=== PATIENT | male | born 1970 | race African-American/Black ===

== ENCOUNTER → 2018-02-26 01:01 | Outpatient (CLI) | payer MEDICAID, SELFPAY ==
[2018-02-26] MEDS: Gadoterate meglumine 20 ML VIAL IVP (10:02)
--- NOTE | 2018-02-26 10:10 | DI.REPORT_ITS ---
SYMPTOM/DIAGNOSIS: LEFT INSULA LESION ON CT HEAD, ABNL CT SCAN OF HEAD R93.0 BRAIN MRI: The study was accomplished according to the usual protocol. Sagittal T2, axial T2 diffusion weighted axial T2 hemo, axial T1, and T2 axial flare blade and post gadolinium enhanced coronal and axial T1 pulsed sequences were performed. There is no evidence of a hemorrhage or mass, and nothing to suggest an insular abnormality. The findings are consistent with small vessel disease. The ventricles are normal. There is nothing to suggest an infarct and no regions of contrast enhancement are apparent. Note is incidentally made of bilateral maxillary retention cysts. The paranasal sinuses are otherwise unremarkable. There is no evidence of a mastoid effusion. SUMMARY: No hemorrhage, mass or infarct is identified. There are symmetrical regions of increased signal in the posterior parietal white matter presumed to represent small vessel disease. Note is incidentally made of bilateral maxillary retention cysts.
== END ==
PROVIDERS: PCP Internal Medicine; Visit Provider Psychiatry & Neurology Neurology
DX: R93.0 Abnormal findings on diagnostic imaging of skull and head, not elsewhere classified (principal); I67.9 Cerebrovascular disease, unspecified; J34.1 Cyst and mucocele of nose and nasal sinus
CPT/HCPCS: 70553

== ENCOUNTER 2020-09-13 02:34 | Outpatient (CLI) | payer OTHER, SELFPAY | END 2020-09-13 02:35 | disposition home or self-care (01) | LOC: LBO 02:34 | PROVIDERS: PCP Internal Medicine; Visit Provider Otolaryngology Otolaryngology/Facial Plastic Surgery | DX: R68.89 Other general symptoms and signs (principal); J31.0 Chronic rhinitis | CPT/HCPCS: 36415; 86003 ==

== ENCOUNTER 2020-10-21 11:22 | Emergency (ER) | payer OTHER, SELFPAY ==
--- OUTSIDE RECORDS SUMMARY | 2020-10-21 11:29 | XMS_ITS ---
:1970 Author Care Team Providers Name Role Phone DR. CECY BENAVIDES Primary Care Provider [phone] DR. CECY BENAVIDES Referring Provider [phone] SADIA ANSLEY DO Urban Renewal Manager [phone] [facility] Adjunct Instructor In Economics [phone] CECY BENAVIDES (DIRECT) Primary Care Provider [phone] Allergies Code Code System Name Reaction Severity Status Onset [id number] Myalgias Moderate Active Reductase (Muscle Pain) 3 Inhibitors [id number] RxNorm Apple Anaphylaxis ? Active ? Nut - Anaphylaxis ? Active ? Unspecified [place] ? ? Active ? NKDA ? Medications Name Status Start Date Stop Date ? ? amlodipine 2.5 mg tablet Completed ? 021 Take 1 tablet every day by oral route for 30 days. amlodipine 5 mg tablet Active ? Not avail able Take 1 tablet every day by oral route for 30 days. amoxicillin 500 mg capsule Completed ? 05/09 Take one tablet BID for 10 days- ER 04/04/2017 armodafinil 150 mg tablet Completed ? 2018 take 1 tablet by mouth every morning Asmanex HFA 200 mcg/actuation aerosol inhaler Completed ? 09/11/2019 Inhale 2 puffs twice a day by inhalation route for 30 days. aspirin 81 mg tablet,delayed release Completed ? 02/16/2018 Take 1 tablet every day by oral route. azithromycin 250 mg tablet Completed ? 09/19 TAKE 2 TABLETS (500 MG) BY ORAL ROUTE O NCE DAILY FOR 1 DAY THEN 1 TABLET (250 MG) BY ORAL ROUTE ONCE DAILY FOR 4 DAYS celecoxib 200 mg capsule Completed ? 021 Take 1 capsule every day by oral route for 90 days. ciprofloxacin 500 mg tablet Active ? Not available Take 1 tablet every 12 hours by oral route for 14 days. Citrucel Sugar Free oral powder Active ? Not available 1 capful in a glass of water once daily Colace 100 mg capsule Active ? Not availa ble Take 1 capsule every day by oral route for 30 days. colchicine 0.6 mg tablet Completed 12/01/2018 020 Take 1 tablet every day by oral route. Compazine 5 mg tablet Completed ? 07/02/2017 Take 1 tablet every 8 hours by oral route as needed. Cosopt (PF) 2 %-0.5 % eye drops in a dropperette Completed 10/22/2017 07/03/2018 INSTILL 1 DROP INTO AFFECTED EYE(S) BY OPHTHALMIC ROUTE 2 TIMES PER DAY cyclobenzaprine 5 mg tablet Completed ? 06/20 Take 1 tablet as needed by oral route at bedtime. diclofenac potassium 50 mg tablet Completed ? 07/02/2017 take 1 tablet by mouth once daily if needed with food dicyclomine 10 mg capsule Completed ? 2016 Take 1 capsule 4 times a day by oral route. duloxetine 20 mg capsule,delayed release Completed ? 03/11/2019 take 1 capsule by mouth twice a day duloxetine 30 mg capsule,delayed release Active ? Not available take 1 capsule by mouth twice a day Durezol 0.05 % eye drops Completed 09/10/2017 018 INSTILL 1 DROP INTO AFFECTED EYE(S) BY OPHTHALMIC ROUTE 5 TIMES PER DAY ;START 24HRS POST OP X 2 WKS; THEN 2 TIMES/DAY X 7 DAYS; THEN TAPER Elocon 0.1 % topical cream Completed ? 05/31 APPLY A THIN LAYER TO THE AFFECTED AREA(S) BY TOPICAL ROUTE ONC E DAILY epinephrine 0.3 mg/0.3 mL injection, auto-injector Active ? Not available INJECT INTRAMUSCULARLY IF NEEDED FOR ANAPHLAXIS esomeprazole magnesium 40 mg capsule,delayed release Active ? Not available Take 1 capsule twice a day by oral route for 90 days. ezetimibe 10 mg tablet Active ? Not avail able take 1 tablet by mouth once daily Flovent Diskus 250 mcg/actuation powder for inhalation Completed ? 02/16/2018 Inhale 1 puff twice a day by inhalation route. gargle after each time fluticasone propionate 50 mcg/actuation nasal spray,suspension A ctive ? Not available [place] 2 sprays twice a day by intranasal route. folic acid 1 mg tablet Active 10/21/2018 Not avail able Take 1 tablet every day by oral route. gabapentin 600 mg tablet Completed ? 017 TAKE 1 TABLET (600 MG) BY ORAL ROUTE in the am and at noon and 2 at bedtime guaifenesin ER 600 mg tablet, extended release 12 hr Completed ? 09/19/2017 Take 1 tablet every 12 hours by oral route for 10 days. Inderal XL 80 mg capsule,extended release Completed ? 05/19/2017 take 1 capsule by mouth once daily irbesartan 150 mg tablet Completed ? 020 take 1.5 tablet by mouth once daily irbesartan 300 mg-hydrochlorothiazide 12.5 mg tablet Active ? Not available take 1 tablet by mouth every morning Kenalog 40 mg/mL suspension for injection Completed ? 12/10/2019 Take 1 mL by injection route. lancets Active ? Not available Patient needs a new glucose meter - One Touch Ultra and the lancets to go with the machine. Please issue one meter. Dx E11.9- This is medically necessary. 09/03/19-Called into [place] at [facility] with 3 refills Linzess 145 mcg capsule Completed ? 07/08/20 20 Take 1 capsule every day by oral route for 90 days. Linzess 290 mcg capsule Active ? Not avai lable Take 1 capsule every day by oral route for 30 days. loratadine 10 mg tablet Active ? Not avai lable Take 1 tablet every day by oral route. losartan 25 mg tablet Completed ? 12/16/2017 take 1 tablet by mouth once daily losartan 50 mg tablet Completed ? 10/07/2018 take 1 tablet by mouth once daily Lyrica 75 mg capsule Completed 06/05/2020 07/05/2020 Take 1 capsule every day by oral route. Maalox Advanced 200 mg-200 mg-20 mg/5 mL oral suspension Active ? Not available Take 10 mL 4 times a day by oral route as needed. magnesium oxide 400 mg (241.3 mg magnesium) tablet Completed ? 02/16/2018 Take 1 tablet every day by oral route. meclizine 25 mg tablet Completed ? 8 take 1 tablet by mouth three times a day if needed methotrexate 2.5 mg tablet Active 10/24/2018 Not a vailable Take 6 tablets every week by oral route. metoprolol succinate ER 25 mg tablet,extended release 24 hr Acti ve ? Not available Take 1.5 tablets every day by oral route for 30 days. Miralax 17 gram/dose oral powder Active ? Not available TAKE 17 GRAM MIXED WITH 8 OZ. WATER, JU ICE, SODA, COFFEE OR TEA BY ORAL ROUTE ONCE DAILY as needed modafinil 100 mg tablet Completed 01/13/2017 06/17/20 17 TAKE 1- 2 TABLETS (200 MG) BY ORAL ROUTE TWICE DAILY NEEDED modafinil 200 mg tablet Unknown 12/25/2016 Not avai lable Take 1 tablet every day by oral route. pilocarpine 5 mg tablet Completed 10/14/2019 07/25/19 21 Take 1 tablet 3 times a day by oral route as needed. prednisone 20 mg tablet Completed ? 11/15/19 20 3 tab po daily for 2 days then 2 tab da merced for 2 days then 1 tab daily for 2 days - take with food pregabalin 25 mg capsule Active ? Not thuy ilable take 1 capsule by mouth at bedtime propranolol ER 60 mg capsule,24 hr,extended release Completed ? 06/06/2017 1 cap every other day for 10 day then stop propranolol ER 80 mg capsule,24 hr,extended release Unknown ? Not available Take 1 capsule(s) every day by oral route. Pulmicort Flexhaler 180 mcg/actuation breath activated Completed ? 09/27/2020 Inhale 2 puffs twice a day by inhalation route for 30 days. gargle after Remicade Active 10/22/2018 Not available per rheum , for behcet 5mg/kg q 6 wk riboflavin (vitamin B2) Completed ? 10/16/19 18 200 mg daily rizatriptan 5 mg tablet Completed 12/25/2017 07/03/20 18 TAKE 1 TABLET (5 MG) BY ORAL ROUTE ONCE , MAY REPEAT AT 2 HOUR INTERVALS; DO NOT EXCEED 20 MG IN 24 HOURS Singulair Active ? Not available 10 mg qd for allergies Sonata 10 mg capsule Completed 08/05/2016 07/02/2017 Take 1 capsule every day by oral route at bedtime. tamsulosin 0.4 mg capsule Active ? Not av ailable Take 1 capsule every day by oral route after meals for 30 days. Tessalon Perles 100 mg capsule Completed 02/12/2018 1 09/03/2017 Take 1 capsule 3 times a day by oral route as needed for 30 day s. tizanidine 4 mg tablet Completed ? 1 Take 1 tablet as needed by oral route at bedtime for 30 days. 1/2 - 1 tablet at bedtime as needed for muscle spasm/pain Topamax 25 mg tablet Completed ? 07/02/2017 Take 1.5 tablets twice a day by oral route for 30 days. start at 1/d in evening and then after 1 wk increase to twice d aily Topamax 50 mg tablet Completed ? 09/19/2017 Take 1 tablet twice a day by oral route for 30 days. topiramate 100 mg tablet Completed 08/10/2017 018 Take 1 tablet every day by oral route in the evening. topiramate 200 mg tablet Completed ? 019 Take 1 tablet every day by oral route at bedtime. triamcinolone acetonide 0.1 % topical ointment Active 1 09/08/2018 Not available APPLY A THIN LAYER TO THE AFFECTED AREA(S) BY TOPICAL ROUTE 2 T IMES PER DAY Trulicity 0.75 mg/0.5 mL subcutaneous pen injector Completed ? 09/09/2019 Inject 0.5 mL every week by subcutaneous route for 90 days. Trulicity 1.5 mg/0.5 mL subcutaneous pen injector Active ? Not available INJECT 0.5ML (1.5MG) SUBCUTANEOUSLY EVERY WEEK Tylenol Arthritis Pain 650 mg tablet,extended release Active ? Not available Take 2 tablets twice a day by oral route for 30 days. Ventolin HFA 90 mcg/actuation aerosol inhaler Active ? Not available Inhale 2 puffs every 4 hours by inhalation route as needed. use as needed if short of breath, wheez ing or cough , or before walking up the hill Victoza 3-Pranav 0.6 mg/0.1 mL (18 mg/3 mL) subcutaneous pen inject or Completed ? 05/07/2019 Inject 1.2 mg every day by subcutaneous route for 30 days. Vitamin D2 1,250 mcg (50,000 unit) capsule Active ? Not available take 1 capsule by mouth every week Vitamin D3 50 mcg (2,000 unit) capsule Completed ? 12/01/2018 Take 1 capsule every day by oral route with meals. Zantac 150 mg tablet Completed ? 07/08/2019 Take 1 tablet twice a day by oral route. Zofran Completed ? 05/06/2019 prescribed by ER. Notes: autoPAP titration started 02/03 optimal pressure was found to be 8- 18 cwp- Problems Name Status Onset Date Source ? Fibromyalgia Active 01/26/2013 ? Headache Active 01/26/2013 ? Abdominal Pain Active 01/26/2013 ? Arthritis Active 04/12/2013 ? Ulcerative Rhinitis Unknown 08/21/2013 ? Polyp of Colon Active 03/21/2014 ? Insomnia Active 09/30/2014 ? Hypertensive Disorder Active 09/30/2014 ? Neck Pain Active 09/30/2014 ? Shoulder Joint Pain Active 09/28/2015 ? Cervical Disc Disorder with Radiculopathy Active 2015 ? Low Back Pain Active 12/11/2015 ? Small Bowel Bacterial Overgrowth Syndrome Unknown 2015 ? Knee Pain Active 03/13/2016 ? Snoring Symptoms Unknown 08/24/2016 ? Steatosis of Liver Active 09/05/2016 ? Obstructive Sleep Apnea Syndrome Active 10/29/2016 ? Dyspnea on Exertion Unknown 03/18/2017 ? 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 Obesity Active 05/11/2017 ? Migraine Active 05/20/2017 ? Gallstone Active 05/20/2017 ? Near Syncope Active 05/20/2017 ? Anxiety Disorder Active 05/24/2017 ? Carpal Tunnel Syndrome Active 06/08/2017 ? Vertigo Active 06/08/2017 ? Vitamin D Deficiency Active 06/10/2017 ? Numbness and Tingling Sensation of Skin Active 06/10/20 17 ? Protein Electrophoresis Abnormal Unknown 06/10/2017 ? Type 2 Diabetes Mellitus Active 06/17/2017 ? Uveitis Active 09/11/2017 ? Syncope Active 10/19/2017 ? 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 Chronic Post-traumatic Stress Disorder Active 9 ? Constipation Active 12/10/2019 ? Spinal Stenosis of Lumbar Region Active 12/20/2019 ? Intertrigo Active 02/02/2020 ? Acetabular Labrum Tear Active 04/14/2020 ? Bacterial Overgrowth Syndrome Active ? ? Hyperlipidemia Active ? ? Sickle Cell Trait Active ? ? Depressive Disorder Active ? ? Allergic Rhinitis Active ? ? Gastroesophageal Reflux Disease Active ? ? Irritable Bowel Syndrome Active ? ? Adult Health Examination Active ? ? Tear of Right Rotator Cuff Active ? ? Notes: Elevated CPK: Chronic stanton vated CPK, AND h/o diffuse pain seem to have worsennped after statins in 2012 , pain is better but still hi CPK mildly -no treatment for now. Procedures Date Name Performed by ? 08/23/2020 Prosthetic Arthroplasty of the Hip Infor mation not available Notes: left SABRINA 01/29/2016 Lissette Arthrs Srg Capsulorraphy Information not available Notes: 01/29/16 Right arth roscopic shoulder surgery and acromial decompression 07/21/2004 Appendectomy Information not avai lable 09/02/2016 US, Liver DO Not Use [facility] [address] [place] [address] (Work [address]) 03/17/2017 XR, Chest, 2 View DO Not Use [facility] ospital Radiology [address] [place] [address] (Work Place) 04/01/2017 Electrocardiogram DO Not Use [facility] [address] [place] [address] (Work Place) 05/09/2017 CT, Chest, W/ Contrast DO Not Use [facility] [address], [place] [id number] (Work Place) 05/09/2017 US, Echocardiogram DO Not Use [facility] [address] [place], [place] [id number] (Work Place) 05/15/2017 CT, Chest, W/o Contrast DO Not Use [facility] [address] [place] [address] (Work Place) 06/06/2017 Holter Monitor DO Not Use [facility] [address], [place] [id number] (Work Place) 09/13/2017 XR, Chest, 2 View DO Not Use [facility] Radiology [address] [place] [address] [id number] (Work Place) 01/28/2019 XR, Abdomen, 1 View [facility] - R adiology [address], [place] [id number] (Work Place) 11/15/2019 CT, Angiogram, Chest, W/ Contrast [facility] - Radiology [address] [place] [address] (Work Place) 11/15/2019 XR, Hip, Unilateral, [address] [facility] [address] [place] [address] (Work Place) 11/15/2019 XR, Chest, 2 View [facility] adiology [address] [place] [address] (Work Place) 12/20/2019 MRI, Lumbar Spine, W/o Contrast [address] [id number] (Work Place) 06/22/2020 Electrocardiogram [facility] - Internal Medic ine [address] [place] [phone] ([address]) 06/24/2020 US, Carotid Artery [facility] adiology [address] [place] [address] (Work Place) 07/12/2020 MRI, Brain, W/o Contrast [facility] l - Radiology [address] [place] [address] (Work Place) 07/25/2020 Electrocardiogram [facility] - Internal Medic ine [address] [place] [address] [phone] ([address] [place] [address]) Results Lab Results Date Name Specimen Result Interpretation Description Value Range Status Address ? 09/27/2020 CBC W/ WB Normal Wbc 7.8 4.8-10.8 Final [facility] Manual 10^3/mm^3 10^3/mm^3 Hosp ital Diff (Lab): [address] [place] [address] ? ? WB Normal Rbc 5.71 4.20-5.90 Final [facility] 10^6/mm^3 10^6/mm^3 Hosp ital (Lab): [address] [place] [address] ? ? WB Normal Hgb 14.0 g/dL 13.5-17.5 Final [facility] g/dL Hospital (Lab): [address] [place] [address] ? ? WB Normal Hct 42 % 40-50 % Final [facility] Hospital (Lab): [address] [facility] ? ? WB Low Mcv 73.9 fL 80.0-97.0 Final [facility] Hospital (Lab): 90 [facility] ? ? WB Low Mch 24.5 pg 27.5-32.1 Final [facility] Hospital (Lab): 90 [facility] ? ? WB Normal Mchc 33 g/dL 33-36 g/dL Final [facility] (Lab): 90 [facility] ? ? WB High Rdw 14.9 % 11.6-14.8 % Final [facility] (Lab): 90 [facility] ? ? WB High Plate 434 150-400 Final [facility] 10^3/mm^3 10^3/mm^3 Hosp ital (Lab): 90 [facility] ? ? WB Normal %Neut 59 % 40-75 % Final [facility] Hospital (Lab): 90 [facility] ? ? WB Normal %Band 1 % 0-5 % Final [facility] Hospital (Lab): [facility] ? ? WB Normal %Lymp 24 % 20-45 % Final [facility] Hospital (Lab): [facility] ? ? WB Normal %Bates 9 % 2-10 % Final [facility] Hospital (Lab): [facility] ? ? WB Normal %Eosi 3 % 1-6 % Final [facility] (Lab): [facility] ? ? WB ? %Atyp 2 % ? Final [facility] 90 [facility] ? ? WB ? %Atlantic 1 % ? Final [facility] myeloc Hospital yte (Lab): 90 [facility] ? ? WB ? %Myel 1 % ? Final [facility] ([facility] 90 [facility] ? ? WB Normal Plate adequate adequate Final [facility] Hospital Estima (Lab): 90 te [facility] 09/27/2020 Hepatic P Normal Alt 61 U/L 16-63 U/L Final [facility] ttage Function Hospital Panel, (Lab): 90 Serum [facility] ? ? P Normal Ast 19 U/L 15-37 U/L Final [facility] Hospital (Lab): 90 [facility] ? ? P Normal Alkp 83 U/L 41-108 U/L Final [facility] (Lab): 90 [facility] ? ? P Normal Tbil 0.4 mg/dL <=1.2 mg/dL Final [facility] Hospital (Lab): 90 [facility] ? ? P Normal Dbil 0.10 mg/dL 0.00-0.20 Final [facility] mg/dL Hospital (Lab): [address] [place] [address] ? ? P Normal Tp 8.2 g/dL 6.4-8.2 Final [facility] g/dL Hospital (Lab): [address] [place] [address] ? ? P Normal Alb 4.2 g/dL 3.4-5.0 Final [facility] g/dL Hospital (Lab): [address] [place] [address] ? ? P ? Glob 3.99 mg/dL ? Final [facility] (Lab): [address] [place] [address] 09/27/2020 TSH + Free P Normal Tsh 0.946 mIU/mL 0.340-3.74 0 Final [facility] T4, Serum mIU/mL Hospita l (Lab): 90 [facility] 09/27/2020 C Reactive P Normal Crp 0.80 mg/dL <0.90 mg/dL Final [facility] Protein, [facility] QN, Serum (Lab): 90 or Plasma [facility] 09/27/2020 CK P Normal Ck 159 U/L 39-308 U/L Final [facility] (Creatine Hospita l Kinase), (Lab): 9 0 Total, [facility] 09/27/2020 BMP, Serum P Normal Glu 94 mg/dL 70-100 Final [facility] or Plasma mg/dL Hospita l (Lab): 90 [facility] ? ? P Normal Bun 17 mg/dL 7-18 mg/dL Final [facility] (Lab): [address] [place] [address] ? ? P High Creat 1.35 mg/dL 0.70-1.30 Final [facility] mg/dL Hospital (Lab): [address] [place] [address] ? ? P Normal Na 142 mEq/L 136-145 Final [facility] e mEq/L Hospital (Lab): [address] [place] [address] ? ? P Normal K 4.1 mEq/L 3.5-5.1 Final [facility] e mEq/L Hospital (Lab): [address] [place] [address] ? ? P Normal Cl 102 mEq/L 98-107 Final [facility] mEq/L Hospital (Lab): [address] [place] [address] ? ? P Normal Co2 25 mEq/L 21-31 mEq/L Final [facility] (Lab): [address] [place] [address] ? ? P Normal Ca 9.2 mg/dL 8.5-10.1 Final [facility] ge mg/dL Hospital (Lab): [address] [place] [address] ? ? P ? Agap 18.8 ? Final [facility] calculation Hospi lilia (Lab): [address] [place] [address] ? ? P ? Bn/cr 12.4 ratio ? Final [facility] e Hospital (Lab): [address] [place] [address] ? ? P ? Egfra 67.26 ? Final [facility] a Hospital (Lab): [address] [place] [address] ? ? P ? Egfrn 55.50 ? Final [facility] aa Hospital (Lab): [address] [place] [address] 09/27/2020 Magnesium, P Normal mg 2.2 mg/dL 1.8-2.4 Final [facility] Serum or mg/dL Hospital Plasma (Lab): [address] [place] [address] 09/27/2020 Erythrocyt WB High Esr 32.00 mm/HR 0.00-15.00 Final [facility] e mm/HR Hospital Sedimentat (Lab): 90 [facility] ille Method 09/27/2020 PSA, Serum S High PSA-D 5.55 NG/mL <4.00 NG/mL Final [facility] or Plasma Hospita l (Lab): [address] [place] [address] 09/27/2020 Culture, U ? Usour random ? Final [facility] U[facility] Hospital (Lab): 90 [facility] ? ? U ? Culre no growth at ? Final Sukhdev age sult 48HR Hospital (Lab): 90 [facility] 09/27/2020 Culture, WB ? Bdcul no growth ? Final C ottage Blood t after 5 days Hosp ital (Lab): 90 [facility] 09/27/2020 Urinalysis ? Appea Slightly ? ? Rhc - , Dipstick sunshine Cloudy Protective Signal Installer al Medicine: 103 [facility] ? ? ? Gluco Negative ? ? Rhc - se Internal Medicine: 103 [facility] ? ? ? Bilir Negative ? ? Rhc - ubin Internal Medicine: 103 [facility] ? ? ? Keton Negative ? ? Rhc - es Internal Medicine: 103 [facility] ? ? ? Speci 1.03 ? ? Rhc - fic Internal Gravit Medicine: y [address] [facility] ? ? ? Blood Trace ? ? Rhc - Internal Medicine: [address] [place] [address] ? ? ? Ph 5.0 ? ? Rhc - Internal Medicine: 103 [facility] ? ? ? Prote Trace ? ? Rhc - in Internal Medicine: [address] [place] [address] ? ? ? Urobi Normal ? ? Rhc - lirubi Internal n Medicine: [address] [place] [address] ? ? ? Nitra positive ? ? Rhc - kathe Internal Medicine: [address] [place] [address] ? ? ? Leuko Negative ? ? Rhc - cytes Internal Medicine: 103 [facility] 09/27/2020 Urinalysis Urine ? Appea Slightly ? ? Rhc - , Dipstick sunshine Cloudy Protective Signal Installer al Medicine: 103 [facility] ? ? Urine ? Gluco Negative ? ? Rhc - se Internal Medicine: 103 [facility] ? ? Urine ? Bilir Negative ? ? Rhc - ubin Internal Medicine: 103 [facility] ? ? Urine ? Keton Negative ? ? Rhc - es Internal Medicine: 103 [facility] ? ? Urine ? Speci 1.03 ? ? Rhc - fic Internal Gravit Medicine: y 103 [facility] ? ? Urine ? Blood Negative ? ? Rhc - Internal Medicine: 103 [facility] ? ? Urine ? Ph 5.0 ? ? Rhc - Internal Medicine: 103 [facility] ? ? Urine ? Prote Negative ? ? Rhc - in Internal Medicine: 103 [facility] ? ? Urine ? Urobi Normal ? ? Rhc - lirubi Internal n Medicine: 103 [facility] ? ? Urine ? Nitra negative ? ? Rhc - kathe Internal Medicine: 103 [facility] ? ? Urine ? Leuko Negative ? ? Rhc - cytes Internal Medicine: 103 [facility] 07/25/2020 Electrocar ? Rate 89/800 ? ? Rh c - diogram & Internal Rhythm Medicine: 103 [facility] ? ? ? Qrs -9 ? ? Rhc - Internal Medicine: 103 [facility] ? ? ? PA 175 ? ? Rhc - Interv Internal al Medicine: 103 [facility] ? ? ? QRS 87 ? ? Rhc - Durati Internal on Medicine: 103 [facility] ? ? ? QT 413 ? ? Rhc - Interv Internal al Medicine: 103 [facility] 06/26/2020 Electrocar ? Rate 91 & 800 ? ? Rhc - diogram & Internal Rhythm Medicine: 103 [facility] ? ? ? Qrs 12 ? ? Rhc - Internal Medicine: 103 [facility] ? ? ? PA 171 ? ? Rhc - Interv Internal al Medicine: 103 [facility] ? ? ? QRS 83 ? ? Rhc - Durati Internal on Medicine: 103 [facility] ? ? ? QT 408 ? ? Rhc - Interv Internal al Medicine: 103 [facility] 06/24/2020 Urinalysis U ? Urine random ? Final [facility] Dipstick, tion (Lab): 90 Reflex Method [facility] ? ? U Normal Color light yellow yellow Final [facility] (Lab): 90 [facility] ? ? U Normal Raji clear clear Final [facility] Hospital (Lab): 90 [facility] ? ? U Normal Spgr 1.020 1.015-1.025 Final [facility] (Lab): 90 [facility] ? ? U ? Ph 5.0 ? Final [facility] Hospital (Lab): 90 [facility] ? ? U Normal Gluc negative negative Final [facility] (Lab): 90 [facility] ? ? U Normal Bilb negative negative Final [facility] (Lab): 90 [facility] ? ? U Normal Ket negative negative Final [facility] (Lab): 90 [facility] ? ? U Normal Bld negative negative Final [facility] (Lab): 90 [facility] ? ? U Normal Prot negative negative Final [facility] (Lab): 90 [facility] ? ? U Normal Uro 0.2 E.U./dL 0.2 E.U./dL Final [facility] (Lab): 90 [facility] ? ? U Normal Nit negative negative Final [facility] (Lab): 90 [facility] ? ? U Normal Leuko negative negative Final [facility] (Lab): 90 [facility] 06/24/2020 Microalbum U High Malb 23.3 mg/L 0.0-20.0 Faustina l [facility] in/creatin mg/L Hospit al ine, Ratio (Lab): 90 Panel, [facility] ? ? U ? Ucrea 193.23 mg/dL ? Final [facility] (Lab): 90 [facility] ? ? U Normal Alb/c 12.1 calc <30.0 calc Final [facility] (Lab): 90 [facility] 06/24/2020 HbA1C WB High A1C 6.0 % <5.7 % Final [facility] (Hemoglobi Hospit al n a1C), (Lab): 90 Blood [facility] ? ? WB Normal Estav 126 calc <140 calc Final [facility] Hospital (Lab): 90 [facility] 06/24/2020 CBC W/ WB Normal Wbc 9.9 4.8-10.8 Final [facility] age Manual 10^3/mm^3 10^3/mm^3 Hosp ital Diff (Lab): [facility] ? ? WB Normal Rbc 5.74 4.20-5.90 Final [facility] 10^6/mm^3 10^6/mm^3 Hosp ital (Lab): [facility] ? ? WB Normal Hgb 14.2 g/dL 13.5-17.5 Final [facility] age g/dL Hospital (Lab): [facility] ? ? WB Normal Hct 42 % 40-50 % Final [facility] (Lab): [facility] ? ? WB Low Mcv 73.7 fL 80.0-97.0 Final [facility] Hospital (Lab): [facility] ? ? WB Low Mch 24.7 pg 27.5-32.1 Final [facility] Hospital (Lab): [facility] ? ? WB Normal Mchc 34 g/dL 33-36 g/dL Final [facility] (Lab): [facility] ? ? WB Normal Rdw 14.4 % 11.6-14.8 % Final [facility] (Lab): [facility] ? ? WB Normal Plate 305 150-400 Final [facility] lets 10^3/mm^3 10^3/mm^3 Hosp ital (Lab): [facility] ? ? WB Normal %Neut 51 % 40-75 % Final [facility] Hospital (Lab): [facility] ? ? WB Normal %Lymp 22 % 20-45 % Final [facility] hocyte Hospital (Lab): [facility] ? ? WB Normal %Bates 8 % 2-10 % Final [facility] cyte Hospital (Lab): [facility] ? ? WB ? %Atyp 19 % ? Final [facility] ([facility] ? ? WB Normal Plate adequate adequate Final [facility] Hospital Estima (Lab): 90 te [facility] ? ? WB ? Hypoc 1+ ? Final [facility] hromas Hospital ia (Lab): [facility] ? ? WB ? Micro 2+ ? Final [facility] cytosi Hospital s (Lab): 90 [facility] 06/24/2020 Erythrocyt WB Normal Esr 10.00 mm/HR 0.00-15.00 Final [facility] e mm/HR Hospital Sedimentat (Lab): 90 [facility] ille Method 06/24/2020 CMP, Serum P Normal Na 144 mEq/L 136-145 Final [facility] or Plasma mEq/L Hospita l (Lab): [facility] ? ? P Normal K 4.2 mEq/L 3.5-5.1 Final [facility] mEq/L Hospital (Lab): [address] [place] [address] ? ? P Normal Cl 107 mEq/L 98-107 Final [facility] mEq/L Hospital (Lab): [address] [place] [address] ? ? P Normal Co2 29 mEq/L 21-31 mEq/L Final [facility] Hospital (Lab): [address] [place] [address] ? ? P ? Agap 13.1 ? Final [facility] calculation Hospi lilia (Lab): [facility] ? ? P Normal Glu 99 mg/dL 70-100 Final [facility] mg/dL Hospital (Lab): [address] [place] [address] ? ? P High Bun 19 mg/dL 7-18 mg/dL Final [facility] (Lab): [address] [place] [address] ? ? P Normal Creat 1.18 mg/dL 0.70-1.30 Final [facility] mg/dL Hospital (Lab): [address] [place] [address] ? ? P ? Bn/cr 16.1 ratio ? Final [facility] (Lab): [address] [place] [address] ? ? P Normal Ca 9.2 mg/dL 8.5-10.1 Final [facility] mg/dL Hospital (Lab): [address] [place] [address] ? ? P Normal Alkp 79 U/L 41-108 U/L Final [facility] (Lab): [address] [place] [address] ? ? P High Alt 74 U/L 16-63 U/L Final [facility] (Lab): 90 [facility] ? ? P Normal Ast 22 U/L 15-37 U/L Final [facility] (Lab): 90 [facility] ? ? P Normal Tbil 0.5 mg/dL <=1.2 mg/dL Final [facility] (Lab): 90 [facility] ? ? P Normal Tp 7.1 g/dL 6.4-8.2 Final [facility] g/dL Hospital (Lab): 90 [facility] ? ? P Normal Alb 3.8 g/dL 3.4-5.0 Final [facility] g/dL Hospital (Lab): 90 [facility] ? ? P ? Glob 3.25 mg/dL ? Final [facility] (Lab): [address] [place] [address] ? ? P ? A/g 1.2 calc ? Final [facility] (Lab): [address] [place] [address] ? ? P ? Egfra 78.57 ? Final [facility] Hospital (Lab): [address] [place] [address] ? ? P ? Egfrn 64.82 ? Final [facility] Hospital (Lab): 90 [facility] 06/24/2020 CK P Normal Ck 301 U/L 39-308 U/L Final [facility] (Creatine Hospita l Kinase), (Lab): 9 0 Total, [facility] 06/24/2020 Magnesium, P Normal mg 2.1 mg/dL 1.8-2.4 Final [facility] Serum or mg/dL Hospital Plasma (Lab): 90 [facility] 06/24/2020 Lipid P High Chol 214 mg/dL <200 mg/dL Final [facility] Serum (Lab): 90 [facility] ? ? P Normal Hdl 40 mg/dL 40-60 mg/dL Final [facility] Hospital (Lab): 90 [facility] ? ? P Normal Trig 107 mg/dL 30-150 Final [facility] mg/dL Hospital (Lab): 90 [facility] ? ? P High LDL(C 153 calc <100 calc Final [facility] Hospital (Lab): 90 [facility] ? ? P ? Risk 5.3 calc ? Final [facility] (Lab): [address] [place] [address] 06/24/2020 TSH + Free P Normal Tsh 0.789 mIU/mL 0.340-3.74 0 Final [facility] T4, Serum mIU/mL Hospita l (Lab): [address] [place] [address] 06/24/2020 C Reactive P Normal Crp 0.20 mg/dL <0.90 mg/dL Final [facility] Protein, [facility] QN, Serum (Lab): 90 or Plasma [facility] 01/26/2020 HbA1C WB High A1C 6.0 % <5.7 % Final [facility] (Hemoglobi Hospit al n a1C), (Lab): 90 Blood [facility] ? ? WB Normal Estav 126 calc <140 calc Final [facility] Hospital (Lab): [address] [place] [address] 01/26/2020 CBC W/ WB Normal Wbc 10.0 4.8-10.8 Final [facility] Auto Diff 10^3/mm^3 10^3/mm^3 H ospital (Lab): [address] [place] [address] ? ? WB Normal Rbc 5.89 4.20-5.90 Final [facility] 10^6/mm^3 10^6/mm^3 Hosp ital (Lab): [address] [place] [address] ? ? WB Normal Hgb 14.7 g/dL 13.5-17.5 Final [facility] age g/dL Hospital (Lab): [address] [place] [address] ? ? WB Normal Hct 44 % 40-50 % Final [facility] Hospital (Lab): [address] [place] [address] ? ? WB Low Mcv 74.5 fL 80.0-97.0 Final [facility] fL Hospital (Lab): [address] [place] [address] ? ? WB Low Mch 25.0 pg 27.5-32.1 Final [facility] pg Hospital (Lab): [address] [place] [address] ? ? WB Normal Mchc 34 g/dL 33-36 g/dL Final [facility] (Lab): 90 [facility] ? ? WB Normal Rdw 14.3 % 11.6-14.8 % Final [facility] (Lab): 90 [facility] ? ? WB Normal Plate 304 150-400 Final [facility] 10^3/mm^3 10^3/mm^3 Hosp ital (Lab): 90 [facility] 01/26/2020 CBC, WB Normal %Neut 67 % 40-75 % Final [facility] ge Reflex [facility] Manual (Lab): 90 Diff [facility] ? ? WB Normal %Band 0 % 0-5 % Final [facility] Hospital (Lab): 90 [facility] ? ? WB Normal %Lymp 23 % 20-45 % Final [facility] ([facility] 90 [facility] ? ? WB Normal %Bates 2 % 2-10 % Final [facility] Hospital (Lab): [facility] ? ? WB Normal %Eosi 2 % 1-6 % Final [facility] Hospital (Lab): 90 [facility] ? ? WB Normal %Baso 0 % 0-1 % Final [facility] Hospital (Lab): 90 [facility] ? ? WB ? %Atyp 5 % ? Final [facility] Lymph (Lab): 90 [facility] ? ? WB ? %Atlantic 1 % ? Final [facility] myeloc [facility] yte (Lab): 90 [facility] ? ? WB ? %Myel 0 % ? Final [facility] ocyte Hospital (Lab): 90 [facility] ? ? WB ? %Prom 0 % ? Final [facility] te (Lab[facility] 90 [facility] ? ? WB ? %Sadiq 0 % ? Final [facility] t Hospital (Lab): 90 [facility] ? ? WB ? Nrbc 0 /100 WBC ? Final [facility] e Hospital (Lab): 90 [facility] ? ? WB Normal Plate adequate adequate Final [facility] let Hospital Estima (Lab): 90 te [facility] 01/26/2020 CK P Normal Ck 200 U/L 39-308 U/L Final [facility] (Creatine Hospita l Kinase), (Lab): 9 0 Total, [place] Serum [facility] 01/26/2020 Magnesium, P Normal mg 2.1 mg/dL 1.8-2.4 Final [facility] Serum or mg/dL Hospital Plasma (Lab): [address] [place] [address] 01/26/2020 BMP, Serum P High Glu 104 mg/dL 70-100 Final [facility] or Plasma mg/dL Hospita l (Lab): [address] [place] [address] ? ? P High Bun 20 mg/dL 7-18 mg/dL Final [facility] (Lab): [address] [place] [address] ? ? P Normal Creat 1.30 mg/dL 0.70-1.30 Final [facility] mg/dL Hospital (Lab): [address] [place] [address] ? ? P Normal Na 145 mEq/L 136-145 Final [facility] mEq/L Hospital (Lab): [address] [place] [address] ? ? P Normal K 3.9 mEq/L 3.5-5.1 Final [facility] mEq/L Hospital (Lab): [address] [place] [address] ? ? P Normal Cl 107 mEq/L 98-107 Final [facility] mEq/L Hospital (Lab): [address] [place] [address] ? ? P Normal Co2 27 mEq/L 21-31 mEq/L Final [facility] Hospital (Lab): [address] [place] [address] ? ? P Normal Ca 8.7 mg/dL 8.5-10.1 Final [facility] ge mg/dL Hospital (Lab): [address] [place] [address] ? ? P ? Agap 14.5 ? Final [facility] calculation Hospi lilia (Lab): [address] [place] [address] ? ? P ? Bn/cr 15.0 ratio ? Final [facility] e Hospital (Lab): [address] [place] [address] ? ? P ? Egfra 70.54 ? Final [facility] a Hospital (Lab): [address] [place] [address] ? ? P ? Egfrn 58.20 ? Final [facility] aa Hospital (Lab): [address] [place] [address] 01/26/2020 Erythrocyt WB Normal Esr 7.00 mm/HR 0.00-15.00 [place] e mm/HR Hospital Sedimentat (Lab): 90 [address], [place] ille Method 01/26/2020 Urinalysis ? Appea Clear ? ? Rh c - , Dipstick sunshine [employer] al Medicine: 103 [facility] ? ? ? Gluco Negative ? ? Rhc - se Internal Medicine: 103 [facility] ? ? ? Bilir Negative ? ? Rhc - ubin Internal Medicine: 103 [facility] ? ? ? Keton Negative ? ? Rhc - es Internal Medicine: 103 [facility] ? ? ? Speci 1.03 ? ? Rhc - fic Internal Gravit Medicine: y 103 [facility] ? ? ? Blood Negative ? ? Rhc - Internal Medicine: 103 [facility] ? ? ? Ph 5.0 ? ? Rhc - Internal Medicine: 103 [facility] ? ? ? Prote Negative ? ? Rhc - in Internal Medicine: 103 [facility] ? ? ? Urobi Normal ? ? Rhc - lirubi Internal n Medicine: 103 [facility] ? ? ? Nitra negative ? ? Rhc - kathe Internal Medicine: 103 [facility] ? ? ? Leuko Negative ? ? Rhc - cytes Internal Medicine: 103 [facility] 01/26/2020 Glucose, ? Blood 88 ? ? Rhc - Fingerstic Glucos [employer] al k, Blood e: Medicine : mg/dl 103 [facility] 11/15/2019 BMP, Serum P Normal Glu 87.0 mg/dL 70.0-100.0 F [facility] or Plasma mg/dL Hospita l (Lab): 90 [facility] ? ? P Normal Bun 12 mg/dL 7-18 mg/dL Final [facility] (Lab): 90 [facility] ? ? P Normal Creat 1.17 mg/dL 0.70-1.30 Final [facility] mg/dL Hospital (Lab): 90 [facility] ? ? P Normal Na 140 mEq/L 136-145 Final [facility] e mEq/L Hospital (Lab): [address] [place] [address] ? ? P Normal K 4.2 mEq/L 3.5-5.1 Final [facility] e mEq/L Hospital (Lab): [address] [place] [address] ? ? P Normal Cl 103 mEq/L 98-107 Final [facility] mEq/L Hospital (Lab): [address] [place] [address] ? ? P Normal Co2 26 mEq/L 21-32 mEq/L Final [facility] (Lab): [address] [place] [address] ? ? P Normal Ca 9.0 mg/dL 8.5-10.1 Final [facility] ge mg/dL Hospital (Lab): [address] [place] [address] ? ? P ? Agap 16.1 ? Final [facility] calculation Hospi lilia (Lab): [address] [place] [address] ? ? P ? Bn/cr 10.2 ratio ? Final [facility] e Hospital (Lab): [address] [place] [address] ? ? P ? Egfra 79.66 ? Final [facility] a Hospital (Lab): [address] [place] [address] ? ? P ? Egfrn 65.72 ? Final [facility] aa Hospital (Lab): [address] [place] [address] 11/15/2019 D-dimer WB Normal Ddime 166.0 NG/mL 0.0-400.0 Faustina lara [facility] FEU, QN, r NG/mL Hospital IA, Blood (Lab): [address] [place] [address] 11/15/2019 CBC W/ WB Normal Wbc 6.8 4.8-10.8 Final [facility] age Manual 10^3/mm^3 10^3/mm^3 Hosp ital Diff (Lab): [address] [place] [address] ? ? WB High Rbc 6.05 4.20-5.90 Final [facility] 10^6/mm^3 10^6/mm^3 Hosp ital (Lab): [address] [place] [address] ? ? WB Normal Hgb 15.1 g/dL 13.5-17.5 Final [facility] age g/dL Hospital (Lab): [address] [place] [address] ? ? WB Normal Hct 45 % 40-50 % Final [facility] Hospital (Lab): 90 [facility] ? ? WB Low Mcv 74.9 fL 80.0-97.0 Final [facility] fL Hospital (Lab): 90 [facility] ? ? WB Low Mch 25.0 pg 33.0-36.0 Final [facility] pg Hospital (Lab): 90 [facility] ? ? WB Normal Mchc 33 g/dL 33-36 g/dL Final [facility] (Lab): 90 [facility] ? ? WB High Rdw 15.1 % 11.6-14.8 % Final [facility] (Lab): 90 [facility] ? ? WB Normal Plate 259 150-400 Final [facility] 10^3/mm^3 10^3/mm^3 Hosp ital (Lab): 90 [facility] ? ? WB Normal %Neut 63 % 40-75 % Final [facility] Hospital (Lab): 90 [facility] ? ? WB Normal %Lymp 30 % 20-45 % Final [facility] hocyte Hospital (Lab): 90 [facility] ? ? WB Normal %Bates 6 % 2-10 % Final [facility] cyte Hospital (Lab): 90 [facility] ? ? WB Normal %Eosi 1 % 1-6 % Final [facility] Hospital (Lab): 90 [facility] ? ? WB Normal Plate adequate adequate Final [facility] Hospital Estima (Lab): 90 te [facility] ? ? WB ? Aniso 1+ ? Final [facility] Hospital s (Lab): 90 [facility] ? ? WB ? Micro 1+ ? Final [facility] Hospital s (Lab): 90 [facility] 11/02/2019 Novel Normal Sars- not detected not Final [facility] Coronaviru cov-2, detected Hosp ital s 2019, BANDAR (Lab): 90 PCR, [place] 09/09/2019 Glucose, ? Blood 104 ? ? Rhc - Fingerstic Glucos [employer] al k, Blood e: Medicine : mg/dl 103 [facility] 09/06/2019 HbA1C WB High A1C 6.4 % 4.5-6.2 % Final [facility] (Hemoglobi Hospit al n a1C), (Lab): 90 Blood [facility] ? ? WB ? Eag 137 calc ? Final [facility] Hospital (Lab): 90 [facility] 09/06/2019 Microalbum U Normal Malb 12.2 mg/L 0.0-20.0 Faustina l [facility] in/creatin mg/L Hospit al ine, Ratio (Lab): 90 Panel, [place] Urine [facility] ? ? U ? Ucrea 191 mg/dL ? Final [facility] Hospital (Lab): 90 [facility] ? ? U ? Alb/c 6.4 calc ? Final [facility] re Hospital (Lab): 90 [facility] 07/08/2019 Glucose, ? Blood 95 ? ? Rhc - Fingerstic Glucos [employer]er al k, Blood e: Medicine : mg/dl 103 [facility] 03/07/2019 CK P Normal Ck 242 U/L 39-308 U/L Final [facility] (Creatine Hospita l Kinase), (Lab): 9 0 Total, [place] Serum [facility] 03/07/2019 CMP, Serum P Normal Na 141 mEq/L 136-145 Final [facility] or Plasma mEq/L Hospita l (Lab): 90 [facility] ? ? P Normal K 4.3 mEq/L 3.5-5.1 Final [facility] e mEq/L Hospital (Lab): 90 [facility] ? ? P Normal Cl 104 mEq/L 98-107 Final [facility] mEq/L Hospital (Lab): 90 [facility] ? ? P Normal Co2 28 mEq/L 21-32 mEq/L Final [facility] Hospital (Lab): 90 [facility] ? ? P ? Agap 13.9 ? Final [facility] calculation Hospi lilia (Lab): 90 [facility] ? ? P Normal Glu 96.0 mg/dL 70.0-100.0 Final [facility] mg/dL Hospital (Lab): 90 [facility] ? ? P Normal Bun 14 mg/dL 7-18 mg/dL Final [facility] (Lab): 90 [facility] ? ? P Normal Creat 1.17 mg/dL 0.70-1.30 Final [facility] mg/dL Hospital (Lab): [address] [place] [address] ? ? P ? Bn/cr 12.1 ratio ? Final [facility] (Lab): [address] [place] [address] ? ? P Normal Ca 8.8 mg/dL 8.5-10.1 Final [facility] ge mg/dL Hospital (Lab): [address] [place] [address] ? ? P Normal Alkp 75 U/L 39-100 U/L Final [facility] (Lab): [address] [place] [address] ? ? P Normal Alt 35 U/L 16-63 U/L Final [facility] (Lab): [address] [place] [address] ? ? P Normal Ast 17 U/L 15-37 U/L Final [facility] (Lab): [address] [place] [address] ? ? P Normal Tbil 0.8 mg/dL <=1.2 mg/dL Final [facility] (Lab[facility] [address] [place] [address] ? ? P Normal Tp 7.3 g/dL 6.4-8.2 Final [facility] g/dL Hospital (Lab): [address] [place] [address] ? ? P Normal Alb 3.9 g/dL 3.4-5.0 Final [facility] g/dL Hospital (Lab): [address] [place] [address] ? ? P ? Glob 3.37 mg/dL ? Final [facility] Hospital (Lab): [address] [place] [address] ? ? P ? A/g 1.2 calc ? Final [facility] (Lab): [address] [place] [address] ? ? P ? Egfra 79.98 ? Final [facility] a Hospital (Lab): [address] [place] [address] ? ? P ? Egfrn 65.99 ? Final [facility] aa Hospital (Lab): [address] [place] [address] 03/07/2019 Vitamin P Normal Vitd 35.20 NG/mL >30.00 Final [facility] D2, NG/mL Hospital 25-Hydroxy (Lab): 90 , Serum [facility] 03/07/2019 Lipid P High Chol 201 mg/dL <200 mg/dL Final [facility] Panel W/ Hospital Direct (Lab): 90 LDL, Serum [facility] ? ? P Low Hdl 38 mg/dL 40-60 mg/dL Final [facility] Hospital (Lab): 90 [facility] ? ? P Normal Trig 104 mg/dL 30-150 Final [facility] mg/dL Hospital (Lab): 90 [facility] ? ? P High LDL(C 142 calc <100 calc Final [facility] Hospital (Lab): 90 [facility] ? ? P ? Risk 5.3 calc ? Final [facility] (Lab): 90 [facility] 03/07/2019 HbA1C WB Normal A1C 6.1 % 4.5-6.2 % Final [facility] (Hemoglobi Hospit al n a1C), (Lab): 90 Blood [facility] ? ? WB ? Eag 128 calc ? Final [facility] Hospital (Lab): 90 [facility] 01/30/2019 H Pylori Normal H. negative negative Final [facility] Ag, [facility] Immunoassa Stool (Lab): 90 y, Stool Ag, [facility] 01/28/2019 Urinalysis U Normal Color yellow yellow Final [facility] Dipstick, (Lab): 90 Reflex [facility] ? ? U Normal Raji clear clear Final [facility] (Lab): 90 [facility] ? ? U Normal Spgr 1.025 1.015-1.025 Final [facility] (Lab): 90 [facility] ? ? U ? Ph 6.0 ? Final [facility] (Lab): 90 [facility] ? ? U Normal Gluc negative negative Final [facility] (Lab): 90 [facility] ? ? U Normal Bilb negative negative Final [facility] (Lab): 90 [facility] ? ? U Normal Ket negative negative Final [facility] (Lab): 90 [facility] ? ? U Normal Bld negative negative Final [facility] (Lab): [address] [place] [address] ? ? U Normal Prot negative negative Final [facility] (Lab): [address] [place] [address] ? ? U ABNORMAL Uro 1.0 E.U./dL 0.2 E.U./dL Final [facility] (Lab): [address] [place] [address] ? ? U Normal Nit negative negative Final [facility] (Lab): [address] [place] [address] ? ? U Normal Leuko negative negative Final [facility] (Lab): [address] [place] [address] 01/28/2019 CMP, Serum P Normal Na 142 mEq/L 136-145 Final [facility] or Plasma mEq/L Hospita l (Lab): [address] [place] [address] ? ? P Normal K 4.0 mEq/L 3.5-5.1 Final [facility] mEq/L Hospital (Lab): [address] [place] [address] ? ? P Normal Cl 105 mEq/L 98-107 Final [facility] mEq/L Hospital (Lab): [address] [place] [address] ? ? P Normal Co2 24 mEq/L 21-32 mEq/L Final [facility] Hospital (Lab): [address] [place] [address] ? ? P ? Agap 17.1 ? Correcte [facility] calculation d Hospi lilia (Lab): [address] [place] [address] ? ? P High Glu 116.0 mg/dL 70.0-100.0 Final [facility] mg/dL Hospital (Lab): [address] [place] [address] ? ? P Normal Bun 16 mg/dL 7-18 mg/dL Final [facility] (Lab): [address] [place] [address] ? ? P Normal Creat 1.15 mg/dL 0.70-1.30 Final [facility] mg/dL Hospital (Lab): [address] [place] [address] ? ? P ? Bn/cr 13.5 ratio ? Final [facility] (Lab): [address] [place] [address] ? ? P Normal Ca 8.9 mg/dL 8.5-10.1 Final [facility] ge mg/dL Hospital (Lab): [address] [place] [address] ? ? P Normal Alkp 89 U/L 39-100 U/L Final [facility] (Lab): [address] [place] [address] ? ? P Normal Alt 32 U/L 16-63 U/L Final [facility] (Lab): [address] [place] [address] ? ? P Normal Ast 25 U/L 15-37 U/L Final [facility] (Lab): [address] [place] [address] ? ? P Normal Tbil 0.5 mg/dL <=1.2 mg/dL Final [facility] (Lab): [address] [place] [address] ? ? P Normal Tp 7.2 g/dL 6.4-8.2 Final [facility] g/dL Hospital (Lab): [address] [place] [address] ? ? P Normal Alb 3.8 g/dL 3.4-5.0 Final [facility] g/dL Hospital (Lab): [address] [place] [address] ? ? P ? Glob 3.45 mg/dL ? Final [facility] (Lab): [address] [place] [address] ? ? P ? A/g 1.1 calc ? Final [facility] (Lab): [address] [place] [address] ? ? P ? Egfra 81.58 ? Final [facility] Hospital (Lab): [address] [place] [address] ? ? P ? Egfrn 67.31 ? Final [facility] (Lab): [address] [place] [address] 01/28/2019 CBC W/ WB Normal Wbc 9.2 4.8-10.8 Final [facility] Auto Diff 10^3/mm^3 10^3/mm^3 H ospital (Lab): [address] [place] [address] ? ? WB High Rbc 5.98 4.20-5.90 Final [facility] 10^6/mm^3 10^6/mm^3 Hosp ital (Lab): [address] [place] [address] ? ? WB Normal Hgb 15.0 g/dL 13.5-17.5 Final [facility] g/dL Hospital (Lab): [address] [place] [address] ? ? WB Normal Hct 45 % 40-50 % Final [facility] (Lab): [address] [place] [address] ? ? WB Low Mcv 74.4 fL 80.0-97.0 Final [facility] (Lab): [facility] ? ? WB Low Mch 25.1 pg 33.0-36.0 Final [facility] Hospital (Lab): [facility] ? ? WB Normal Mchc 34 g/dL 33-36 g/dL Final [facility] (Lab): [facility] ? ? WB Normal Rdw 14.3 % 11.6-14.8 % Final [facility] (Lab): [facility] ? ? WB Normal Plate 283 150-400 Final [facility] lets 10^3/mm^3 10^3/mm^3 Hosp ital (Lab): [facility] ? ? WB Normal Ne# 4.79 1.20-6.70 Final [facility] 10^3/mm^3 10^3/mm^3 Hosp ital (Lab): [facility] ? ? WB Normal Ly# 3.39 1.20-3.40 Final [facility] 10^3/mm^3 10^3/mm^3 Hosp ital (Lab): [facility] ? ? WB High Mo# 0.80 0.11-0.70 Final [facility] 10^3/mm^3 10^3/mm^3 Hosp ital (Lab): [facility] ? ? WB Normal Eo# 0.16 0.00-0.70 Final [facility] 10^3/mm^3 10^3/mm^3 Hosp ital (Lab): [facility] ? ? WB Normal Ba# 0.03 0.00-0.20 Final [facility] 10^3/mm^3 10^3/mm^3 Hosp ital (Lab): [facility] ? ? WB Normal Neut% 52 % per 100 40-74 % per Final [facility] WBC 100 WBC Hospital (Lab): [facility] ? ? WB Normal Ly% 37 % per 100 19-48 % per Final [facility] WBC 100 WBC Hospital (Lab): [facility] ? ? WB Normal Mo% 8.7 % per 3.0-10.0 % Final [facility] 100 WBC per 100 WBC Hosp ital (Lab): [address] [place] [address] ? ? WB Normal Eo% 1.7 % per 1.0-7.0 % Final [facility] age 100 WBC per 100 WBC Hosp ital (Lab): [facility] ? ? WB Normal Ba% 0.3 % per 0.0-2.0 % Final [facility] age 100 WBC per 100 WBC Hosp ital (Lab): [address] [place] [address] ? ? WB ? Morph yes ? Final [facility] Hospital (Lab): [address] [place] [address] 01/28/2019 RBC WB ? Micro 2+ ? Final [facility] Morphology cytosi Hospit al , Blood s (Lab): [address] [place] [address] 11/22/2018 CBC W/ WB Normal Wbc 7.6 4.8-10.8 Final [facility] Auto Diff 10^3/mm^3 10^3/mm^3 H ospital (Lab): [address] [place] [address] ? ? WB High Rbc 6.22 4.20-5.90 Final [facility] 10^6/mm^3 10^6/mm^3 Hosp ital (Lab): [address] [place] [address] ? ? WB Normal Hgb 15.2 g/dL 13.5-17.5 Final [facility] age g/dL Hospital (Lab): [address] [place] [address] ? ? WB Normal Hct 47 % 40-50 % Final [facility] (Lab): [address] [place] [address] ? ? WB Low Mcv 74.8 fL 80.0-97.0 Final [facility] (Lab): [address] [place] [address] ? ? WB Low Mch 24.4 pg 33.0-36.0 Final [facility] Hospital (Lab): [address] [place] [address] ? ? WB Normal Mchc 33 g/dL 33-36 g/dL Final [facility] (Lab): [address] [place] [address] ? ? WB High Rdw 16.2 % 11.6-14.8 % Final [facility] (Lab): [address] [place] [address] ? ? WB Normal Plt 287 150-400 Final [facility] 10^3/mm^3 10^3/mm^3 Hosp ital (Lab): 90 [facility] ? ? WB Normal Ne# 3.98 1.20-6.70 Final [facility] 10^3/mm^3 10^3/mm^3 Hosp ital (Lab): 90 [facility] ? ? WB Normal Ly# 2.84 1.20-3.40 Final [facility] 10^3/mm^3 10^3/mm^3 Hosp ital (Lab): [facility] ? ? WB Normal Mo# 0.54 0.11-0.70 Final [facility] 10^3/mm^3 10^3/mm^3 Hosp ital (Lab): [facility] ? ? WB Normal Eo# 0.21 0.00-0.70 Final [facility] 10^3/mm^3 10^3/mm^3 Hosp ital (Lab): [facility] ? ? WB Normal Ba# 0.02 0.00-0.20 Final [facility] 10^3/mm^3 10^3/mm^3 Hosp ital (Lab): [facility] ? ? WB Normal Ne% 52 % per 100 40-74 % per Final [facility] WBC 100 WBC Hospital (Lab): [address] [place] [address] ? ? WB Normal Ly% 37 % per 100 19-48 % per Final [facility] WBC 100 WBC Hospital (Lab): [facility] ? ? WB Normal Mo% 7.1 % per 3.0-10.0 % Final [facility] 100 WBC per 100 WBC Hosp ital (Lab): [facility] ? ? WB Normal Eo% 2.8 % per 1.0-7.0 % Final [facility] 100 WBC per 100 WBC Hosp ital (Lab): [address] [place] [address] ? ? WB Normal Ba% 0.3 % per 0.0-2.0 % Final [facility] 100 WBC per 100 WBC Hosp ital (Lab): [facility] ? ? WB ? Tst58 no ? Final [facility] Hospital (Lab): [address] [place] [address] 11/22/2018 TSH + Free P Normal Tsh 1.709 mIU/mL 0.340-3.74 0 Final [facility] T4, Serum mIU/mL Hospita l (Lab): 90 [facility] 11/22/2018 Lipid P High Chol 237 mg/dL <200 mg/dL Final [facility] Panel W/ Hospital Direct (Lab): 90 LDL, Serum [facility] ? ? P Normal Hdl 50 mg/dL 40-60 mg/dL Final [facility] Hospital (Lab): 90 [facility] ? ? P Normal Trig 85 mg/dL 30-150 Final [facility] mg/dL Hospital (Lab): 90 [facility] ? ? P High LDL(C 170 calc <100 calc Final [facility] Hospital (Lab): [address] [place] [address] ? ? P ? Risk 4.7 calc ? Final [facility] (Lab): [address] [place] [address] 11/22/2018 CMP, Serum P Normal Na 144 mEq/L 136-145 Final [facility] or Plasma mEq/L Hospita l (Lab): 90 [facility] ? ? P Normal K 4.6 mEq/L 3.5-5.1 Final [facility] mEq/L Hospital (Lab): [address] [place] [address] ? ? P Normal Cl 105 mEq/L 98-107 Final [facility] mEq/L Hospital (Lab): [address] [place] [address] ? ? P Normal Co2 29 mEq/L 21-32 mEq/L Final [facility] Hospital (Lab): [address] [place] [address] ? ? P ? Agap 24.8 ratio ? Final [facility] (Lab): 90 [facility] ? ? P High Glu 112.0 mg/dL 70.0-100.0 Final [facility] mg/dL Hospital (Lab): [address] [place] [address] ? ? P High Bun 20 mg/dL 7-18 mg/dL Final [facility] (Lab): [address] [place] [address] ? ? P Normal Creat 1.28 mg/dL 0.70-1.30 Final [facility] mg/dL Hospital (Lab): [address] [place] [address] ? ? P ? Bn/cr 15.8 calc ? Final [facility] (Lab): 90 [facility] ? ? P Normal Ca 9.4 mg/dL 8.5-10.1 Final [facility] ge mg/dL Hospital (Lab): 90 [facility] ? ? P Normal Alkp 96 U/L 39-100 U/L Final [facility] (Lab): 90 [facility] ? ? P Normal Alt 39 U/L 16-63 U/L Final [facility] (Lab): 90 [facility] ? ? P Normal Ast 15 U/L 15-37 U/L Final [facility] (Lab): [address] [place] [address] ? ? P Normal Tbil 0.4 mg/dL <=1.2 mg/dL Final [facility] Hospital (Lab): 90 [facility] ? ? P Normal Tp 7.2 g/dL 6.4-8.2 Final [facility] g/dL Hospital (Lab): [address] [place] [address] ? ? P Normal Alb 3.9 g/dL 3.4-5.0 Final [facility] g/dL Hospital (Lab): [address] [place] [address] ? ? P ? Glob 3.28 mg/dL ? Final [facility] (Lab): [address] [place] [address] ? ? P ? A/g 1.2 calc ? Final [facility] (Lab): [address] [place] [address] ? ? P ? Egfra 72.10 ? Final [facility] a Hospital (Lab): [address] [place] [address] ? ? P ? Egfrn 59.49 ? [facility] Hospital (Lab): 90 [facility] 11/22/2018 Vitamin P Low Vitd 18.00 NG/mL >30.00 Final [facility] D2, NG/mL Hospital 25-Hydroxy (Lab): 90 , Serum [facility] r [facility] 11/22/2018 Erythrocyt WB Normal Esr 2.00 mm/HR 0.00-15.00 F inal [facility] e mm/HR Hospital Sedimentat (Lab): 90 [facility] N[facility] ille Method 11/22/2018 HbA1C WB High A1C 6.4 % 4.5-6.2 % Final [facility] (Hemoglobi Hospit al n a1C), (Lab): 90 Blood [facility] ? ? WB ? Eag 137 calc ? Final [facility] (Lab): 90 [facility] 07/24/2018 Urinalysis ? Appea Clear ? ? Rh c - , Dipstick sunshine [employer] al Medicine: 103 [facility] ? ? ? Gluco negative ? ? Rhc - se Internal Medicine: 103 [facility] ? ? ? Bilir negative ? ? Rhc - ubin Internal Medicine: 103 [facility] ? ? ? Keton negative ? ? Rhc - es Internal Medicine: 103 [facility] ? ? ? Speci 1.015 ? ? Rhc - fic Internal Gravit Medicine: y 103 [facility] ? ? ? Blood negative ? ? Rhc - Internal Medicine: [address] [place] [address] ? ? ? Ph 5.0 ? ? Rhc - Internal Medicine: 103 [facility] ? ? ? Prote negative ? ? Rhc - in Internal Medicine: 103 [facility] ? ? ? Urobi normal ? ? Rhc - lirubi Internal n Medicine: 103 [facility] ? ? ? Nitra negative ? ? Rhc - kathe Internal Medicine: 103 [facility] ? ? ? Leuko negative ? ? Rhc - cytes Internal Medicine: [address] [place] [address] 02/27/2018 Glucose ? Hemog 15.1 g/dL 13.0-17.7 Final [facility] 6-Phosphat lobin g/dL Hospit al e (Lab): 90 Dehydrogen [facility] [place] [facility], ([id number]), [facility] e Quantitati ve, RBC ? ? ? g-6-P 9.6 U/g Hb 4.6-13.5 Final [facility] d, U/g Hb Hospital Quant (Lab): [address] [place] [address] 02/27/2018 CMP, Serum ? Sodiu 141 mEq/L 136-145 Final [facility] or Plasma m mEq/L Hospita l (Lab): 90 [facility] ? ? ? Potas 4.3 mEq/L 3.5-5.1 Final [facility] sium mEq/L Hospital (Lab): [facility] ? ? ? Chlor 103 mEq/L 98-107 Final [facility] ahmet mEq/L Hospital (Lab): [facility] ? ? ? Carbo 27 mEq/L 21-32 mEq/L Final [facility] Hospital Dioxid (Lab): 90 e [facility] ? ? ? Anion 15 ratio ? Final [facility] (Lab): [facility] ? ? ? Calci 9.5 mg/dL 8.5-10.1 Final [facility] um mg/dL Hospital (Lab): [facility] ? ? ? Gluco 103 mg/dL 74-106 Final [facility] se mg/dL Hospital (Lab): [facility] ? ? High Bun 19 mg/dL 7-18 mg/dL Final [facility] (Lab): [facility] ? ? ? Creat 1.18 mg/dL 0.70-1.30 Final [facility] inine mg/dL Hospital (Lab): [facility] ? ? ? BUN/c 16.1 calc 12.0-20.0 Final [facility] reat calc Hospital Ratio (Lab): [facility] ? ? ? GFR >60 >=60 Final [facility] Caucas mL/min/1.73 mL/min/1.73 Hospital barrie m2 m2 (Lab): [facility] ? ? ? GFR >60 >=60 Final [facility] Lara mL/min/1.73 mL/min/1.73 Hospital n m2 m2 (Lab): [address] [facility] ? ? ? Total 7.5 g/dL 6.4-8.2 Final [facility] Protei g/dL Hospital n (Lab): [facility] ? ? ? Album 4.0 g/dL 3.4-5.0 Final [facility] in g/dL Hospital (Lab): [facility] ? ? ? Globu 3.5 g/dL ? Final [facility] ai Hospital (Lab): [address] [place] [address] ? ? ? A/g 1.1 calc 1.1-1.8 Final [facility] Ratio calc Hospital (Lab): [address] [place] [address] ? ? ? ALT(S 45 U/L 16-63 U/L Final [facility] GPT) Hospital (Lab): [address] [place] [address] ? ? ? Ast 21 U/L 15-37 U/L Final [facility] ([facility]) Hospital (Lab): [address] [place] [address] ? ? ? Alk. 110 U/L 45-115 U/L Final [facility] Hospital atase (Lab): [address] [place] [address] ? ? ? Total 0.4 mg/dL 0.1-1.2 Final [facility] e Biliru mg/dL Hospital bin (Lab): [address] [place] [address] 02/27/2018 CBC W/ ? Wbc 5.0 x10^3/uL 4.8-10.8 Final [facility] Auto Diff x10^3/uL Hospi lilia (Lab): [address] [place] [address] ? ? High Rbc 6.15 4.20-5.90 Final [facility] x10^6/uL x10^6/uL Hospit al (Lab): [address] [place] [address] ? ? ? Hgb 15.3 g/dL 13.5-17.5 Final [facility] age g/dL Hospital (Lab): [address] [place] [address] ? ? ? Hct 44.8 % 40.0-50.0 % Final [facility] (Lab): [address] [place] [address] ? ? Low Mcv 72.8 fL 80.0-97.0 Final [facility] fL [facility] (Lab): [address] [place] [address] ? ? Low Mch 24.9 pg 33.0-36.0 Final [facility] e pg Hospital (Lab): [address] [place] [address] ? ? ? Mchc 34.2 g/dL 33.0-36.0 Final [facility] age g/dL Hospital (Lab): [address] [place] [address] ? ? High RDW-C 15.1 % 11.6-14.8 % Final [facility] (Lab[facility] 90 [facility] ? ? ? Plt 252 x10^3/uL 150-400 Final [facility] x10^3/uL Hospital (Lab): 90 [facility] ? ? ? Neut 52.9 % 40.0-74.0 % Final [facility] Hospital (Lab): [facility] ? ? ? Lymph 34.5 % 19.0-48.0 % Final [facility] Hospital (Lab): 90 [facility] ? ? ? Bates% 7 % 3-10 % Final [facility] (Lab): [address] [place] [address] ? ? ? Eos% 5 % 1-7 % Final [facility] (Lab): [address] [place] [address] ? ? ? Baso% 0 % 0-2 % Final [facility] Hospital (Lab): [facility] ? ? ? Neut 2.63 1.00-7.00 Final [facility] # x10^3/uL x10^3/uL Hospit al (Lab): [facility] ? ? ? Lymph 1.72 1.20-3.40 Final [facility] # x10^3/uL x10^3/uL Hospit al (Lab): 90 [facility] ? ? ? Bates# 0.35 0.10-0.70 Final [facility] x10^3/uL x10^3/uL Hospit al (Lab): [facility] ? ? ? Eos # 0.26 0.00-0.70 Final [facility] x10^3/uL x10^3/uL Hospit al (Lab): 90 [facility] ? ? ? Baso 0.0 x10^3/uL 0.0-0.2 Final [facility] # x10^3/uL Hospital (Lab): 90 [facility] 12/27/2017 HBsAg ? Hepat negative ? Final [facility] (Hepatitis itis B Hospit al B Surface Surfac (Lab): 90 Ag), EIA, e [facility] Serum Antige [facility] 12/27/2017 Erythrocyt ? Sed 2 mm/HR 0-15 mm/HR [facility] Rate Hospital Sedimentat (Lab): 90 [facility], [place] Method 12/27/2017 Urinalysis Urine ? Color yellow ? Final [facility] Dipstick, (Lab): 90 Reflex [facility] ? ? Urine ? Appea clear clear Final [facility] Hospital (Lab): 90 [facility] ? ? Urine ? Speci 1.025 ? Final [facility] Gravit (Lab): 90 y [facility] ? ? Urine ? Ph 5.0 ? Final [facility] Hospital (Lab): [address] [place] [address] ? ? Urine ? Gluco negative negative Final [facility] e se Hospital (Lab): [address] [place] [address] ? ? Urine ? Bilir negative negative Final [facility] e ubin Hospital (Lab): [address] [place] [address] ? ? Urine ? Keton negative negative Final [facility] e e Hospital (Lab): 90 [facility] ? ? Urine ? Blood negative negative Final [facility] e Hospital (Lab): [address] [place] [address] ? ? Urine ? Prote negative negative Final [facility] e in Hospital (Lab): [address] [place] [address] ? ? Urine ? Urobi 0.2 E.U./dL ? Final [facility] n (Lab): 90 [facility] ? ? Urine ? Nitri negative negative Final [facility] (Lab[facility] 90 [facility] ? ? Urine ? Leuko negative negative Final [facility] e cyte Hospital Estera (Lab): 90 se [facility] 12/27/2017 TSH, Serum ? Tsh 1.92 mIU/mL 0.36-3.74 F inal [facility] or Plasma mIU/mL Hospita l (Lab): [address] [place] [address] 12/27/2017 C Reactive Low C-vijaya <0.2 mg/dL 0.0-0.9 Fa[facility]ina l [facility] Protein, ctive mg/dL Hospital QN, Serum Protei (Lab): 90 or Plasma n [facility] 12/16/2017 Urinalysis Urine ? Appea Clear ? ? Rh c - , Dipstick sunshine [employer] al Medicine: 103 [facility] ? ? Urine ? Gluco negative ? ? Rhc - se Internal Medicine: 103 [facility] ? ? Urine ? Bilir negative ? ? Rhc - ubin Internal Medicine: 103 [facility] ? ? Urine ? Keton negative ? ? Rhc - es Internal Medicine: 103 [facility] ? ? Urine ? Speci 1.015 ? ? Rhc - fic Internal Gravit Medicine: y 103 [facility] ? ? Urine ? Blood negative ? ? c - Internal Medicine: [address] [place] [address] ? ? Urine ? Ph 6.0 ? ? Rhc - Internal Medicine: 103 [facility] ? ? Urine ? Prote negative ? ? Rhc - in Internal Medicine: [address] [place] [address] ? ? Urine ? Urobi normal ? ? Rh - lirubi Internal n Medicine: [address] [place] [address] ? ? Urine ? Nitra negative ? ? Rh - kathe Internal Medicine: [address] [place] [address] ? ? Urine ? Leuko negative ? ? [facility] - cytes Internal Medicine: [address] [place] [address] 09/30/2017 ABIOLA ? Antin negative negat Final *DO Not (Antinucle uclear Use* C h ar Antibo Lab: 90 Antibodies dy, [place] ) Screen, [address], [place], Serum [facility] ille 09/21/2017 Urinalysis ? Color yellow ? Final *D O Not , Use* Dipstick, Lab: 90 Reflex [facility] ? ? ? Lizzette clear ? Final *DO Not ty Use* Lab: 90 [facility] ? ? ? Sp 1.015 1.015-1.025 Final *DO N ot Grav Use* Lab: 90 [facility] ? ? ? Ph 7.0 4.6-8.0 Final *DO Not Use* Lab: 90 [facility] ? ? ? Prote negative negative Final *DO No t in Use* Lab: 90 [facility] ? ? ? Gluco negative negative Final *DO No t se Use* Ch Lab: 90 [facility] ? ? ? Keton negative negative Final *DO No t es Use* Ch Lab: 90 [facility] ? ? ? Bile negative negative Final *DO No t Use* Ch Lab: 90 [facility] ? ? ? Blood negative negative Final *DO No t Use* Ch Lab: 90 [facility] ? ? ? Nitri negative negative Final *DO No t te Use* Ch Lab: 90 [facility] ? ? ? Urobi 0.2 mg/dL 0-1.0 mg/dL Final *D O Not ai Use* Ch Lab: 90 [facility] ? ? ? Leuk negative ? Final *DO Not Est negative Use* Lab: 90 [facility] 09/21/2017 Hemoglobin ? Hemog 6.1 % 4.5-6.2 % Final *DO Not a1C, QN, lobin Use* Blood a1C Lab: 90 [facility] ? ? High Meang 128 mg/dL 54-115 Final *DO Not jessica mg/dL Use* Lab: 90 [facility] 09/21/2017 Cbc ? White 7.5 10 4.8-10.8 10 Final * DO Not Blood Use* Count Lab: 90 [facility] ? ? ? Rbc 5.66 10 4.20-5.90 Final *DO No t 10 Use* Ch Lab: [address] [place] [address] ? ? ? Hgb 14.0 g/dL 13.5-17.5 Final *DO Not g/dL Use* Ch Lab: 90 [facility] ? ? ? Hct 41.6 % 40-50 % Final *DO Not Use* Ch Lab: 90 [facility] ? ? Low Mcv 73.5 fL 80-97 fL Final *DO Not Use* Ch Lab: 90 [facility] ? ? Low Mch 24.7 pg 27-32 pg Final *DO Not Use* Ch Lab: 90 [facility] ? ? ? Mchc 33.7 g/dL 33-36 g/dL Final *DO Not Use* Ch Lab: 90 [facility] ? ? ? Rdw 14.7 % 11.6-14.8 % Final *DO N ot Use* Ch Lab: 90 [facility] ? ? ? Plt 280 10 150-400 10 Final *DO No t Use* Ch Lab: 90 [facility] ? ? ? Neut 60.8 % 40-74 % Final *DO Not % Use* Ch Lab: 90 [facility] ? ? ? Lymph 27.5 % 19-48 % Final *DO Not % Use* Ch Lab: 90 [facility] ? ? ? Bates 6.0 % 3.0-10.0 % Final *DO No t % Use* Ch Lab: 90 [facility] ? ? ? Eosin 5.4 % 1.0-7.0 % Final *DO Not % Use* Ch Lab: Sunni [facility] ? ? ? Baso 0.3 % 0-2.0 % Final *DO Not % Use* Ch Lab: 90 [facility] ? ? ? Neut 4.5 1.2-6.7 Final *DO Not Abs Use* Ch Lab: 90 [facility] ? ? ? Lymph 2.05 1.2-3.4 Final *DO Not Ab Use* Ch Lab: 90 [facility] ? ? ? Bates 0.45 0.11-0.7 Final *DO Not Abs Use* Ch Lab: 90 [facility] ? ? ? Eos 0.40 0-0.7 Final *DO Not Abs Use* Ch Lab: 90 [facility] ? ? ? Baso 0.02 0-0.2 Final *DO Not Abs Use* Ch Lab: 90 [facility] ? ? ? Plt adequate adequate Final *DO No t Est Use* Ch Lab: 90 [facility] ? ? ? Rbcmo abnormal ? Final *DO Not rph Use* Ch Lab: 90 [facility] ? ? ? Aniso slight ? Final *DO Not Use* Ch Lab: 90 [facility] ? ? ABNORMAL Micro moderate ? Final *DO No t Use* Lab: 90 [facility] 09/21/2017 ESR ? Sedim 7 mm/HR 0-15 mm/HR Final * DO Not (Erythrocy entati Use* C h te on Lab: 90 Sediment[address] Rate [place] Rate), Rd, Blood [place] 09/21/2017 Unlisted Low Iron 54 ug/dL 65-175 Final *D O Not Lab ug/dL Use* Lab: 90 [facility] ? ? ? Tibc 350 ug/dL 250-400 Final *DO No t ug/dL Use* Lab: 90 [facility] ? ? Low % Sat 15.4 % 20-50 % Final *DO Not Use* Lab: 90 [facility] 09/21/2017 CMP, Serum High Gluco 163 mg/dL 74-106 Final *DO Not or Plasma se mg/dL Use* Lab: [facility] ? ? ? Urea 16 mg/dL 7-18 mg/dL Final *DO Not Nitrog Use* en Lab: 90 [facility] ? ? ? Creat 1.2 mg/dL 0.70-1.3 Final *DO N ot inine mg/dL Use* Lab: [facility] ? ? ? Sodiu 139.3 mmol/L 136-145 Final *DO Not m mmol/L Use* Lab: [facility] ? ? ? Potas 4.2 mmol/L 3.5-5.1 Final *DO N ot sium mmol/L Use* Lab: 90 [facility] ? ? ? Chlor 103 mmol/l 98-107 Final *DO No t ahmet mmol/l Use* Ch Lab: [facility] ? ? ? Carbo 25 mmol/l 21-32 Final *DO Not n mmol/l Use* Dioxid Lab: 90 e [facility] ? ? ? Calci 9.1 mg/dL 8.5-10.1 Final *DO N ot um mg/dL Use* Lab: 90 [facility] ? ? ? Anion 15 ? Final *DO Not Gap Use* Ch Lab: 90 [facility] ? ? ? BUN/c 12.9 12-20 Final *DO Not vijaya Use* Ch Lab: 90 [facility] ? ? ? Glome >60 ? Final *DO Not rular mL/min/1.73M Use* Ch Filtra 2 Lab: 90 tion [facility] ? ? ? SGOT/ 26 U/L 15-37 U/L Final *DO Not AST Use* Ch Lab: 90 [facility] ? ? ? SGPT/ 49 U/L 16-63 U/L Final *DO Not ALT Use* Ch Lab: 90 [facility] ? ? ? Alkal 101 U/L 46-116 U/L Final *DO N ot ine Use* Ch Phosph Lab: 90 atase [facility] ? ? ? T. 0.4 mg/dL 0.2-1.0 Final *DO No t Bili mg/dL Use* Ch Lab: 90 [facility] ? ? ? Alb 4.00 g/dL 3.4-5.0 Final *DO No t g/dL Use* Ch Lab: 90 [facility] ? ? ? Total 7.2 g/dL 6.4-8.2 Final *DO Not Protei g/dL Use* Ch n Lab: 90 [facility] ? ? ? A/g 1.3 1.1-1.8 Final *DO Not Rat Use* Ch Lab: 90 [facility] 09/21/2017 Lipid High Sol 210 mg/dL -200 mg/dL Final *DO Not Panel, sterol Use* Ch Serum Lab: 90 [facility] ? ? ? HDL 45 mg/dL 40-60 mg/dL Final *DO Not Chol Use* Ch Lab: 90 [facility] ? ? ? Trigl 140 mg/dL 30-150 Final *DO Not ycerid mg/dL Use* Ch es Lab: 90 [facility] ? ? High LDL 137 mg/dL -130 mg/dL Final *DO Not Calcul Use* Ch ated Lab: 90 [facility] ? ? ? Risk 5 ? Final *DO Not Use* Ch Lab: 90 [facility] 09/21/2017 TSH, Serum ? TSH 1.52 mciu/mL 0.36-3.74 Final *DO Not or Plasma W/refl mciu/mL Use* C h ex Lab: [address] [place] [address] 09/21/2017 C Reactive ? C-vijaya <0.2 mg/dL <0.2-0.9 Fin al *DO Not Protein, ctive mg/dL Use* Ch QN, Serum Protie Lab: 90 or Plasma n [facility] (CRP) [facility] 09/21/2017 Ferritin, ? Jona [phone] Final *DO Not Serum or tin Use* Plasma Lab: [address] [place] [address] 09/21/2017 Folate, ? Folat 17.8 NG/mL 8.6-58.9 Final *DO Not Serum e NG/mL Use* Lab: [address] [place] [address] 09/21/2017 Lead, ? Lead <2 ug/dL 0-4 ug/dL Final * DO Not Blood Use* Ch Lab: [address] [place] [address] 09/21/2017 Lyme ? Lyme negative ? Final *DO Not Disease Antibo Use* Igg+igm dy Lab: 90 Ab, Serum [facility] 09/21/2017 Rf ? Rheum <20 IU/mL -<20 IU/mL Final *DO Not (Rheumatoi atoid Use* C h d Factor), Factor Lab: 9 0 Serum [facility] 09/21/2017 [id number] ? Inter see comments ? Final *DO Not Genotype, pretat Use* Blood ion Lab: [address] [place] [address] ? ? ? [id number] negative not Final *DO Not 27 applicable Use* C h Result Lab: [address] [place] [address] 06/18/2017 HbA1C ? Hemog 6.0 % 4.5-6.2 % Final *DO Not (Hemoglobi lobin Use* C h n a1C), a1C Lab: 90 Blood [facility] ? ? High Meang 126 mg/dL 54-115 Final *DO Not jessica mg/dL Use* Ch Lab: 90 [facility] 06/18/2017 BMP, Serum ? Gluco 101 mg/dL 74-106 Final *DO Not or Plasma se mg/dL Use* Lab: 90 [facility] ? ? High Urea 21 mg/dL 7-18 mg/dL Final *DO Not Nitrog Use* en Lab: [facility] ? ? ? Creat 1.2 mg/dL 0.70-1.3 Final *DO N ot inine mg/dL Use* Lab: 90 [facility] ? ? ? Sodiu 143.4 mmol/L 136-145 Final *DO Not m mmol/L Use* Lab: [address] [place] [address] ? ? ? Potas 4.5 mmol/L 3.5-5.1 Final *DO N ot sium mmol/L Use* Lab: [address] [place] [address] ? ? ? Chlor 107 mmol/l 98-107 Final *DO No t ahmet mmol/l Use* Lab: 90 [facility] ? ? ? Carbo 28 mmol/l 21-32 Final *DO Not n mmol/l Use* Dioxid Lab: 90 e [facility] ? ? ? Calci 9.5 mg/dL 8.5-10.1 Final *DO N ot um mg/dL Use* Lab: [address] [place] [address] ? ? ? Anion 13 ? Final *DO Not Gap Use* Lab: [address] [place] [address] ? ? ? BUN/c 17.5 12-20 Final *DO Not vijaya Use* Lab: 90 [facility] ? ? ? Glome >60 ? Final *DO Not rular mL/min/1.73M Use* Filtra 2 Lab: 90 tion [facility] 06/18/2017 Glucose ? Gluco 101 mg/dL 74-106 Correcte *DO Not Tolerance se mg/dL d Use* Test, Lab: 90 2-Hour [facility] ? ? ? 2HR 103 <140 mg/dL Final *DO No t Gluc Use* Lab: 90 [facility] 06/18/2017 Fructosami ? Fruct 260 mcmol/L 200-285 Fin al *DO Not ne, Serum osamin mcmol/L Use* C h e, Lab: 90 Serume Carl [id number] , [place] 05/28/2017 TSH, Serum ? TSH 1.02 mciu/mL 0.36-3.74 Final *DO Not or Plasma W/refl mciu/mL Use* C h ex Lab: 90 [facility] 05/28/2017 Lyme ? Lyme negative ? Final *DO Not Disease Antibo Use* Ch Igg+igm dy Lab: 90 Ab, [facility] 05/10/2017 ESR ? Sedim 7 mm/HR 0-15 mm/HR Final * DO Not (Erythrocy entati Use* C h te on Lab: 90 [address] [place] Rate), Rd, Blood [place] 05/10/2017 CBC W/ ? White 7.9 10 4.8-10.8 10 Final * DO Not Manual Blood Use* Ch Diff Count Lab: 90 [facility] ? ? ? Rbc 5.82 10 4.20-5.90 Final *DO No t 10 Use* Ch Lab: 90 [facility] ? ? ? Hgb 14.5 g/dL 13.5-17.5 Final *DO Not g/dL Use* Ch Lab: 90 [facility] ? ? ? Hct 41.9 % 40-50 % Final *DO Not Use* Ch Lab: 90 [facility] ? ? Low Mcv 72.0 fL 80-97 fL Final *DO Not Use* Ch Lab: 90 [facility] ? ? Low Mch 24.9 pg 27-32 pg Final *DO Not Use* Ch Lab: 90 [facility] ? ? ? Mchc 34.6 g/dL 33-36 g/dL Final *DO Not Use* Ch Lab: 90 [facility] ? ? High Rdw 15.4 % 11.6-14.8 % Final *DO N ot Use* Ch Lab: 90 [facility] ? ? ? Plt 257 10 150-400 10 Final *DO No t Use* Ch Lab: 90 [facility] ? ? ? Neut 63 % 40-75 % Final *DO Not % Use* Ch Lab: [facility] ? ? ? Lymph 25 % 20-45 % Final *DO Not % Use* Ch Lab: [facility] ? ? ? Bates 5 % 2-10 % Final *DO Not % Use* Ch Lab: [facility] ? ? ? Eosin 4 % 1-6 % Final *DO Not % Use* Ch Lab: [facility] ? ? ? Plt adequate adequate Final *DO No t Est Use* Ch Lab: [facility] ? ? ? Rbcmo abnormal ? Final *DO Not rph Use* Ch Lab: [facility] ? ? ? Aniso few ? Final *DO Not Use* Ch Lab: [facility] ? ? ABNORMAL Micro moderate ? Final *DO No t Use* Ch Lab: [address] [place] [address] 05/10/2017 C Reactive ? C-vijaya 0.7 mg/dL <0.2-0.9 Faustina l *DO Not Protein, ctive mg/dL Use* QN, Serum Protie Lab: 90 or Plasma n [facility] (CRP) [facility] 05/10/2017 BMP, Serum High Gluco 110 mg/dL 74-106 Final *DO Not or Plasma se mg/dL Use* Ch Lab: [facility] ? ? High Urea 23 mg/dL 7-18 mg/dL Final *DO Not Nitrog Use* en Lab: [facility] ? ? ? Creat 1.3 mg/dL 0.70-1.3 Final *DO N ot inine mg/dL Use* Ch Lab: [facility] ? ? ? Sodiu 141.5 mmol/L 136-145 Final *DO Not m mmol/L Use* Ch Lab: [facility] ? ? ? Potas 3.9 mmol/L 3.5-5.1 Final *DO N ot sium mmol/L Use* Ch Lab: [facility] ? ? ? Chlor 103 mmol/l 98-107 Final *DO No t ahmet mmol/l Use* Ch Lab: 90 [facility] ? ? ? Carbo 26 mmol/l 21-32 Final *DO Not n mmol/l Use* Dioxid Lab: 90 e [facility] ? ? ? Calci 8.9 mg/dL 8.5-10.1 Final *DO N ot um mg/dL Use* Ch Lab: 90 [facility] ? ? ? Anion 17 ? Final *DO Not Gap Use* Ch Lab: 90 [facility] ? ? ? BUN/c 17.9 12-20 Final *DO Not vijaya Use* Ch Lab: 90 [facility] ? ? ? Glome >60 ? Final *DO Not rular mL/min/1.73M Use* Filtra 2 Lab: 90 tion [facility] 05/10/2017 D-dimer, ? D-dim 191 NG/mL 0-400 NG/mL Fin al *DO Not Quant, er Use* Plasma Lab: 90 [facility] 04/01/2017 Culture, UCC ? No ? ? ? *DO Not Urine observ Use* ation Lab: 90 [place] [facility] [place] + NG ? Speci urine ? Final *DO N ot DNA, PCR, men Use* Urine Descri Lab: 90 ption [facility] ? ? ? Ch-re negative ? Final *DO Not sult Use* Ch Lab: 90 [facility] ? ? ? GC-re negative ? Final *DO Not sult Use* Lab: 90 [facility] 04/01/2017 Culture, ? No ? ? ? *DO Not Urine + observ Use* Sensitivit ation Lab: 9 0 y record [facility] [place] 03[place]13/2017 Hepatic ? SGOT/ 23 U/L 15-37 U/L Final *D O Not Function AST Use* Panel, Lab: 90 Serum [facility] ? ? ? SGPT/ 44 U/L 16-63 U/L Final *DO Not ALT Use* Ch Lab: 90 [facility] ? ? ? Alkal 78 U/L 46-116 U/L Final *DO No t ine Use* Ch Phosph Lab: 90 atase [facility] ? ? ? T. 0.6 mg/dL 0.2-1.0 Final *DO No t Bili mg/dL Use* Ch Lab: 90 [facility] ? ? ? Direc 0.14 mg/dL 0.0-0.2 Final *DO N ot t mg/dL Use* Ch Biliru Lab: 90 bin [facility] ? ? ? Alb 3.78 g/dL 3.4-5.0 Final *DO No t g/dL Use* Ch Lab: 90 [facility] ? ? ? Total 6.8 g/dL 6.4-8.2 Final *DO Not Protei g/dL Use* Ch n Lab: 90 [facility] ? ? ? A/g 1.3 1.1-1.8 Final *DO Not Rat Use* Ch Lab: Sunni [facility] 09/05/2016 CBC W/ ? White 6.3 10 4.8-10.8 10 Final * DO Not Auto Diff Blood Use* Ch Count Lab: Sunni [facility] ? ? High Rbc 6.03 10 4.20-5.90 Final *DO No t 10 Use* Ch Lab: 90 [facility] ? ? ? Hgb 14.7 g/dL 13.5-17.5 Final *DO Not g/dL Use* Ch Lab: [address] [place] [address] ? ? ? Hct 44.1 % 40-50 % Final *DO Not Use* Ch Lab: 90 [facility] ? ? Low Mcv 73.1 fL 80-97 fL Final *DO Not Use* Ch Lab: Sunni [facility] ? ? Low Mch 24.4 pg 27-32 pg Final *DO Not Use* Ch Lab: 90 [facility] ? ? ? Mchc 33.3 g/dL 33-36 g/dL Final *DO Not Use* Ch Lab: [address] [place] [address] ? ? High Rdw 15.1 % 11.6-14.8 % Final *DO N ot Use* Ch Lab: 90 [facility] ? ? ? Plt 263 10 150-400 10 Final *DO No t Use* Ch Lab: 90 [facility] ? ? ? Neut 56.5 % 40-74 % Final *DO Not % Use* Ch Lab: 90 [facility] ? ? ? Lymph 29.6 % 19-48 % Final *DO Not % Use* Ch Lab: 90 [facility] ? ? ? Bates 9.7 % 3.0-10.0 % Final *DO No t % Use* Ch Lab: 90 [facility] ? ? ? Eosin 3.7 % 1.0-7.0 % Final *DO Not % Use* Ch Lab: 90 [facility] ? ? ? Baso 0.5 % 0-2.0 % Final *DO Not % Use* Ch Lab: 90 [facility] ? ? ? Neut 3.6 1.2-6.7 Final *DO Not Abs Use* Ch Lab: 90 [facility] ? ? ? Lymph 1.86 1.2-3.4 Final *DO Not Ab Use* Ch Lab: 90 [facility] ? ? ? Bates 0.61 0.11-0.7 Final *DO Not Abs Use* Ch Lab: 90 [facility] ? ? ? Eos 0.23 0-0.7 Final *DO Not Abs Use* Ch Lab: 90 [facility] ? ? ? Baso 0.03 0-0.2 Final *DO Not Abs Use* Ch Lab: 90 [facility] 09/05/2016 ESR ? Sedim 6 mm/HR 0-15 mm/HR Final * DO Not (Erythrocy entati Use* C h te on Lab: [facility], Blood [place] 09/05/2016 CMP, Serum ? Gluco 92 mg/dL 74-106 Final *DO Not or Plasma se mg/dL Use* Ch Lab: 90 [facility] ? ? High Urea 19 mg/dL 7-18 mg/dL Final *DO Not Nitrog Use* Ch en Lab: 90 [facility] ? ? ? Creat 1.2 mg/dL 0.70-1.3 Final *DO N ot inine mg/dL Use* Ch Lab: 90 [facility] ? ? ? Sodiu 143.5 mmol/L 136-145 Final *DO Not m mmol/L Use* Ch Lab: 90 [facility] ? ? ? Potas 4.2 mmol/L 3.5-5.1 Final *DO N ot sium mmol/L Use* Ch Lab: 90 [facility] ? ? ? Chlor 106 mmol/l 98-107 Final *DO No t ahmet mmol/l Use* Ch Lab: 90 [facility] ? ? ? Carbo 28 mmol/l 21-32 Final *DO Not n mmol/l Use* Ch Dioxid Lab: 90 e [facility] ? ? ? Calci 8.5 mg/dL 8.5-10.1 Final *DO N ot um mg/dL Use* Ch Lab: 90 [facility] ? ? ? Anion 14 ? Final *DO Not Gap Use* Ch Lab: 90 [facility] ? ? ? BUN/c 16.2 12-20 Final *DO Not vijaya Use* Ch Lab: 90 [facility] ? ? ? Glome >60 ? Final *DO Not rular mL/min/1.73M Use* Ch Filtra 2 Lab: 90 t[facility] ? ? ? SGOT/ 31 U/L 15-37 U/L Final *DO Not AST Use* Ch Lab: 90 [facility] ? ? High SGPT/ 83 U/L 16-63 U/L Final *DO Not ALT Use* Ch Lab: 90 [facility] ? ? ? Alkal 81 U/L 46-116 U/L Final *DO No t ine Use* Ch Phosph Lab: 90 atase [facility] ? ? ? T. 0.6 mg/dL 0.2-1.0 Final *DO No t Bili mg/dL Use* Ch Lab: 90 [facility] ? ? ? Alb 3.81 g/dL 3.4-5.0 Final *DO No t g/dL Use* Ch Lab: 90 [facility] ? ? ? Total 7.0 g/dL 6.4-8.2 Final *DO Not Protei g/dL Use* Ch n Lab: 90 [facility] ? ? ? A/g 1.2 1.1-1.8 Final *DO Not Rat Use* Ch Lab: 90 [facility] 09/05/2016 Lipid High Sol 209 mg/dL -200 mg/dL Final *DO Not Panel, sterol Use* Serum Lab: 90 [facility] ? ? ? HDL 46 mg/dL 40-60 mg/dL Final *DO Not Chol Use* Ch Lab: 90 [facility] ? ? ? Trigl 81 mg/dL 30-150 Final *DO Not ycerid mg/dL Use* Ch es Lab: 90 [facility] ? ? High LDL 147 mg/dL -130 mg/dL Final *DO Not Calcul Use* ated Lab: 90 [facility] ? ? ? Risk 5 ? Final *DO Not Use* Ch Lab: 90 [facility] 09/05/2016 CK High Creat 407 U/L 39-308 U/L Final * DO Not (Creatine ine Use* Kinase), Kinase Lab: 90 Total, [place] [facility] 09/05/2016 C Reactive ? C-vijaya 0.2 mg/dL <0.2-0.9 Faustina l *DO Not Protein, ctive mg/dL Use* QN, Serum Protie Lab: 90 or Plasma n [facility] ter (CRP) [facility] 09/05/2016 Bilirubin, ? Direc 0.18 mg/dL 0.0-0.2 Faustina l *DO Not Direct, t mg/dL Use* Serum or Biliru Lab: 90 Plasma bin [facility] 09/05/2016 Hepatitis ? Hepat positive ? Final * DO Not B Surface itis B Use* Ab, Surfac Lab: 90 Quantitati e Ab [place], Serum [facility] ? ? ? Hepat 189.0 mIU/mL ? Final *DO Not itis B Use* Ch Surfac Lab: 90 e [place] [address], ad[place]ano [place] 09/05/2016 Hepatitis ? Hbs negative negative Final *DO Not Panel Antige Use* Ch (A+B+C), n, S Lab: 90 Acute, [place] [facility] ? ? ? Hbc negative negative Final *DO No t IgM Use* Ch Ab, S Lab: 90 [facility] ? ? ? Hepat negative negative Final *DO No t itis a Use* Ch IgM Lab: 90 Ab, S [facility] ? ? ? HCV negative negative Final *DO No t Ab, S Use* Ch Lab: 90 [facility] 09/05/2016 Topiramate ? Topir <1.0 mcg/mL ? Faustina l *DO Not , Serum amate Use* Ch Lab: 90 [facility] 08/20/2016 CBC W/ ? White 6.0 10 4.8-10.8 10 Final * DO Not Auto Diff Blood Use* Ch Count Lab: 90 [facility] ? ? High Rbc 6.37 10 4.20-5.90 Final *DO No t 10 Use* Ch Lab: 90 [facility] ? ? ? Hgb 15.3 g/dL 13.5-17.5 Final *DO Not g/dL Use* Ch Lab: 90 [facility] ? ? ? Hct 46.8 % 40-50 % Final *DO Not Use* Ch Lab: 90 [facility] ? ? Low Mcv 73.5 fL 80-97 fL Final *DO Not Use* Ch Lab: 90 [facility] ? ? Low Mch 24.0 pg 27-32 pg Final *DO Not Use* Ch Lab: 90 [facility] ? ? Low Mchc 32.7 g/dL 33-36 g/dL Final *DO Not Use* Ch Lab: 90 [facility] ? ? High Rdw 15.1 % 11.6-14.8 % Final *DO N ot Use* Ch Lab: 90 [facility] ? ? ? Plt 272 10 150-400 10 Final *DO No t Use* Ch Lab: 90 [facility] ? ? ? Neut 53.8 % 40-74 % Final *DO Not % Use* Ch Lab: 90 [facility] ? ? ? Lymph 32.7 % 19-48 % Final *DO Not % Use* Ch Lab: 90 [facility] ? ? ? Bates 9.6 % 3.0-10.0 % Final *DO No t % Use* Ch Lab: 90 [facility] ? ? ? Eosin 3.6 % 1.0-7.0 % Final *DO Not % Use* Ch Lab: 90 [facility] ? ? ? Baso 0.3 % 0-2.0 % Final *DO Not % Use* Ch Lab: 90 [facility] ? ? ? Neut 3.2 1.2-6.7 Final *DO Not Abs Use* Ch Lab: 90 [facility] ? ? ? Lymph 1.97 1.2-3.4 Final *DO Not Ab Use* Ch Lab: 90 [facility] ? ? ? Bates 0.58 0.11-0.7 Final *DO Not Abs Use* Ch Lab: Sunni [facility] ? ? ? Eos 0.22 0-0.7 Final *DO Not Abs Use* Ch Lab: 90 [facility] ? ? ? Baso 0.02 0-0.2 Final *DO Not Abs Use* Ch Lab: 90 [facility] 08/20/2016 CK High Creat 396 U/L 39-308 U/L Final * DO Not (Creatine ine Use* Ch Kinase), Kinase Lab: 90 Total, [place] [facility] 08/20/2016 Lipid ? Sol 186 mg/dL -200 mg/dL Final *DO Not Panel, sterol Use* Ch Serum Lab: 90 [facility] ? ? ? HDL 40 mg/dL 40-60 mg/dL Final *DO Not Chol Use* Ch Lab: 90 [facility] ? ? ? Trigl 122 mg/dL 30-150 Final *DO Not ycerid mg/dL Use* Ch es Lab: 90 [facility] ? ? ? LDL 121 mg/dL -130 mg/dL Final *DO Not Calcul Use* Ch ated Lab: [facility] ? ? ? Risk 5 ? Final *DO Not Use* Ch Lab: 90 [facility] 08/20/2016 CMP, Serum ? Gluco 96 mg/dL 74-106 Final *DO Not or Plasma se mg/dL Use* Ch Lab: [facility] ? ? ? Urea 12 mg/dL 7-18 mg/dL Final *DO Not Nitrog Use* Ch en Lab: [facility] ? ? ? Creat 1.1 mg/dL 0.70-1.3 Final *DO N ot inine mg/dL Use* Ch Lab: [facility] [facility] ? ? ? Sodiu 143.1 mmol/L 136-145 Final *DO Not m mmol/L Use* Ch Lab: [facility] ? ? ? Potas 4.3 mmol/L 3.5-5.1 Final *DO N ot sium mmol/L Use* Ch Lab: [facility] ? ? ? Chlor 105 mmol/l 98-107 Final *DO No t ahmet mmol/l Use* Ch Lab: [facility] ? ? ? Carbo 27 mmol/l 21-32 Final *DO Not n mmol/l Use* Ch Dioxid Lab: 90 e [facility] ? ? ? Calci 8.8 mg/dL 8.5-10.1 Final *DO N ot um mg/dL Use* Ch Lab: [facility] ? ? ? Anion 15 ? Final *DO Not Gap Use* Ch Lab: [facility] ? ? Low BUN/c 10.9 12-20 Final *DO Not vijaya Use* Ch Lab: [facility] ? ? ? Glome >60 ? Final *DO Not rular mL/min/1.73M Use* Ch Filtra 2 Lab: 90 [facility] ? ? ? SGOT/ 25 U/L 15-37 U/L Final *DO Not AST Use* Ch Lab: 90 [facility] ? ? High SGPT/ 79 U/L 16-63 U/L Final *DO Not ALT Use* Ch Lab: 90 [facility] ? ? ? Alkal 76 U/L 46-116 U/L Final *DO No t ine Use* Ch Phosph Lab: 90 atase [facility] ? ? ? T. 0.7 mg/dL 0.2-1.0 Final *DO No t Bili mg/dL Use* Ch Lab: 90 [facility] ? ? ? Alb 3.89 g/dL 3.4-5.0 Final *DO No t g/dL Use* Ch Lab: 90 [facility] ? ? ? Total 7.0 g/dL 6.4-8.2 Final *DO Not Protei g/dL Use* Ch n Lab: 90 [facility] ? ? ? A/g 1.3 1.1-1.8 Final *DO Not Rat Use* Ch Lab: 90 [facility] 08/20/2016 Topiramate ? Topir <1.0 mcg/mL ? Faustina l *DO Not , Serum amate Use* Ch Lab: 90 [facility] ? Urinalysis ? Appea Clear ? ? Rhc - , Dipstick sunshine Protective Signal Installer al Medicine: [address] [facility] ? ? ? Gluco negative ? ? Rhc - se Internal Medicine: [address] [facility] ? ? ? Bilir negative ? ? Rhc - ubin Internal Medicine: [address] [facility] ? ? ? Keton negative ? ? Rhc - es Internal Medicine: [address] [facility] ? ? ? Speci 1.015 ? ? Rhc - fic Internal Gravit Medicine: y [address] [facility] ? ? ? Blood negative ? ? Rhc - Internal Medicine: [address] [facility] ? ? ? Ph 6.5 ? ? Rhc - Internal Medicine: [address] [facility] ? ? ? Prote negative ? ? Rhc - in Internal Medicine: [address] [facility] ? ? ? Urobi normal ? ? Rhc - lirubi Internal n Medicine: [address] [facility] ? ? ? Nitra negative ? ? Rhc - kathe Internal Medicine: [address] [facility] ? ? ? Leuko negative ? ? Rhc - cytes Internal Medicine: [address] [facility] ? Glucose, ? Blood 85 ? ? Rhc - Fingerstic Glucos Protective Signal Installer al k, Blood e: Medicine : mg/dl [address] [facility] ? Urinalysis ? Appea ? ? ? Rhc - , Dipstick sunshine Protective Signal Installer al Medicine: [address] [facility] ? ? ? Gluco negative ? ? Rhc - se Internal Medicine: [address] [facility] ? ? ? Bilir negative ? ? Rhc - ubin Internal Medicine: [address] [place] [address] ? ? ? Keton trace ? ? Rhc - es Internal Medicine: [address] [facility] ? ? ? Speci 1.015 ? ? Rhc - fic Internal Gravit Medicine: y [address] [facility] ? ? ? Blood negative ? ? Rhc - Internal Medicine: [address] [place] [address] ? ? ? Ph 5.0 ? ? Rhc - Internal Medicine: [address] [place] [address] ? ? ? Prote negative ? ? Rhc - in Internal Medicine: [address] [place] [address] ? ? ? Urobi normal ? ? Rhc - lirubi Internal n Medicine: [address] [facility] ? ? ? Nitra negative ? ? Rhc - kathe Internal Medicine: [address] [place] [address] ? ? ? Leuko negative ? ? Rhc - cytes Internal Medicine: [address] [place] [address] Past Encounters 10/04/2020 Acute Injury of Kidney; Mass of Hip Elizabeth on; Hypertensive Disorder; Fever; Acute Prostatitis Cecy Benavides MD: [address] [place] [phone], Ph. [phone] 09/27/2020 Acute Injury of Kidney; Mass of Hip Elizabeth on; Hypertensive Disorder; Dyspnea on Exertion; Fever; Acute Prostatitis Cecy Benavides MD: [address] [place] [phone], Ph. 08/09/2020 Fibromyalgia; Hypertensive Disorder; Typ e 2 Diabetes Mellitus Cecy Benavides MD: [address] [place] [phone], Ph. 07/25/2020 Pre-surgery Evaluation; Irritable Bowel Syndrome; Hypertensive Disorder; Syncope; Chronic Post-traumatic Stress Disorder; Obstructive Sleep Apnea Syndrome; Reactive Airway Disease; Spinal Stenosis of Lumbar Region; Type 2 Diabetes Mellitus; Arthritis Cecy Benavides MD: [address] [place] [phone], Ph. 07/05/2020 Administration of Influenza Vaccine; Irr itable Bowel Syndrome; Adult Health Examination; Allergic Rhinitis; Anxiety Disorder; Arthritis; Behcet's Syndrome; Chronic Post-traumatic Stress Disorder; Depres sive Disorder; Fibromyalgia; Gastroesoph ageal Reflux Disease; Hyperlipidemia; Hypertensive Disorder; Insomnia; Low Back Pain; Obstructive Sleep Apnea Syndrome; Polyp of Colon; Reactive Airway Disease; S lissette Stenosis of Lumbar Region; Steatos is of Liver; Syncope; Type 2 Diabetes Mellitus; Uveitis; Vitamin D Deficiency Cecy Benavides MD: [address] [place] [phone], Ph. [phone] 06/22/2020 Syncope; Muscle Pain; Type 2 Diabetes Me llitus; Adult Health Examination Cecy Benavides MD: [address] [place] [phone], Ph. 03/24/2020 Hypertensive Disorder; Low Back Pain; Fi bromyalgia; Irritable Bowel Syndrome; Type 2 Diabetes Mellitus Cecy Benavides MD: [address] [place] [phone], Ph. 02/22/2020 Hip Pain; Type 2 Diabetes Mellitus; Hype rtensive Disorder; Low Back Pain; Fibromyalgia; Irritable Bowel Syndrome Cecy Benavides MD: [address] [place] [phone], Ph. 01/26/2020 Intertrigo; Abnormal Urine Odor; Muscle Strain; Low Back Pain Cecy Benavides MD: [address] [place] [phone], Ph. 01/11/2020 Spinal Stenosis of Lumbar Region Kyaw Best, PA: [address] [place] [phone], Ph. 12/20/2019 Spinal Stenosis of Lumbar Region Kyaw Bset PA: [address] [place] [phone], Ph. 12/10/2019 Chest Pain; Low Back Pain; Reactive Airw ay Disease; Hip Pain; Hypertensive Disorder; Type 2 Diabetes Mellitus; Obesity; Constipation; Behcet's Syndrome Cecy Benavides MD: [address] [place] [phone], Ph. 11/15/2019 Chest Pain; Hip Pain; Anxiety Disorder; Low Back Pain; Reactive Airway Disease Cecy Benavides MD: [address] [place] [phone], Ph. 11/02/2019 Reactive Airway Disease; Strain of Inter costal Muscle; Cough Cecy Benavides MD: [address] [place] [phone], Ph. 09/09/2019 Type 2 Diabetes Mellitus; Low Back Pain; Hypertensive Disorder; Chronic Post- traumatic Stress Disorder; Constipation; Reactive Airway Disease; Obesity Cecy Benavides MD: [address] [place] [phone], Ph. 07/08/2019 Type 2 Diabetes Mellitus; Low Back Pain; Hypertensive Disorder; Chronic Post- traumatic Stress Disorder; Allergic Rhinitis Cecy Benavides MD: [address] [place] [phone], Ph. 05/06/2019 Administration of Influenza Vaccine; Chr onic Post-traumatic Stress Disorder; Anxiety Disorder; Low Back Pain; Hypertensive Disorder; Fibromyalgia; Type 2 Diabetes Mellitus Cecy Benavides MD: [address] [place] [phone], Ph. Social History Tobacco Smoking Status Never Smoker Vaccine List Vaccine Type Hep B, adult 07/21/2012 08/21/2012 01/18/2013 influenza, injectable, quadrivalent, pre servative free 05/31/2016?0.5 mL 05/09/2017 07/03/2018?0.5 mL 05/06/2019 07/05/2020 pneumococcal conjugate PCV 13 02/25/2019 pneumococcal polysaccharide PPV23 10/15/2017?0.5 mL Tdap 08/10/2012 Notes: Positive Hep B s Ab , imm une 09/05/16 Plan of Care Patient Instructions Continue the same medication(s) and call if you have any questions or concerns. Continue tamsulosin for now - continue c ipro until you complete the course and start probiotics and/or yogurt once daily at noon- Keep hydration reduce irbesartan-hct to 1/2 tab da merced Increase metoprolol to 1.5 tab daily start tamsulosin 0.4 mg [address] pill [address] dinner- Go to lab today to run blood work Monitor temperature and BS, Tylenol is o k for fever, drink a lot of water and call if any issue- continue same for now and check BP and HR twice daily and drop off log in 1 wk - we will consider possibly changing /will ng beta ranjana or different calcium channel ranjana Today we made these changes for you meds- Increase amlodipine to 5mg daily in even ing- ( may take 2 tab of 2.5 mg until out then get new script of 5mg tablets filled and take 1 / d of this one ) Retrial of Lyrica at low dose of 25 mg 1 a day at bedtime - Call if any side effects such as dizzine ss or loss of consciousness You may proceed with your LEFT HIP REPLA CEMENT surgery, we will notify your orthopedist that you are cleared. You should continue all your medications as usual until the day of surgery except Methotrexate and Remicade- These 2 medicines need to be cleared by Dr Hawk - Call his office and get instructions o n whether you should hold them and how l marguerite in advance you need to do so - Also call sr account executive and let her know you have surgery and what Dr Hawk RECOMMENDED- Follow their recommendations- On the morning of surgery, take only the se medication with a sip of water : irbesartan -HCT and nothing else- Call if you have any further concerns or questions and let us keep your next follow up as scheduled. Make sure you use cpap perioperatively start amlodipine 2.5 mg once daily take in pm- continue to hold off lyrica and getting up slowly Increase water, fruits and vegetable and limit sweets including beverage and starches breads- Preparing meals so you always have plans to have a healthy light snack and not to get to hunger stage- alway s eat slowly- take your time so you can process the food - Increase linzess to 290 mcg take once da merced ( may take 2 of 145 mcg until complete) - new script sent to pharmacy- Start colace daily 100 mg - If no BM in 2 days then take miralax to go , avoid waiting too long- Go to dentist for check up before surger y consider stopping lyrica for 3-4 da ys and see how you feel- if recurrent fainting, call 911- stay hydrated - get lab today and monito r for cardiac arrythmia Nela, it was nice talking to you by phone today. I am looking forward to hear back from t he spinal surgeon regarding the management plan for your stenosis. In the meantime I am hoping continuing the present medications and adding tizanidine at bedtime will help release some of the tension i n the back and help with the pain and spasm. Do not drive after taking this medications because it could be sedating. You may try 1/2 a tablet and if this is not effective, may increase it to 1 tablet a t bedtime as needed. Continue working on eating healthy, anabel thing and meditation, hopefully improving sleep and getting some stretching and walking through the day. Pace herself so it does not give you a setback. I have sent a refill as requested on Ai zess and Celebrex for 90 days. I will see in 3 months and repeat labs p rior. The office will schedule that for you resume linzess and celebrex 1/d eac h- continue regular daily breathing and med itation practice as well as gentle movement and stretches to help your pain and remain functional Call and schedule MRI soon - call if you need anything You are doing well and things will start moving in right direction hopefully soon go to lab today and i will call christy abbott results = Continue drinking plenty of water and ea t oranges or banana- Use Gold Vargas powder 2-3 times a day in groin area- We talked about different options. As noted in my previous note he has had some epidural injections which really did not provide him any relief. I have therefore suggested we get him an opinion christy abbott a spinal surgeon to see what their tho ughts are going forward. He is very young and is having difficulty with his ADLs. He is having difficulty playing with his kids. He is getting pretty frustrated s o I think a surgical opinion would be wa rranted. In the meantime, I am going to try an intra-articular injection in his hip and see if this provides him any relief. That may give us a better indicator h ow much pain may be coming from his hip versus how much is being generated from his back itself. He is in agreement with doing this we will get this set up for the next time in the procedure room. I am going to refer him to Dr. Francheska [place] in [place]. He is in agreement with this. We will push up the notes, the referral, as well as the MRI images themselves for his review. I will see him back in a c ouple weeks for his injection. If he has any problems in the meantime he will let me know. This note was created using [employer] voice recognition software. It was reviewed for major content. However, there may be multiple small discrepancies and errors due to the voice recognition aspects of the software. Because of the intensity of his sym ptoms we talked about treatment options. Were going to go ahead and obtain a new MRI scan of his lumbar spine to compare to the one taken several years ago. We ma y consider some different injections, ho wever, they were not particularly beneficial in the past so we will see how significant the stenosis is compared to 2016. We also did talk about the possibility o f trying an intra-articular steroid inje ction into his hip to see if this provides him some relief. Again, I think he has multiple pain generators here and I do not think 1 of these issues is going to b e curative. Just examining him and javi deshpande to him by history, I think the majority of his symptoms are coming from the back, however, I do think he has some hip issues as well. We will obtain the MRI scan. I will see him back after the scan and we will go over the results and further treatment options. In the interim he should stay on the Celebrex. This note was created using [employer] voice recognition software. It was reviewed for major content. However, there may be multiple small discrepancies and errors due to the voice recognition aspects of the software. Continue the same medication(s), ex cept change irbesartan to irbesartan- hydrochlorothiazide 300-12.5 mg 1 tab in am daily and call if you have any questions or concerns. Get ortho opinion regarding the hip. Otherwise you are doing well, your sugar s are better controlled as well as your bowel movements. Continue working on stretch, exercise, reducing portions, moderation and better healthy food choices. Remember your labs before next visit in 2-month get chest CT scan stat to rule out blood clot/PE, and get hip XRay as well- we will call you with the results and if we need to start blood thinners. get started on celecoxib 200 mg once harish ly with food- call if any side effects- continue gentle stretching and moist hea t to help the pain - continue all medicine the same and melodie nue pulmicort twice daily Start ventolin as neeeded for cough , sh ortess of breath and wheezing 2 puffs up to every 46-6 hrs - Continue practice of breathing and medit ation to help with anxiety and bodily tension. Keep on 12/06 Make sure to take Pulmicort 2 puffs twice daily and rinse after your mouth. Start prednisone as instructed taking wi th food to help with breathing and chest wall pain. Call if you are not better or any side e ffects. May continue using Ventolin as needed . Moist heat and gentle stretching recomme nded for back pain symptoms- We will notify you with results Keep hi fiber in your diet- Taking citrucel daily is a way but if yo u forget in the morning , having some other ways to rely on is helpful such as prunes at work you can munch on or supplementing in your yogurt or cereal a mix of grains and seeds (mix Ground Flax , hemp seed, raymond seed) and keep drinking a lot of water - Continue the same medication(s) except a smanex increase to 2 puffs twice daily , (gargle after) increase trulicity to 1.5 mg once weekly and increase irbesartan to 1.5 tab daily - - call if you have any questions or concerns.Call if any side effects such as dizziness, and vomiting Use a scarf to keep air you breath warme r by covering lower face /mouth and nose . Go to the lab before next appointme nt- Continue same meds and limiting portions and call if any problem Continue the same medication(s) and call if you have any questions or concerns. We will start victoza for diabetes and w eight loss- Inject 0.6 mg daily in am for 2 wks then if you tolerate it , you may increase to 1.2 mg until i see you next - Expect the medicine to make you feel ful l more early allowing you to eat smaller portions- Try to keep diet balanced , 3 small meal s , balanced , starting with your veggies, and protein (beans/ grains and seeds/fish/meat or chicken..) and finishing with a small amount of carbs ( pasta, bread) Always choose whole wheat or whole grain when eating carbs and avoid sweets in general 0 Drink a lot of water - [place] [facility] [place] t herapy too Reminders Provider Appointments None recorded. ? ? Lab None recorded. ? ? Referral None recorded. ? ? Procedures None recorded. ? ? Surgeries None recorded. ? ? Imaging None recorded. ? ? Vitals 10/04/2020 01:00PM FOLLOW UP Height Weight BMI Blood Pressure 173.99 cm 105.41 kg 34.8 kg/m2 118/88 mm[Hg] 09/27/2020 12:40PM HOSPITAL F/U - ESTABLISHED Height Weight BMI Blood Pressure 173.99 cm 102.06 kg 33.7 kg/m2 124/80 mm[Hg] 08/09/2020 09:30AM FOLLOW UP Height Weight BMI Blood Pressure 173.99 cm 136/86 mm[Hg] 07/25/2020 12:40PM FOLLOW UP Height Weight BMI Blood Pressure 173.99 cm 108.05 kg 35.7 kg/m2 150/84 mm[Hg] 07/05/2020 12:40PM ANNUAL EXAM Height Weight BMI Blood Pressure 173.99 cm 107.05 kg 35.4 kg/m2 128/100 mm[Hg] 06/22/2020 09:30AM ACUTE - ESTABLISHED Height Weight BMI Blood Pressure 177.8 cm 107.05 kg 33.9 kg/m2 (1) 136/82 mm[H g] (2) 134/88 mm[Hg ] (3) 138/90 mm[Hg ] 03/24/2020 12:40PM Virtual Check-in Phone Height Blood Pressure 177.8 cm 132/86 mm[Hg] 02/22/2020 09:30AM FOLLOW UP Height Blood Pressure 177.8 cm 143/99 mm[Hg] 01/26/2020 10:10AM ACUTE - ESTABLISHED Height Blood Pressure 177.8 cm 146/90 mm[Hg] 01/11/2020 02:10PM ORTHO 20 FOLLOW UP Height 177.8 cm 12/20/2019 04:10PM ORTHO 20 NEW PATIENT Height Weight BMI Blood Pressure 177.8 cm 99.79 kg 31.6 kg/m2 150/88 mm[Hg] 12/10/2019 09:30AM Telehealth Distant visit Height Blood Pressure 177.8 cm 152/96 mm[Hg] 11/15/2019 11:10AM ACUTE - ESTABLISHED Height Blood Pressure 177.8 cm 148/96 mm[Hg] 11/02/2019 08:30AM ACUTE - ESTABLISHED Height Blood Pressure 177.8 cm 152/100 mm[Hg] 09/09/2019 10:30AM FOLLOW UP Height Weight BMI Blood Pressure 177.8 cm 104.33 kg 33 kg/m2 138/92 mm[Hg] 07/08/2019 11:10AM FOLLOW UP Height Weight BMI Blood Pressure 177.8 cm 103.42 kg 32.7 kg/m2 120/82 mm[Hg] 05/06/2019 10:10AM FOLLOW UP Height Weight BMI Blood Pressure 177.8 cm 104.33 kg 33 kg/m2 138/94 mm[Hg] 03/11/2019 09:50AM FOLLOW UP Height Weight BMI Blood Pressure 177.8 cm 104.33 kg 33 kg/m2 134/92 mm[Hg] 01/28/2019 03:30PM ACUTE - ESTABLISHED Height Weight BMI Blood Pressure 177.8 cm 105.23 kg 33.3 kg/m2 124/88 mm[Hg] 12/29/2018 10:30AM FOLLOW UP Height Weight BMI Blood Pressure 177.8 cm 104.6 kg 33.1 kg/m2 124/88 mm[Hg] 12/01/2018 11:30AM ANNUAL EXAM Height Weight BMI Blood Pressure 177.8 cm 106.14 kg 33.6 kg/m2 128/86 mm[Hg] 07/24/2018 10:10AM ACUTE - ESTABLISHED Height Weight BMI Blood Pressure 177.8 cm 101.6 kg 32.1 kg/m2 122/86 mm[Hg] 07/03/2018 08:50AM FOLLOW UP Height Weight BMI Blood Pressure 177.8 cm 101.6 kg 32.1 kg/m2 134/90 mm[Hg] 02/16/2018 11:20AM FOLLOW UP Height Weight BMI Blood Pressure 177.8 cm 98.66 kg 31.2 kg/m2 110/78 mm[Hg] 02/02/2018 10:40AM F/U - ESTABLISHED Height Weight BMI Blood Pressure 177.8 cm 97.07 kg 30.7 kg/m2 128/84 mm[Hg] 12/16/2017 09:50AM FOLLOW UP Height Weight BMI Blood Pressure 177.8 cm 98.88 kg 31.3 kg/m2 130/92 mm[Hg] 10/15/2017 11:00AM ANNUAL EXAM Height Weight BMI Blood Pressure 177.8 cm 99.34 kg 31.4 kg/m2 128/90 mm[Hg] 09/19/2017 10:50AM ACUTE - ESTABLISHED Height Weight BMI Blood Pressure 177.8 cm 96.73 kg 30.6 kg/m2 128/78 mm[Hg] 08/19/2017 10:10AM ACUTE - ESTABLISHED Height Weight BMI Blood Pressure 177.8 cm 96.73 kg 30.6 kg/m2 125/84 mm[Hg] 07/02/2017 10:40AM FOLLOW UP Height Weight BMI Blood Pressure 177.8 cm 98.43 kg 31.1 kg/m2 122/82 mm[Hg] 06/17/2017 09:30AM FOLLOW UP Height Weight BMI Blood Pressure 177.8 cm 96.16 kg 30.4 kg/m2 120/78 mm[Hg] 06/06/2017 11:50AM FOLLOW UP Height Weight BMI Blood Pressure 177.8 cm 97.75 kg 30.9 kg/m2 132/98 mm[Hg] 2017 10:10AM FOLLOW UP Height Weight BMI Blood Pressure 177.8 cm 98.43 kg 31.1 kg/m2 132/86 mm[Hg] 05/19/2017 12:40PM HOSPITAL F/U - ESTABLISHED Height Weight BMI Blood Pressure 177.8 cm 98.88 kg 31.3 kg/m2 122/76 mm[Hg] 05/09/2017 09:30AM FOLLOW UP Height Weight BMI Blood Pressure 177.8 cm 98.43 kg 31.1 kg/m2 122/82 mm[Hg] 04/07/2017 12:40PM ACUTE - ESTABLISHED Height Weight BMI Blood Pressure 177.8 cm 97.98 kg 31 kg/m2 116/72 mm[Hg] 04/01/2017 06:00PM ACUTE - ESTABLISHED Height Weight BMI Blood Pressure 177.8 cm 97.98 kg 31 kg/m2 118/81 mm[Hg] 03/17/2017 02:00PM FOLLOW UP Height Weight BMI Blood Pressure 177.8 cm 97.07 kg 30.7 kg/m2 114/78 mm[Hg] 09/02/2016 01:20PM ANNUAL EXAM Height Weight BMI Blood Pressure 177.8 cm 100.24 kg 31.7 kg/m2 114/76 mm[Hg] 05/31/2016 10:30AM FOLLOW UP Weight Blood Pressure 98.88 kg 124/88 mm[Hg]
--- OUTSIDE RECORDS SUMMARY | 2020-10-21 11:29 | XMS_ITS ---
:1970 Author Care Team Providers Name Role Phone MARBIN BENAVIDES (DIRECT) Primary Care Provider [phone] [facility] MEDICAL RECORDS Primary Care Provider [phone] [facility] OTHER [phone] Allergies Code Code System Name Reaction Severity Status Onset 171243 RxNorm Peanut ? ? Active ? Notes: apple fiber, nuts Medications Name Status Start Date Stop Date ? ? Ambien 10 mg tablet Completed 08/22/2016 08/24/2016 1 (one) Tablet: qhs - at bedtime amoxicillin 500 mg capsule Completed ? 01/09 amoxicillin 500 mg-potassium Completed ? clavulanate 125 mg tablet aspirin 81 mg tablet,delayed Completed ? release azithromycin 250 mg tablet Completed ? 01/09 benzonatate 100 mg capsule Completed ? 01/09 celecoxib 200 mg capsule Active ? Not thuy ilable Take 1 capsule every day by oral route. ciprofloxacin 500 mg tablet Completed ? 12/20 Claritin Active ? Not available 10mg daily colchicine 0.6 mg capsule Active ? Not av ailable Compazine Active ? Not available 10mg Q8hr PRN Durezol 0.05 % eye drops Completed ? 018 epinephrine Active ? Not available PRN epinephrine 0.3 mg/0.3 mL Completed ? 2017 injection, auto-injector esomeprazole magnesium Active ? Not avail able 1cap daily Excedrin Active ? Not available PRN Flovent Diskus 250 Completed ? 01/09/2018 mcg/actuation powder for inhalation fluticasone propionate Active ? Not avail able 1 spray nasal PRN fluticasone propionate 50 Completed ? 2017 mcg/actuation nasal spray,suspension IBU 600 mg tablet Completed ? 01/09/2018 loratadine 10 mg tablet Completed ? 01/10/20 18 losartan 25 mg tablet Completed ? 01/09/2018 losartan 50 mg tablet Active ? Not availa ble magnesium oxide 400 mg (241.3 Completed ? mg magnesium) tablet meclizine 25 mg tablet Completed ? 8 modafinil Completed ? 01/15/2018 100mg BID montelukast 10 mg tablet Completed ? 018 Mucinex 600 mg tablet, Completed ? 8 extended release Nexium 40 mg capsule,delayed Active ? Not available release Nuvigil 150 mg tablet Completed ? 05/20/2019 Take 1 tablet every day by oral route as needed. OneTouch Delica Lancets 33 Completed ? 01/09 gauge OneTouch Ultra Blue Test Strip Completed ? 0 01/09/2018 OneTouch UltraMini kit Completed ? 8 oseltamivir 75 mg capsule Completed ? 2017 pilocarpine 5 mg tablet Active ? Not avai lable Take 1 tablet(s) 3 times a day by oral route for 30 days. take 1 tablet by mouth three times a day prednisolone acetate 1 % eye Completed ? drops,suspension prednisone 20 mg tablet Completed ? 01/10/20 18 pregabalin 50 mg capsule Active ? Not thuy ilable Take 1 capsule 3 times a day by oral route. ProAir HFA 90 mcg/actuation Completed ? 12/20 aerosol inhaler prochlorperazine maleate 5 mg Completed ? tablet propranolol ER 60 mg Completed ? 01/09/2018 capsule,24 hr,extended release Provigil 100 mg tablet Completed ? 8 rizatriptan 5 mg tablet Active ? Not avai lable Sonata 5 mg capsule Completed 08/23/2016 06/02/2017 1-2 Capsule Capsule: qhs - at bedtime sucralfate 1 gram tablet Active ? Not thuy ilable sulfamethoxazole 800 Completed ? 01/09/2018 mg-trimethoprim 160 mg tablet sumatriptan 100 mg tablet Completed ? 2017 TobraDex 0.3 %-0.1 % eye Completed ? 018 drops,suspension Topamax Completed ? 05/20/2019 100mg daily at bedtime topiramate 100 mg tablet Completed ? 018 topiramate 200 mg tablet Completed ? 06/22/2 018 topiramate 25 mg tablet Completed ? 01/10/20 18 triamcinolone acetonide 0.1 % Completed ? topical ointment Trulicity 0.75 mg/0.5 mL subcutaneous pen injector Active ? Not available Inject 0.5 mL every week by subcutaneous route. Tylenol Active ? Not available PRN Xifaxan 550 mg tablet Completed ? 01/09/2018 Problems Name Status Onset Date Source ? Hyperlipidemia Active 01/09/2018 ? Gastroesophageal Reflux Disease Active 01/09/2018 ? Osteoarthritis Active 01/09/2018 ? Xerostomia Active 10/14/2019 ? Insomnia Active 06/13/2020 ? Hyperlipidemia Unknown ? History Obstructive Sleep Apnea Syndrome Active ? History Circadian Rhythm Sleep Disorder of Active ? History Shift Work Type Chronic Tension-type Headache Active ? Hi story Migraine with Aura Active ? History Migraine without Aura Active ? History Hypertensive Disorder Active ? History Arthropathy Unknown ? History Fibromyalgia Active ? History Finding of Esophagus Unknown ? History Procedure by Method Unknown ? History Procedures None recorded. Results Lab Results None recorded. Past Encounters 06/13/2020 Obstructive Sleep Apnea Syndrome; Insomn ia Marissa Sidhu AQUARIUM SPECIALIST: [address] [place] [phone], Ph. 10/14/2019 Obstructive Sleep Apnea Syndrome; Xerost omia; Circadian Rhythm Sleep Disorder of Shift Work Type Marissa Sidhu AQUARIUM SPECIALIST: [address] [place] [phone], Ph. 05/20/2019 Obstructive Sleep Apnea Syndrome Marissa Sidhu AQUARIUM SPECIALIST: [address] [place] [phone], Ph. Social History Tobacco Smoking Status Never Smoker Vaccine List None recorded. Plan of Care Reminders Provider Appointments None ? ? recorded. Lab None ? ? recorded. Referral None ? ? recorded. Procedures None ? ? recorded. Surgeries None ? ? recorded. Imaging None ? ? recorded. Vitals 06/13/2020 08:30AM Office 30 Height Weight BMI 180.34 cm 102.06 kg 31.4 kg/m2 10/14/2019 11:15AM Office 30 Weight 104.33 kg 05/20/2019 08:30AM Office 30 Weight Blood Pressure 104.14 kg 142/92 mm[Hg] 01/15/2018 02:30PM Office 30 Height Weight BMI Blood Pressure 177.8 cm 98.88 kg 31.3 kg/m2 130/96 mm[Hg] 06/02/2017 Height Weight Blood Pressure 177.8 cm 96.62 kg 138/88 mm[Hg] 02/13/2017 Height Weight Blood Pressure 177.8 cm 96.62 kg 122/84 mm[Hg] 12/24/2016 Height Weight Blood Pressure 177.8 cm 98.88 kg 136/86 mm[Hg] 10/18/2016 Height Weight Blood Pressure 177.8 cm 97.1 kg 140/90 mm[Hg] 08/22/2016 Height Weight Blood Pressure 177.8 cm 97.15 kg 118/64 mm[Hg]
--- OUTSIDE RECORDS SUMMARY | 2020-10-21 11:29 | XMS_ITS | Encounter Summary ---
:1970 Author Care Team Providers Name Role Phone Dr. Cecy Rasmussen Primary Care Provider [phone] Cecy Rasmussen (Direct) Primary Care Provider [phone] Dr. Cecy Rasmussen Referring Provider [phone] Ameya Kendrick Clinical Instructor [phone] [facility] Office Hard Candy Spinner [phone] Reason for Visit 1 wk f/u Assessment and Plan Assessment Note Keep appointment in October with labs prior. 20 minutes spent preparing to see the pa tient (eg, reviewing tests, obtaining and/or reviewing separately obtained history, exam and evaluation, performing a medically necessary appropriate examination and/or evaluation, counselling, ordering proper testing and collaboration with ortho. After reviewing assessment and recommendations, including risks, benefits and alternative treatment options, PtGildardo arrieta balized an understanding and he agreed w ith this plan. 1. Acute injury of kidney Patient was discharged with di agnoses of FUO and SAUD from [facility] recently. It is not very clear for me if his kidney injury happened after his CT contrast or prior as part of the fever/sepsis presentation. In an y case it seems to have improved with hydration , repeat kidney test shows creatinine 1.35 and we will repeat that again in October. I noticed his MCV is low. Hemoglobin stanton ctrophoresis and sickle cell screen is ordered and pending 2. Mass of hip region Mass measuring 4 x 3 x 7 cm an terolateral hip and thigh area was seen subcutaneously on CT. There was no gas b ubbles suggestive of abscess. This could be postop seroma. Patient does not have any significant pain in his hip and is being followed by Ortho who continues to feel that this is not infected and are monitoring him 3. Hypertensive disorder pt was here last visit and was quite tachycardic. We did make changes to his medications by increasing metoprolol and cutting down on irbesartan 300- HCTZ 12.5 mg, to 1/2 tablet With this change and with improvement in his fiber, pain and anxiety, his pulse is down to normal and his TSH and electrolytes were normal 4. Fever Patient with fever suspect due to prostatitis and resolved on Cipro. Continue same. Work-up shows elevated PS A and slightly elevated ESR 32 but negative blood cultures which is reassuring 5. Acute prostatitis Patient presented with dysuri a, fever, tender prostate, post massage UA positive for nitrite and elevated PSA an d ESR. He is being treated with Flomax due to hesitancy, irritative and obstructive sy mptoms and Cipro 14-day course. He is much improved and will continue treatment the same. Urine culture did not grow anything which was interesting. Given that I will give him Cipro for 14 days and not extended 6 weeks as an usual treatment for prosta titis- ? PSA, serum or plasma Discussion Note: None recorded.Patient educational handouts: No information available. Plan of Care Patient Instructions Continue the same medication(s) and call if you have any questions or concerns. Continue tamsulosin for now - continue c ipro until you complete the course and start probiotics and/or yogurt once daily at noon- Keep hydration Reminders Provider Appointments Follow up 11/13/2020 Sharon Rasmussen MD 11:30AM Lab PSA, Serum 10/28/2020 [facility] or Plasma (Lab) Referral None ? ? recorded. Procedures None ? ? recorded. Surgeries None ? ? recorded. Imaging None ? ? recorded. Medications Name Start Date ? ? amlodipine 5 mg tablet ? Take 1 tablet every day by oral route for 30 days. ciprofloxacin 500 mg tablet ? Take 1 tablet every 12 hours by oral route for 14 day s. Citrucel Sugar Free oral powder ? 1 capful in a glass of water once daily Colace 100 mg capsule ? Take 1 capsule every day by oral route for 30 days. duloxetine 30 mg capsule,delayed release ? take 1 capsule by mouth twice a day epinephrine 0.3 mg/0.3 mL injection, auto-injector ? INJECT INTRAMUSCULARLY IF NEEDED FOR ANAPHLAXIS esomeprazole magnesium 40 mg capsule,delayed release ? Take 1 capsule twice a day by oral route for 90 days. ezetimibe 10 mg tablet ? take 1 tablet by mouth once daily fluticasone propionate 50 mcg/actuation nasal spray,fatima spension ? [place] 2 sprays twice a day by intranasal route. folic acid 1 mg tablet 10/21/2018 Take 1 tablet every day by oral route. irbesartan 300 mg-hydrochlorothiazide 12.5 mg tablet ? take 1 tablet by mouth every morning lancets ? Patient needs a new glucose meter - One Touch Ultra and the lancets to go with the machine. Please issue one meter. Dx E11.9- This is medically necessary. 09/03/19-Called into [place] at [facility] with 3 refills Linzess 290 mcg capsule ? Take 1 capsule every day by oral route for 30 days. loratadine 10 mg tablet ? Take 1 tablet every day by oral route. Maalox Advanced 200 mg-200 mg-20 mg/5 mL oral suspensi on ? Take 10 mL 4 times a day by oral route as needed. methotrexate 2.5 mg tablet 10/24/2018 Take 6 tablets every week by oral route. metoprolol succinate ER 25 mg tablet,extended release 24 hr ? Take 1.5 tablets every day by oral route for 30 days. Miralax 17 gram/dose oral powder ? TAKE 17 GRAM MIXED WITH 8 OZ. WATER, JU ICE, SODA, COFFEE OR TEA BY ORAL ROUTE ONCE DAILY as needed pregabalin 25 mg capsule ? take 1 capsule by mouth at bedtime Remicade 10/22/2018 per rheum , for behcet 5mg/kg q 6 wk Singulair ? 10 mg qd for allergies tamsulosin 0.4 mg capsule ? Take 1 capsule every day by oral route after meals fo r 30 days. triamcinolone acetonide 0.1 % topical ointment 019 APPLY A THIN LAYER TO THE AFFECTED AREA(S) BY TOPICAL ROUTE 2 TIMES PER DAY Trulicity 1.5 mg/0.5 mL subcutaneous pen injector ? INJECT 0.5ML (1.5MG) SUBCUTANEOUSLY EVERY WEEK Tylenol Arthritis Pain 650 mg tablet,extended release ? Take 2 tablets twice a day by oral route for 30 days. Ventolin HFA 90 mcg/actuation aerosol inhaler ? Inhale 2 puffs every 4 hours by inhalation route as n eeded. use as needed if short of breath, wheez ing or cough , or before walking up the hill Vitamin D2 1,250 mcg (50,000 unit) capsule ? take 1 capsule by mouth every week Notes: autoPAP titration started 02/03 optimal pressure was found to be 8- 18 cwp- Medications Administered None recorded. Vitals Height Weight BMI Blood Pressure 5 ft 8.5 in 232.4 lbs 34.8 kg/m2 118/88 mm[Hg] Results Lab Results None recorded. Allergies Code Code System Name Reaction Severity Onset [id number] Myalgias (Muscle Moderate 10/2012 Reductase Pain) Inhibitors 8406523 RxNorm Apple Anaphylaxis ? ? Nut - Unspecified Anaphylaxis ? ? [place] ? ? ? NKDA ? ? ? Problems Name Status Onset Date Source ? Fibromyalgia Active 01/26/2013 ? Headache Active 01/26/2013 ? Abdominal Pain Active 01/26/2013 ? Arthritis Active 04/12/2013 ? Polyp of Colon Active 03/21/2014 ? Insomnia Active 09/30/2014 ? Hypertensive Disorder Active 09/30/2014 ? Neck Pain Active 09/30/2014 ? Shoulder Joint Pain Active 09/28/2015 ? Cervical Disc Disorder with Radiculopathy Active 2015 ? Low Back Pain Active 12/11/2015 ? Knee Pain Active 03/13/2016 ? Steatosis of Liver Active 09/05/2016 ? Obstructive Sleep Apnea Syndrome Active 10/29/2016 ? 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 Obesity Active 05/11/2017 ? Migraine Active 05/20/2017 ? Gallstone Active 05/20/2017 ? Near Syncope Active 05/20/2017 ? Anxiety Disorder Active 05/24/2017 ? Carpal Tunnel Syndrome Active 06/08/2017 ? Vertigo Active 06/08/2017 ? Vitamin D Deficiency Active 06/10/2017 ? Numbness and Tingling Sensation of Skin Active 06/10/20 17 ? Type 2 Diabetes Mellitus Active 06/17/2017 [...] decompression 07/21/2004 Appendectomy Information not avai lable Vaccine List Vaccine Type Hep B, adult 07/21/2012 08/21/2012 01/18/2013 influenza, injectable, quadrivalent, pre servative free 05/31/2016?0.5 mL 05/09/2017 07/03/2018?0.5 mL 05/06/2019 07/05/2020 pneumococcal conjugate PCV 13 02/25/2019 pneumococcal polysaccharide PPV23 10/15/2017?0.5 mL Tdap 08/10/2012 Notes: Positive Hep B s Ab , imm une 09/05/16 Social History Tobacco Smoking Status Never Smoker What type of diet are you REGULAR following? Are you able to care for Y yourself? Are you currently waiting on N results of a COVID-19 test? What is your code status? 0 How much tobacco do you chew? none Do you have a medical power of N workers compensation defense attorney? Are you isolating or N quarantining because you may have been exposed to a person with COVID-19 or are worried that you may be sick with COVID-19? Which illicit or recreational denies drugs have you used? Guardianship/Legal Issues No. Notes: 11/18 Have you been to an area known N to be high risk for COVID-19? Was patient offered smoking N/A cessation At what age did you start 0 smoking tobacco? Have you received the covid N vaccine this year? (If so, document vaccination in Vaccine Module in [place]) Daily caffeine consumption: mild Notes: 1 cup of coffee in the morning. Quit smoking at age? 1 Do you have a life line? N In the 14 days before symptom N onset, have you had close contact with a person who is under investigation for COVID-19 while that person was ill? Do you use sunscreen routinely? Y What was the date of your most 10/04/2020 recent tobacco screening? Do you or have you ever used Never used electronic e-cigarettes or vape? cigarettes Do you have an advanced N directive? How many years have you smoked 0 tobacco? In the 14 days before symptom N onset, have you had close contact with a laboratory-confirmed COVID-19 while that case was ill? What is your exercise level? Occasional Notes: W alking Domestic violence: N Recurrent fall? N Have you travelled outside of [facility] in the past 14 days? Have you experienced any of the N following symptoms in the past 48 hours? Fever/Chills, Cough, Shortness of breath or difficulty breathing, fatigue, muscle or body aches, headache, new loss of taste or smell, sore throat, congestion or runny nose, nausea or vomiting and/or diarrhea Have you had any vaccines in the N last month or do you have any vaccines scheduled? Do you or have you ever used Never used smokeless tobacco smokeless tobacco? Within the past 14 days, have N you been in close physical contact (6 feet or closer for a cumulative total of 15 minutes) with anyone that is known to have laboratory-confirmed COVID-19? OR Anyone who has any symptoms consistent with COVID-19? 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 Past Encounters 10/04/2020 Acute Injury of Kidney; Mass of Hip Elizabeth on; Hypertensive Disorder; Fever; Acute Prostatitis Cecy Rasmussen MD: [address] [place] [phone], Ph. 09/27/2020 Acute Injury of Kidney; Mass of Hip Elizabeth on; Hypertensive Disorder; Dyspnea on Exertion; Fever; Acute Prostatitis Cecy Rasmussen MD: [address] [place] [phone], Ph. History of Present Illness Note: Reason for Visit/Add'l information:
<div>1 wk f/u</div><div>
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 Info seems {{reliable* not reliable}}.

Were there any discrepancies? {{ No* Yes}}. If yes, then list- n/a
<br&g t;Medications completed due to end of course if any - n/a

Have you been seen by another provider, had an ER visit or hospitalization since our last visit here on 09/27 : Saw Dr. Hawk for his hip today, f/u, and XR.

And have any Medications been added, stopped or adjusted since last visit? n/a

Provider HPI </div><div>At his last visit we started cipro and tamsulosin for urinary syx of prostatitis and fever - </div><div>Also given tachy cardiac, we did reduce irbesartan-hct to 1/2 tab daily and Increased metoprolol to 1.5 tab daily-
</div><div>Since then he feels a lot better - </div><div>He states his urinary flow is better and minimal pain if any - he is on day 6 of cipro - no recurrent f/c- cipro started kicking in after 2 days- has 14 day course prescribed- breathing is better and hip ok and tachycardiac is better, BP and HR much improved-</div><div>has mild diarrhea and states he is not on probiotics - drinking water- no abd pain- </div><div>Reviewed his labs blood cultures are negative as well as urine culture despite having slightly positive UA post prostate massage and slightly elevated PSA. Magnesium was normal as well as electrolytes, creatinine 1.35 improved, normal CPK and CRP as well as TSH and CBC, ESR at 32. Normal liver test.
</div>Review of Systems: ROS as noted in the HPI Review of Systems None recorded. Physical Exam ? [facility] General Adult Exam Reported By: Patient Constitutional: General Appearance: well-dev eloped, obese. Level of Distress: NAD. Ambulation: ambulation with cane Psychiatric: Mental Status: active and al ert, normal mood. Orientation: to time, to place, to person Head: Head: normocephalic, atrauma tic Eyes: Lids and Conjunctivae: non-i njected, no pallor. Sclerae: non-icteric ENMT: Lips, Teeth, and Gums: no mo uth or lip ulcers. Oropharynx: moist mucous membranes, tonsils no t enlarged Lungs: Respiratory effort: no dyspn ea. Auscultation: breath sounds normal, good air movement, no wheezi ng, no rales/crackles, no rhonchi Cardiovascular: Apical Impulse: not displace d. Heart Auscultation: RRR, normal S1, normal S2, no murmurs Abdomen: Bowel Sounds: normal. Inspec tion and Palpation: soft, non-distended, no tenderness, no guarding, no masses, no CVA tenderness Skin: Inspection and palpation: ; left hip wound closed , clean and healed
--- OUTSIDE RECORDS SUMMARY | 2020-10-21 11:29 | XMS_ITS | Encounter Summary ---
:1970 Author Care Team Providers Name Role Phone Dr. Cecy Rasmussen Primary Care Provider [phone] Cecy Rasmussen (Direct) Primary Care Provider [phone] Dr. Cecy Rasmussen Referring Provider [phone] Ameya Kendrick Synthetic Staple Extruder [phone] [facility] Office Salesperson Burial Needs [phone] Reason for Visit OFFICE: [facility] for fever SAUD , (Kidney). Assessment and Plan Assessment Note RTC 1 wk to f/u on SAUD, hip mass , ? prostatitis , htn/tachy- 60 minutes spent preparing to see the pa [...] di agnoses of FUO and SAUD from [facility] recently. It is not very clear for me if his kidney injury happened after his CT contrast or prior as part of the fever/sepsis presentation. In an y case it seems to have improved with hydration and will repeat kidney test to monitor. Today urinalysis was negative and no evidence of casts. 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 hemoglobin S (hbs), presen ce, blood ? hemoglobin (Hb) electropho resis, blood 2. Mass of hip region Mass measuring 4 x 3 x 7 cm an terolateral hip and thigh area was seen subcutaneously on CT. There was no gas b ubbles suggestive of abscess. This could be postop seroma. I could not feel any mass on exam today but this could be deep and not palpable. May benefit from repeat imagin g but will leave that to Ortho, he will see them soon. They did not feel this was in fectious and they are monitoring and not planning to aspirate as patient has no s ignificant hip pain other than what is expected postop and seems to be doing we ll with that 3. Hypertensive disorder pt is on irbesartan 300-HCTZ 1 2.5 mg, 1 tablet which he resumed post discharge from this recent stay. This was put on hold while hypotensive/septic in the hospital shortly. He is also on amlod ipine and metoprolol. He has noticed bucky t his blood pressure is currently adequate but heart rate persistently elevated which is the case per our readings as well. I will therefore increase metoprolol t o 1.5 tablet daily and cut down irbesart an HCTZ to half a tablet daily- The tachycardia could be related to curr ent illness but also patient has had tachycardia in the past requiring addition of metoprolol few month ago And prior work-up showed normal thyroid tests and elec trolytes therefore no clear cause to bucky t other than possibly related to anxiety/PTSD but also cannot rule out that it is related to some kind of febrile illness. We will however recheck TSH as we adjust currently the dose ? TSH + free T4, serum ? metoprolol succinate ER 25 mg tablet,extended release 24 hr ? irbesartan 300 mg-hydrochl orothiazide 12.5 mg tablet 4. Dyspnea on exertion RAD , cough variant asthma-he seems overall better and has reduced use of steroid inhaler and currently only uses Ventolin as needed which he needs refills on ? Ventolin HFA 90 mcg/actuat ion aerosol inhaler 5. Fever Patient with fever of unclear etiology-hi risk due to being post op with prosthetic hip but blood culture neg- e mass in hip area is likely seroma but one cannot r/o abcess /infection- on other h and he has urinary syx but UA x 3 in hosp neg- Initial urine today was negative bu t after prostate examination, his urine shows 1+ nitrate. His prostate exam was quite tender and slightly enlarged. Most of his symptoms are urinary with decreased flow , having to strain, some burning and pain and cloudy urine. I think he does have acute prostatitis. I will repeat kidney test, CBC the, CPK, ESR and CRP and get a magnesiu m as well. Ortho want to hold off aspiration as they dont believe seroma or prosthesi s is infected ? urinalysis, dipstick ? BMP, serum or plasma ? CBC w/ manual diff ? hepatic function panel, se rum ? PSA, serum or plasma - DUP LICATE ORDER ? CK (creatine kinase), tota l, serum ? magnesium, serum or plasma ? erythrocyte sedimentation rate by westergren method ? C reactive protein, QN, se rum or plasma ? urinalysis, dipstick ? culture, blood ? culture, urine 6. Acute prostatitis Patient tells me that he has tender prostate at baseline on prior digital rectal exam but he feels this was more painful than usual and triggered the same urge to urinate as he has been getti ng. his post massage UA positive for nit rite - I will add low-dose Flomax as well to improve urinary flow addendum : PSA 5.55 elevated with positi ve syx and post massage urine with nitrate all suggest prostatitis- culture pending - we will start atb for GNR , cipro 500 mg bid , duration for 2 wks although w ill extend for 6 wks at follow up - cult ure pending, also started flomax - f/u in 1 w ? tamsulosin 0.4 mg capsule ? ciprofloxacin 500 mg table t Discussion Note: None recorded.Patient educational handouts: No information available. Plan of Care Patient Instructions reduce irbesartan-hct to 1/2 tab da merced Increase metoprolol to 1.5 tab daily start tamsulosin 0.4 mg [address] dinner- Go to lab today to run blood work Monitor temperature and BS, Tylenol is o k for fever, drink a lot of water and call if any issue- Reminders Provider Appointments Follow up Sharon Rasmussen, 11/13/2020 11:30AM Lab Urinalysis, [facility] - Internal Dipstick 09/27/2020 Medicine ? BMP, Serum or [facility] Plasma 09/27/2020 (Lab) ? CBC W/ Manual [facility] Diff 09/27/2020 (Lab) ? Hepatic Function [facility] Panel, Serum 09/27/2020 (Lab) ? PSA, Serum or [facility] Plasma 09/27/2020 (Lab) ? CK (Creatine [facility] Kinase), Total, Serum 09/27/2020 (Lab) ? Magnesium, Serum [facility] or Plasma 09/27/2020 (Lab) ? TSH + Free T4, [facility] Serum 09/27/2020 (Lab) ? Erythrocyte [facility] Sedimentation Rate by 09/27/2020 (Lab) Westergren Method ? C Reactive [facility] Protein, QN, Serum or 09/27/2020 (Lab) Plasma ? Urinalysis, [facility] - Internal Dipstick 09/27/2020 Medicine ? Culture, Blood [facility] 09/27/2020 (Lab) ? Culture, Urine [facility] 09/27/2020 (Lab) ? Hemoglobin S [facility] (Hbs), Presence, Blood 09/27/2020 (Lab) ? Hemoglobin (Hb) [facility] Electrophoresis, Blood 09/27/2020 (Lab) Referral None recorded. ? ? Procedures None recorded. ? ? Surgeries None recorded. ? ? Imaging None recorded. ? ? Medications Name Start Date ? ? amlodipine [...] propionate 50 mcg/actuation nasal spray,fatima spension ? [place] 2 sprays twice a day by intranasal [...] is medically necessary. 09/03/19-Called into [place] at [facility] with 3 refills Linzess 290 [...] BMI Blood Pressure 5 ft 8.5 in 225 lbs 33.7 kg/m2 124/80 mm[Hg] Results Lab Results Date Name Specimen Result Interpretation Description Value Range Status Address ? 09/27/2020 CBC W/ WB Normal Wbc 7.8 4.8-10.8 Final [facility] age Manual Diff 10^3/mm^3 10^3/mm^3 Hospital (Lab): [facility] ? ? WB Normal Rbc 5.71 4.20-5.90 Final [facility] 10^6/mm^3 10^6/mm^3 Hosp ital (Lab): [address] [facility] ? ? WB Normal Hgb 14.0 g/dL 13.5-17.5 Final [facility] age g/dL Hospital (Lab): [facility] ? ? WB Normal Hct 42 % 40-50 % Final [facility] Hospital (Lab): [address] [place] [address] ? ? WB Low Mcv 73.9 fL 80.0-97.[address] [facility] Hospital (Lab): [facility] ? ? WB Low Mch 24.5 pg 27.5-32.[address] [facility] pg Hospital (Lab): [address] [place] [address] ? ? WB Normal Mchc 33 g/dL 33-36 g/dL Final [facility] Hospital (Lab): [facility] ? ? WB High Rdw 14.9 % 11.6-14.8 [facility] ? ? WB High Platelet 434 150-400 Final [facility] e s 10^3/mm^3 10^3/mm^3 Hosp ital (Lab): [facility] ? ? WB Normal %Neutrop 59 % 40-75 % Final [facility] Hospital (Lab): [facility] ? ? WB Normal %Band 1 % 0-5 % Final [facility] Hospital (Lab): [address] [place] [address] ? ? WB Normal %Lymphoc 24 % 20-45 % [facility] (Lab[facility] [address] [place] [address] ? ? WB Normal %Monocyt 9 % 2-10 % Final [facility] (Lab): [address] [place] [address] ? ? WB Normal %Eosinop 3 % 1-6 % Final [facility] Hospital (Lab): [address] [place] [address] ? ? WB ? %Atypica 2 % ? Final [facility] l Lymph Hospital (Lab): [address] [place] [address] ? ? WB ? %Metamye 1 % ? Final [facility] locyte Hospital (Lab): [address] [facility] ? ? WB ? %Myelocy 1 % ? Final [facility] te Hospital (Lab): [address] [place] [address] ? ? WB Normal Platelet adequate adequate Final [facility] (Lab): [address] [place] [address] 09/27/2020 Hepatic P Normal Alt 61 U/L 16-63 U/L Final [facility] Panel, Serum (Lab ): [address] [place] [address] ? ? P Normal Ast 19 U/L 15-37 U/L Final [facility] Hospital (Lab): [address] [place] [address] ? ? P Normal Alkp 83 U/L 41-108 U/L Final [facility] (Lab): [address] [place] [address] ? ? P Normal Tbil 0.4 mg/dL <=1.2 Final [facility] mg/dL Hospital (Lab): [address] [place] [address] ? ? P Normal Dbil 0.10 mg/dL 0.00-0.20 Final [facility] mg/dL Hospital (Lab): [address] [place] [address] ? ? P Normal Tp 8.2 g/dL 6.4-8.2 Final [facility] g/dL Hospital (Lab): [address] [place] [address] ? ? P Normal Alb 4.2 g/dL 3.4-5.0 Final [facility] g/dL Hospital (Lab): [address] [place] [address] ? ? P ? Glob 3.99 mg/dL ? Final [facility] (Lab): [address] [place] [address] 09/27/2020 TSH + Free P Normal Tsh 0.946 mIU/mL 0.340-3.74 Final [facility] T4, Serum 0 mIU/mL Hospi lilia (Lab): [address] [place] [address] 09/27/2020 C Reactive P Normal Crp 0.80 mg/dL <0.90 Final [facility] Protein, QN, mg/dL Hosp ital Serum or (Lab): 9 0 Plasma [facility] 09/27/2020 CK (Creatine P Normal Ck 159 U/L 39-308 U/L Fi nal [facility] Kinase), Hospital Total, Serum (Lab ): [address] [place] [address] 09/27/2020 BMP, Serum P Normal Glu 94 mg/dL 70-100 Final [facility] or Plasma mg/dL Hospita l (Lab): [address] [place] [address] ? ? P Normal Bun 17 mg/dL 7-18 mg/dL Final [facility] (Lab): [address] [place] [address] ? ? P High Creat 1.35 mg/dL 0.70-1.30 Final [facility] mg/dL Hospital (Lab): [address] [place] [address] ? ? P Normal Na 142 mEq/L 136-[address] [facility] mEq/L Hospital (Lab): [address] [place] [address] ? ? P Normal K 4.1 mEq/L 3.5-5.[address] [facility] mEq/L Hospital (Lab): [address] [place] [address] ? ? P Normal Cl 102 mEq/L 98-107 Final [facility] mEq/L Hospital (Lab): [address] [place] [address] ? ? P Normal Co2 25 mEq/L 21-31 Final [facility] mEq/L Hospital (Lab): [address] [place] [address] ? ? P Normal Ca 9.2 mg/dL 8.5-10.1 Final [facility] ge mg/dL Hospital (Lab): [address] [place] [address] ? ? P ? Agap 18.8 ? Final [facility] calculation Hospi lilia (Lab): [address] [place] [address] ? ? P ? Bn/cr 12.4 ratio ? Final [facility] Hospital (Lab): [address] [place] [address] ? ? P ? Egfraa 67.26 ? Final [facility] Hospital (Lab): [address] [place] [address] ? ? P ? Egfrnaa 55.50 ? Final [facility] Hospital (Lab): [address] [place] [address] 09/27/2020 Magnesium, P Normal mg 2.2 mg/dL 1.8-2.4 Final [facility] Serum or mg/dL Hospital Plasma (Lab): [address] [facility] 09/27/2020 Erythrocyte WB High Esr 32.00 mm/HR 0.00-15.00 Final [facility] mm/HR Hosp ital n Rate by (Lab): [address] [facility] 09/27/2020 PSA, Serum S High PSA-D 5.55 NG/mL <4.00 Final [facility] or Plasma NG/mL Hospita l (Lab): [address] [place] [address] 09/27/2020 Culture, U ? Usour random ? Final [facility] Urine Hospital (Lab): [address] [place] [address] ? ? U ? Culresul no growth at ? Final [facility] t 48HR Hospital (Lab): [address] [place] [address] 09/27/2020 Culture, WB ? Bdcult no growth ? Final [facility] Blood after 5 days Hosp ital (Lab): [address] [place] [address] 09/27/2020 Urinalysis, ? Appearan Slightly ? ? [facility] - Dipstick ce [facility] Internal Medicine: [address] [place] [address] ? ? ? Glucose Negative ? ? [facility] - Internal Medicine: [address] [place] [address] ? ? ? Bilirubi Negative ? ? [facility] - n Internal Medicine: [address] [place] [address] ? ? ? Ketones Negative ? ? [facility] - Internal Medicine: [address] [place] [address] ? ? ? Specific 1.03 ? ? [facility] - [place] [facility]: [address] [place] [address] ? ? ? Blood Trace ? ? [facility] - Internal Medicine: [address] [place] [address] ? ? ? Ph 5.0 ? ? [facility] - Internal Medicine: [address] [place] [address] ? ? ? Protein Trace ? ? [facility] - Internal Medicine: [address] [place] [address] ? ? ? Urobilir Normal ? ? [facility] - ubin Internal Medicine: [address] [place] [address] ? ? ? Nitrates positive ? ? [facility] - Internal Medicine: [address] [place] [address] ? ? ? Leukocyt Negative ? ? [facility] - es Internal Medicine: [address] [place] [address] 09/27/2020 Urinalysis, Urine ? Appearan Slightly ? ? Rh - Dipstick ce [facility] Internal Medicine: [address] [facility] ? ? Urine ? Glucose Negative ? ? [facility] - Internal Medicine: [address] [facility] ? ? Urine ? Bilirubi Negative ? ? [facility] - n Internal Medicine: [address] [facility] ? ? Urine ? Ketones Negative ? ? [facility] - Internal Medicine: [address] [facility] ? ? Urine ? Specific 1.03 ? ? [facility] - [place] [facility]: [address] [facility] ? ? Urine ? Blood Negative ? ? [facility] - Internal Medicine: [address] [facility] ? ? Urine ? Ph 5.0 ? ? [facility] - Internal Medicine: [address] [facility] ? ? Urine ? Protein Negative ? ? Rh - Internal Medicine: [address] [facility] ? ? Urine ? Urobilir Normal ? ? [facility] - ubin Internal Medicine: [address] [facility] ? ? Urine ? Nitrates negative ? ? [facility] - Internal Medicine: [address] [facility] ? ? Urine ? Leukocyt Negative ? ? [facility] - es Internal Medicine: [address] [facility] Allergies Code Code System Name Reaction Severity Onset Ujeptyr-fsf-vih Myalgias (Muscle Moderate 10/2012 Reductase Pain) Inhibitors 3712716 RxNorm Apple Anaphylaxis ? ? Nut - Unspecified Anaphylaxis ? ? Shirley ? ? ? NKDA ? ? ? [...] you have a medical power of N family law attorney? Are you isolating or N quarantining [...] so, document vaccination in Vaccine Module in [place]) Daily caffeine consumption: mild Notes: 1 cup [...] fall? N Have you travelled outside of [facility] in the past 14 days? Have you [...] alcohol consumption: none What is your occupation? 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 Past Encounters 09/27/2020 Acute Injury of Kidney; Mass of Hip Elizabeth on; Hypertensive Disorder; Dyspnea on Exertion; Fever; Acute Prostatitis Cecy Rasmussen MD: [address] [place] [id number], Ph. [phone] History of Present Illness Note: Reason for Visit/Add'l information:
<div>OFFICE: hospital f.u from [facility] for fever SAUD, (Kidney).

Medication Reconciliation source: {{Patient * caret yolette spouse }} .Conducted by TAO RITCHIE/ relying on {{recall only* pill bottles patient's med list hospital discharge list rehab facility discharge list [facility] med list others }}. Info seems {{reliable* not reliable}}.

Were there any discrepancies? {{ No* Yes}}. If yes, then list- no

Medications completed due to end of course if any - no

Have you been seen by another provider, had an ER visit or hospitalization since our last visit here on08/09/2020 : Yes, [facility] for fever.

And have any Medications been added, stopped or adjusted since last visit? no

Provider HPI </div><div>
</div><div&gt ;Patient had hip surgery 1 month ago, surgery went well. 3 days prior to presentation to ED on 09/19/20 , pt had mild dysuria and hip discomfort. Reports hip discomfort has been all month and it is continuing to improve. Also had constitutional symptoms including myalgia, weakness, and chills. Presented in ER febrile. He defervesced overnight, he did have SIRS-like reaction which responded to IV fluid. Urinalysis mildly positive, there was a 4x3 collection outside the hip seen by CT. Ortho consulted, aggressive IV therapystarted. Pt improved quickly, acute kidney injury resolved with just IV fluid. The source remains unclear, urine grew out negative. Ortho recommended no antibiotics at discharge. They did not re-start ARB/hydrochlorothiazide, pt will check BP at home and if it is greater than 140 he will restart med. DC home on 09/21/20-
</div><div>He is here with .</div><div>
</div><div>Patient reports he is doing about the same as when he arrived to the ER. Reports he is voiding in small amounts, , MILD DYSURIA , His urine is dark but reports it is improved because when in the hospital it was the color of cranberry juice. Reports he is very concerned abouthis kidneys and his urination has changed since the SAUD diagnosis. He is trying to drink fluids. Reports his fever has come back, the day after discharge, it ranges from 99-101 every day with Tylenol every 6 hours ATC. No chills. No abdominal/back pain. No hematuria that he can see. Reports his hip isdoing fine with no s/s infection. </div><div>
</div><div>Last fever was yesterday- DESCRIBES pain and burning when urinates and the sensation is all the way deep to prostate - he leaks at times, he needs to strain at times - he may have had farah shortly during sugery but it was not in for too long as he does not recall seeing upon wakening- </div><div>Also pain in jose low back also shaking chills -Highest temp 103.9 before ED visit- Highest TEMP after discharge 101 yesterday in am - today temp. is nl-</div><div>No hematuria- </div><div>Had nausea but it resolved- no vomiting- Had diarrhea but resolved-</div><div>Had wound discharge on 09/19/20 from hip but no longer since - No rash- </div><div>Noticed chest pain is short lived when bending forward - Breathing is nl and no cough- Using cane to walk-</div><div>He has resumed arb/hctz at home on his own since discharge , it was on hold at hospital due to low bp and hi HR - </div><div>Currently BP is ok systolic but DBP 80-97- HR athome >100- </div><div>Had stopped MTX for surgery but now is back on it- Remicadeinfusion is on hold still - </div><div>He has been off pulmicort as breathing is better and using ventolin qod- </div><div>BS has not been checked since recent hospital stay butwas 80-90- </div><div>Lost 13 lbs in last 2m-</div><div>
</div&gt ;<div>
</div><div>Review of CT A/P/C WITH CONTRAST : MILD bladder wall thickening non specific- min atelactasis in RML and LLL- post op left hip with subcut. Anterolateral proximal hip and thigh area hypodense 4x3x7 cm, possible seroma /liquified hematoma or or other process, but no gas bubble- lung CT nl </div><div>
</div><div>Drinking a lot of water since discharge</div>Review of Systems: ROS as noted in the [...] Inspec tion and Palpation: soft, non-distended, no tenderness , no guarding, no masses, no CVA tenderness Rectal: Anus, Perineum, Rectum: no h emorrhoids, no fissures, no masses; increased tone, tender mildl y enlarged prostate- brown stools-prostate massage was tender and post massage urine dip shows 1+ nitrate which was absent prior to massage Musculoskeletal:: Joints, Bones, and Muscles: no tenderness, limited ROM. Extremities: no edema, no va ricosities Skin: Inspection and palpation: ; left hip wound closed , clean and healed
--- OUTSIDE RECORDS SUMMARY | 2020-10-21 11:30 | XMS_ITS | Encounter Summary ---
:1970 Author Care Team Providers Name Role Phone Dr. Cecy Rasmussen Primary Care Provider [phone] Cecy Rasmussen (Direct) Primary Care Provider [phone] Dr. Cecy Rasmussen Referring Provider [phone] Ameya Kendrick Human Resources Project Manager [phone] [facility] Office Director Of Physical Therapy [phone] Reason for Visit Office 3 wk f/u IBS, HTN, syncope and pr eop for hip replacement Assessment and Plan Assessment Note Overall stable and will schedule a RTC in 2 wk f/u on HTN, FBM, to recheck BP before surgery 1. Pre-surgery evaluation Patient presents for pre-op ev aluation. History and physical exam indicates patient may proceed with KARTHIK , he had nl exam and EKG is normal - no exertional chest pain- Breathing is well contro lled- BP is slightly up despite starting amlodipine 2.5 mg 3 wks ago - we wiill increase to 5mg - recheck in 2wks- Counselled patient that he should be abl e to proceed with surgery- see below recommendations- See below re instructions ? electrocardiogram 2. Irritable bowel syndrome Diagnosed by GI to have IBS an d malabsorption syndrome -he has constipation which had improved on Linzess 290 mcg qd and citrucel daily with colace daily and miralax prn 3. Hypertensive disorder pt is on irbesartan 300-HCTZ 1 2.5 mg, 1 tablet in the morning and amlo 2.5 mg qd- bp is still elevated and in view of upcoming surgery , we will aim at tighter control and inc. amlodipine to 5 mg qd in pm , He is compliant with medi cations and cpap use -monitor in 2 wk on higher amlodipine ? amlodipine 5 mg tablet 4. Syncope Patient had a syncopal episode in 2018, occurred while laughing and coughing and extensive work-up at the time which was negative. Recurrent syncope in last month as he go t up from bed and then fell after voiding -- work up again included ziopatch , MRI and neck US and echo and all negative- - It was felt to be vasovagal or drug nasrin amelia - he was taken off lyrica 75 mg - no recurrent events since 5. Chronic post-traumatic stress disorder chronic PTSD due to many child moreno adversity ASSOCIATED with hi chronic stress and somatic diseases - We discussed previously impact of ACEs on chronic stress and chronic disease -he has been doing well with daily breathing and rela xation technique/meditation/body scan session - he feels it helps and will continue that along with duloxetine - 6. Obstructive sleep apnea syndr ome dx in Summer 2016 - Pt has bee n compliant with PAP use nightly and should continue perioperatively 7. Reactive airway disease pt with known reactive airway disease, currently doing better and on his inhalers pulmicort 2 bid and ventolin pr n 8. Spinal stenosis of lumbar reg ion hx of LBP and spinal + NF sten osis on MRI- has hx of radicular syx and syx with walk or stand but not with sitting - suggestive of pseudoclaudication- no neuro deficit-he was evaluated by orth o and spine surgeon and is not a shandra te for spine surgery but they recommend hip surgery to help with load on spine He would like to continue celebrex 200 m g daily which provided some relief and is tolerated and tizanidine at bedtime to take for muscle relaxant - He did benefit from pregabalin/lyrica 75 mg bid but this was stopped due to syncope- Pt would like to retry a low small dose of lyrica which could be better tolerated - i think this makes sense and will try pregabalin 25 mg po qhs once daily ? pregabalin 25 mg capsule 9. Type 2 diabetes mellitus Patient reports being complian t with Trulicity. This is not known to cause any hypoglycemia and he has been on it for a while. His last A1C is 6.% - Pt can be continued on that perioperatively - it is once weekly - Referral to weight and wellness center w as placed but on hold due to COVID - 10. 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 I also did recommend dental check up bef ore surgery as he does not have any dental care at all and heading for KARTHIK and is immunocompromised Discussion Note: None recorded.Patient educational handouts: No information available. Plan of Care Patient Instructions Today we made these changes for you [...] medicines need to be cleared by Dr Adkins - Call his office and get instructions o n whether you should hold them and how l marguerite in advance you need to do so - Also call marine engineering teacher and let her know you have surgery and what Dr Adkins RECOMMENDED- Follow their recommendations- On the morning of surgery, take only the se medication with a sip of water : irbesartan -HCT and nothing else- Call if you have any further concerns or questions and let us keep your next follow up as scheduled. Make sure you use cpap perioperatively Reminders Provider Appointments Follow up Sharon Rasmussen, 11/13/2020 11:30AM Lab None recorded. ? ? Referral None recorded. ? ? Procedures None recorded. ? ? Surgeries None recorded. ? ? Imaging Electrocardiogram [facility] - Internal 07/25/2020 Medicine Medications Name Start Date ? ? amlodipine [...] propionate 50 mcg/actuation nasal spray,fatima spension ? [place] 2 sprays twice a day by intranasal [...] is medically necessary. 09/03/19-Called into [place] at [facility] with 3 refills Linzess 290 [...] BMI Blood Pressure 5 ft 8.5 in 238.2 lbs 35.7 kg/m2 150/84 mm[Hg] Results Lab Results None recorded. Allergies Code Code System Name Reaction Severity Onset [id number]-mfg-[id number] Myalgias (Muscle Moderate 10/2012 Reductase Pain) Inhibitors [id number] RxNorm Apple Anaphylaxis ? ? Nut - Unspecified Anaphylaxis ? ? [place] ? ? ? NKDA ? ? ? 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 Are you isolating or N quarantining because [...] so, document vaccination in Vaccine Module in Winter) Daily caffeine consumption: mild Notes: 1 cup of coffee in the morning. Quit smoking at age? 1 Do you have a life line? N In the 14 days before symptom N onset, have you had close contact with a person who is under investigation for COVID-19 while that person was ill? What was the date of your most 10/04/2020 recent tobacco screening? Do you use sunscreen routinely? Y Do you have an advanced N directive? Do you or have you ever used Never used electronic e-cigarettes or vape? cigarettes What is your exercise level? Occasional Notes: W alking In the 14 days before symptom N onset, have you had close contact with a laboratory-confirmed COVID-19 while that case was ill? How many years have you smoked 0 tobacco? Recurrent fall? N Domestic violence: N Have you travelled outside of [facility] in the past 14 days? 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 Past Encounters 07/25/2020 Pre-surgery Evaluation; Irritable Bowel Syndrome; Hypertensive Disorder; Syncope; Chronic Post-traumatic Stress Disorder; Obstructive Sleep Apnea Syndrome; Reactive Airway Disease; Spinal Stenosis of Lumbar Region; Type 2 Diabetes Mellitus; Arthritis Cecy Rasmussen MD: [address] [place] [phone], Ph. [phone] 07/05/2020 Administration of Influenza Vaccine; Irr itable [...] Diabetes Mellitus; Uveitis; Vitamin D Deficiency Cecy Rasmussen MD: [address] [place] [phone], Ph. History of Present Illness Note: Reason for Visit/Add'l information: Office 3 wk f/u IBS, HTN, syncope- and also needs preop<div>
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 Info seems {{reliable* not reliable}}.

Were there any discrepancies? {{ No* Yes}}. If yes, then list-n/a

Medications completed due to end of course if any -n/a

Have you been seen by another provider, had an ER visit or hospitalization since our last visit here on : no

And have any Medications been added, stopped or adjusted since last visit?n/a

Provider HPI</div><div>
</d iv><div>
</div><div>
</div><div& gt;
</div><div>This patient present today for pre-op. clearance in anticipation of left KARTHIK surgery on 08/22/[address] Otero at [facility]. This note will be forwarded to the orthopedist along witha copy of the EKG.

The patient report progressive left hip pain in setting of known nonsurgical spinal stenosis , inflammatory arthritis and fibromyalgia- he was evaluated by ortho and spine surgeons and was recommended to proceed with KARTHIK to reduce burden of disease and pain which is limiting- Pt plans to proceed and is here for preop- </div><div>
</div><div>

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 Specifically no chest pain , dyspnea, palpitations, dizziness. No seizures. This has been limited lately due to pain in hip and so not exerting much -

The patient denies recent hospitalization- He had however a syncopal event in 06/2020 and had a work up which was all negative including nl MRI brain, manager concrete and echocardiogram- it was felt vasovagal or an adverse effect to lyrica 75mg which he stopped - </div><div>
The patient has the above comorbidities as lis monty in Problem list. This includes HTN, chronic PTSD, DM well controlled, Reactive airway disease, ASHLEY using cpap, and IBS- Pt is not checking BS or BP at home- recent A1C 6%-

Med list reviewed as well. The orthopedist did not recommend holding any meds. He is not on any blood thinn ers.

The patient denies excessive bleeding or bruising.

Patient denies any complications from prior surgeries/procedures/anesthesia. Last one in 01/2016 was arthroscopic shoulder sx.

Patient denies recent infection, fever, dysuria, cough or sorethroat.</div><div>
</div><div>Pt's BP has not been controlled and he was started on amlodipine 2.5 mg once daily take in pm 3 wks ago and reading is better - He has been off lyrica since last visit and no further syncope, dizziness- </div><div>Pt's IBS has improved -He did increase linzess to 290 mcg take once daily 3 wks ago along with colace daily 100 mg-This is helping quite a bit and bowels are better , no s.e- </div><div>
</di v><div>
</div><div>
</div><div&g t;
</div>Review of Systems: ROS as noted in the HPI Review of Systems None recorded. Physical Exam ? [facility] General Adult Exam Reported By: Patient Constitutional: General Appearance: well-dev eloped, obese. Level of Distress: NAD. Ambulation: limited ambulati on Psychiatric: Orientation: to time, to [facility] ce, to person Head: Head: normocephalic, atrauma tic Lungs: Respiratory effort: no dyspn ea. Auscultation: breath sounds normal, good air movement, no wheezi ng, no rales/crackles, no rhonchi Cardiovascular: Apical Impulse: not displace d. Heart Auscultation: RRR, normal S1, normal S2, no murmurs Abdomen: Bowel Sounds: normal. Inspec tion and Palpation: soft, non-distended, no tenderness , no guarding, no rebound tenderness, no masses, no CVA tenderness Musculoskeletal:: Extremities: no edema
--- OUTSIDE RECORDS SUMMARY | 2020-10-21 11:30 | XMS_ITS | Encounter Summary ---
:1970 Author Care Team Providers Name Role Phone Dr. Cecy Rasmussen Primary Care Provider [phone] Cecy Rasmussen (Direct) Primary Care Provider [phone] Dr. Cecy Rasmussen Referring Provider [phone] Ameya Kendrick DO Jig And Fixture Repairer [phone] [facility] Sales Driver [phone] Reason for Visit 2 wk f/u on HTN, FBM, before surgery Assessment and Plan Assessment Note RTC 3-month follow-up on hypertensi on, fibromyalgia, reactive airway disease and diabetes, labs prior 1. Fibromyalgia Patient reports his bodily ach es have somewhat improved on low-dose Lyrica 25 mg in addition to duloxetine and Kady brex, breathing and meditation for stress management and gentle stretching-using t izanidine as needed. We will hold off increasing Lyrica further for concern ab out possible recurrent syncope 2. Hypertensive disorder pt is on irbesartan 300-HCTZ 1 2.5 mg, 1 tablet in the morning and amlo 5 mg qd- bp is better at home however here his diastolic blood pressure is 86. He thinks this may be a fluke. He would li ke a chance to check BP at home few time s and call back with a log. We will still be able to do that before his surgery. Also his heart rate was slightly up, patient tends to get anxious quick and have a startled heightened response to any an xiety or stress. Await his call, if BP or heart rate are still elevated, then we can consider or changing to a beta- ranjana or diltiazem for both heart rate and BP control - He is compliant with medications and cp ap use -monitor in 2 wk on higher amlodipine ? CMP, serum or plasma 3. Type 2 diabetes mellitus Patient reports being complian t with Trulicity. This is not known to cause any hypoglycemia and he has been on it for a while. His last A1C is 6.% - Pt can be continued on that perioperatively - it is once weekly - Referral to weight and wellness center w as placed but on hold due to COVID - ? HbA1c (hemoglobin A1c), bl ood Discussion Note: None recorded.Patient educational handouts: No information available. Plan of Care Patient Instructions continue same for now and check BP and HR twice daily and drop off log in 1 wk - we will consider possibly changing /will ng beta ranjana or different calcium channel ranjana Reminders Provider Appointments Follow up 11/13/2020 Sharon Rasmussen MD 11:30AM Lab HbA1C 10/28/2020 [facility] (Hemoglobin a1C), (Lab) Blood ? CMP, Serum 10/28/2020 [facility] or Plasma (Lab) Referral None ? [...] propionate 50 mcg/actuation nasal spray,fatima spension ? [place] 2 sprays twice a day by intranasal [...] is medically necessary. 09/03/19-Called into [place] at [facility] with 3 refills Linzess 290 [...] BMI Blood Pressure 5 ft 8.5 in 136/86 mm[Hg] Results Lab Results None recorded. Allergies Code Code System Name Reaction Severity Onset Xpuxaks-obl-usb Myalgias (Muscle Moderate 10/2012 Reductase Pain) Inhibitors [id number] RxNorm Apple Anaphylaxis ? ? Nut - Unspecified Anaphylaxis ? ? [place] ? ? ? NKDA ? ? ? [...] decompression 07/21/2004 Appendectomy Information not avai lable 07/12/2020 MRI, Brain, W/o Contrast [facility] - Radiology [address] [place] [address] (Work Place) 07/25/2020 Electrocardiogram [facility] - Internal Medic ine [address] [place] [address] [phone] ([address]) Vaccine List Vaccine Type [...] you have a medical power of N earrings fabricator? Are you isolating or N quarantining because [...] fall? N Have you travelled outside of [facility] in the past 14 days? 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 Past Encounters 08/09/2020 Fibromyalgia; Hypertensive Disorder; Typ e 2 Diabetes Mellitus Cecy Rasmussen MD: [address] [place] [phone], Ph. [phone] 07/25/2020 Pre-surgery Evaluation; Irritable Bowel Syndrome; Hypertensive Disorder; Syncope; Chronic Post-traumatic Stress Disorder; Obstructive Sleep Apnea Syndrome; Reactive Airway Disease; Spinal Stenosis of Lumbar Region; Type 2 Diabetes Mellitus; Arthritis Cecy Rasmussen MD: [address] [place] [phone], Ph. History of Present Illness Note: Reason for Visit/Add'l information: 2 wk f/u on HTN, FBM, before surgery.

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 Info seems {{reliable* not reliable}}.

Were there any discrepancies? {{ No* Yes}}. If yes, then list- no

Medications completed due to end of course if any - no

Have you been seen by another provider, had an ER visit or hospitalization since our last visit here on 07/25 : no

And have any Medications been added, stopped or adjusted since last visit? no

Provider HPI<div>
</div><div>BP is better at home , sometimes on low end with occ min dizziness on higher dose amlodipine 5 mg daily -we increase the dose on 07/25 as he was headed for surgery 08/22/2020- no edema or constipation with amlodipine higher dose</div><div>Additionally, he started back on lyrica 25 mg and feels FBM pain is better, sleep is good and no s.e and would like to continue that medication</div>Review of Systems: ROS as noted in the HPI Review of Systems None recorded. Physical Exam ? [facility] General Adult Exam Reported By: Patient Constitutional: General Appearance: well-dev eloped, obese. Level of Distress: NAD. Ambulation: limited ambulati on Psychiatric: Orientation: to time, to paul ce, to person Head: Head: normocephalic, atrauma tic Lungs: Respiratory effort: no dyspn ea. Auscultation: breath sounds normal, good air movement, no wheezi ng, no rales/crackles, no rhonchi Cardiovascular: Apical Impulse: not displace d. Heart Auscultation: RRR, normal S1, normal S2, no murmurs Musculoskeletal:: Extremities: no edema
[2020-10-21 11:31] VITALS: BP 146/94; PULSE 96; RESP 16; TEMP 36.7; O2SAT 100
--- NOTE | 2020-10-21 11:37 | ED.GENADUL_ITS ---
Discharge Plan Disposition Patient Disposition: HOME Condition: Stable Discharge Details Clinical Impression: Acute prostatitis Primary Care Provider: Cecy Rasmussen ED Provider: Cinda Castañeda Home Meds and New Rx's Prescriptions: New ciprofloxacin HCl 500 mg tablet 500 mg PO BID 28 Days Qty: 56 RF: 0 Continued (DME) arm brace [Wrist Brace Medium] 1 EACH misc 2 ea Miscellaneous HS Qty: 2 RF: 0 acetaminophen 325 MG tablet 325 mg PO PRN RF: 0 Systane (PF) 1 EACH dropperette 1 ea Ophthalmic DAILY RF: 0 topiramate 200 MG tablet 200 mg PO HS Qty: 90 RF: 3 rizatriptan [Maxalt] 5 MG tablet 1 - 2 mg PO ONCE Qty: 12 RF: 5 esomeprazole magnesium 40 MG capsule,delayed release(DR/EC) 40 mg PO DAILY RF: 0 epinephrine 0.3 MG/SYR auto-injector 1 ea IM PRN PRNRF: 0 Veramyst 10 GM spray,suspension 1 spray PRN PRNRF: 0 ibuprofen 600 MG tablet 600 mg PO Q6H PRN (Reason: Pain) Qty: 20 RF: 0 albuterol sulfate [ProAir HFA] 200 PUFF HFA aerosol inhaler PRNRF: 0 fluticasone propionate [Flovent Diskus] 250 MCG blister with device RF: 0 amlodipine 5 mg tablet 5 mg PO DAILY RF: 0 tamsulosin 0.4 mg capsule 0.4 mg PO DAILY RF: 0 irbesartan-hydrochlorothiazide 300-12.5 mg tablet 1 tab PO DAILY RF: 0 metoprolol succinate 25 mg tablet extended release 24 hr 1.5 mg PO DAILY RF: 0 colchicine 0.6 mg tablet 0.6 mg PO DAILY RF: 0 Trulicity 1.5 mg/0.5 mL pen injector 1.5 mg SUBCUT QWEEK RF: 0 Discharge Instructions Instructions: Prostatitis (ED) Additional Instructions: I am concerned that your prostatitis is returning. I have prescribed you another course of ciprofloxacin. This has been sent to your pharmacy. Please take the antibiotics as prescribed. Please begin probiotic. I would like you to follow-up with your primary care this week. Please discuss duration of your antibiotics further with him at that time. If you develop fever/chills, increased pain or other new/worsening symptoms please seek care urgently once again. Please also follow-up with Dr. Dow regarding your hip discomfort. Referrals: Cecy Rasmussen [Primary Care Provider] - Discharge Data Discharge Date/Time-TO BE ENTERED AT DEPARTURE: 10/21/20 15:28 Medical Decision Making Patient is a pleasant 50-year-old male presenting to chief complaint of left flank pain that radiates around towards his groin on the left side. Patient had a total hip replacement on 08/22/2020 at [facility] with Dr. Dow. Patient had a routine postoperative course initially. Was then subsequently readmitted on 09/18/2020. At that time, patient was found to be febrile for a brief period of time. There was question if he may have developed a superficial postoperative incisional infection versus prostatitis. Patient did not grow out any bacteria on his urine culture. However, he was tender with prostate exam. Patient was admitted for 4 days treated with IV antibiotics. Was discharged initially without antibiotics. However, was then seen by his primary care and patient was found to have persistent prostate tenderness. He was subsequently treated with ciprofloxacin for 2 weeks. Patient reports that he stopped the antibiotics on 10/12/2020. He was not long after this that patient reports his symptoms began to slowly return. However, today the symptoms were much more significant. Endorses left flank pain that radiates down towards the left side of his groin. States that this does cause him to have increased hip discomfort although he denies any incisional pain. Does not have any fever or chills. States he has had increased frequency and urgency of urination. Has not noticed any penile discharge. Patient is in a monogamous relationship. Patient is concerned that this feels similar to when he began developing prostatitis last time. j past medical history is pertinent for migraines, 2 diabetes, peripheral neuropathy, GERD, hyperlipidemia, hypertension, ASHLEY. Patient also reports that she has autoimmune disorder. On exam, patient appears nontoxic. Blood pressure is elevated at 146/94, heart rate 96. Patient is afebrile, vital signs otherwise within normal limits. Patient does have some left-sided CVA tenderness. Abdomen is benign. Incision looks to be healing well with no evidence of infection. Patient does have tenderness on prostate exam. However, he did report that the exam typically causes no discomfort and is not a severe as when he had prostatitis recently. Differential at this time is broad. Consider nephrolithiasis, pyelonephritis, pancreatitis, diverticulitis, prostatitis, hip infection, UTI. Plan for [facility] labs. Will obtain CT with and without abdomen to evaluate for stone as well as possible infectious etiology in the abdomen. Discussed this plan with the patient who is in agreement. Labs reviewed. No leukocytosis. Stable H&H. Patient ESR is elevated at 46. Lactate 1.5. CRP 0.3. CMP without significant abnormality. Urine significant for elevated specific gravity. Patient is receiving hydration currently. Trace leukocyte esterase but otherwise no significant abnormality. Plan to obtain urine care. FINDINGS: Lungs: Bibasilar atelectasis Liver: Normal. No mass. Gallbladder and bile ducts: Normal. No calcified stones. No ductal dilation. Pancreas: Normal. No ductal dilation. Spleen: Normal. No splenomegaly. Adrenal glands: Normal. No mass. Kidneys and ureters: There is no evidence of renal or ureteral calcifications. Stomach and bowel: Diverticulosis of the rectosigmoid. No sakina diverticulitis. Appendix: No evidence of appendicitis. Intraperitoneal space: Unremarkable. No free air. No significant fluid collection. Vasculature: Unremarkable. No abdominal aortic aneurysm. Lymph nodes: Unremarkable. No enlarged lymph nodes. Urinary bladder: Unremarkable as visualized. Reproductive: Unremarkable as visualized. Bones/joints: Left total hip replacement Soft tissues: Unremarkable. IMPRESSION: No acute process Discussed this finding with the patient and his . Patient is immunosuppressed. He reports that he is on methotrexate for this. I am wondering at this point, particularly with the prostate tenderness and worsening symptoms, prostatitis with recurrent. If he is immunosuppressed, perhaps a 2- week course initially patient was on was not along the course. Patient will be prescribed a longer course of levofloxacin. However, I did advise that he shoul d follow-up with his primary care to discuss the length of antibiotic treatment further. Patient will begin a probiotic. I encouraged water intake. Return precautions were discussed. I also advised the need for consult there is a orthopedic surgeon for the possibility of your recent surgery. All questions and concerns were addressed with patient symptoms plan HPI General Mode of arrival: ambulatory . Date/Time Provider Initiated Documentation: 10/21/20 11:36 . Limitations to Documentation: no limitations . Information obtained by: patient, family (Accompanied by ) and RN notes reviewed . History of Present Illness 50 year old M presents to the emergency department with the chief complaint of Left flank pain, described as moderate, with intensity rated at 8. Quality is described as aching, and is localized to the back (Left flank). Patient abdomen (Indicates pain wrapping around abdomen). Patient started experiencing this hour(s) and it has been constant. Immobilization improves symptom(s), Movement worsens symptoms . Patient notes no other symptoms.; denies cough, fever/chills, nausea/vomiting, rash, shortness of breath and weakness. Patient did receive the following treatments prior to arrival, none Related Data Home Medications Medication Instructions Recorded Confirmed Veramyst 1 spray PRN PRN 11/28/15 10/21/20 epinephrine 1 ea IM PRN PRN 11/28/15 10/21/20 esomeprazole magnesium 40 mg PO DAILY 11/28/15 08/24/17 ibuprofen 600 mg PO Q6H PRN #20 tab 04/05/17 10/21/20 arm brace [Wrist Brace Medium] #2 ea 06/03/17 albuterol sulfate [ProAir HFA] PRN 08/24/17 fluticasone propionate [Flovent 08/24/17 Diskus] Systane (PF) 1 ea OPHTHALMIC DAILY 10/08/17 10/21/20 acetaminophen 325 mg PO PRN tab-cap 10/08/17 10/21/20 topiramate 200 mg PO HS #90 tab-cap 11/13/17 rizatriptan [Maxalt] 1 - 2 mg PO ONCE #12 tab-cap 12/25/17 Trulicity 1.5 mg SUBCUT QWEEK 10/21/20 10/21/20 amlodipine 5 mg PO DAILY 10/21/20 10/21/20 ciprofloxacin HCl 500 mg PO BID 28 Days #56 tab 10/21/20 colchicine 0.6 mg PO DAILY 10/21/20 10/21/20 irbesartan-hydrochlorothiazide 1 tab PO DAILY 10/21/20 10/21/20 metoprolol succinate 1.5 mg PO DAILY 10/21/20 10/21/20 tamsulosin 0.4 mg PO DAILY 10/21/20 10/21/20 Previous Rx's Medication Instructions Recorded ibuprofen 600 mg PO Q6H PRN #20 tab 04/05/17 arm brace [Wrist Brace Medium] #2 ea 06/03/17 topiramate 200 mg PO HS #90 tab-cap 11/13/17 rizatriptan [Maxalt] 1 - 2 mg PO ONCE #12 tab-cap 12/25/17 ciprofloxacin HCl 500 mg PO BID 28 Days #56 tab 10/21/20 Allergies Allergy/AdvReac Type Severity Reaction Status Date / Time apple Allergy Unverified 02/19/18 09:09 nut - unspecified Allergy Unverified 02/19/18 09:09 General Stated Complaint: FlankPain EMILY: 3 Review of Systems Constitutional Constitutional: Reports as per HPI, Denies chills, Denies fatigue, Denies fever(s) and Denies headache(s) ENT Ears, Nose, Mouth, and Throat: Denies headache(s) Cardiovascular Cardiovascular: Reports as per HPI, Denies chest pain and Denies dyspnea Respiratory Respiratory: Reports as per HPI, Denies cough and Denies dyspnea Gastrointestinal Gastrointestinal: Reports as per HPI Genitourinary Genitourinary: Denies difficulty urinating, Reports flank pain, Denies penile discharge, Reports urinary frequency and Reports urinary urgency Musculoskeletal Musculoskeletal: Reports as per HPI and Reports back pain Integumentary/Breasts Skin/Breast: Reports as per HPI and Denies rash Neurologic Neurologic: Reports as per HPI and Denies headache(s) Endocrine Endocrine: Denies fatigue [facility] Medical History (Updated 10/21/20 @ 15:19 by CHRISTINE Lyle) Carpal tunnel syndrome, bilateral Chronic low back pain Chronic neck pain Diabetes type 2, controlled Diabetic peripheral neuropathy Fibromyalgia Gastroesophageal reflux disease Heart disease Hyperlipidemia Hypertension Migraine Obstructive sleep apnea Oral ulceration Osteoarthritis Uveitis of both eyes Vasovagal syncope Surgical History History of appendectomy History of shoulder surgery RIGHT SHOULDER Family History (Updated 05/18/18 @ 15:20 by Jo Vital LPN) Father Heart disease Mother Asthma Other Sickle cell anemia Social History Smoking/Tobacco Use Status: Never Smoking risk assessment performed?: Yes Alcohol Intake: never Drug use: Never Substance use type: does not use Household members: spouse and children 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 Do you feel safe at home: Yes Do you feel safe in your relationship?: Yes Exam Const General: cooperative, healthy appearing, comfortable, no acute distress and well developed Nutritional Appearance: well nourished and overweight Orientation: alert and awake [facility] Head: normal to inspection Mouth: moist mucous membranes Resp Effort & Inspection: normal respiratory effort, able to speak in complete sentences and no respiratory distress Auscultation: clear to auscultation bilaterally, no rales, no rhonchi and no wheezes Cardio Rate: regular rate Rhythm: regular rhythm Heart Sounds: S1 normal and S2 normal GI Inspection: normal to inspection Palpation: soft, no hepatosplenomegaly, not firm, no guarding, no hernias, no masses, not rigid and nontender Percussion: normal to percussion Auscultation: normal bowel sounds Rectal Exam: visual inspection normal, normal sphincter tone, prostate abnormal enlarged and tenderness Back/Spine/Pelvis Back: CVA tenderness (left sided) Skin General skin exam: no rashes or lesions noted Trauma: other (incision healing well from KARTHIK in August) Neuro General: patient alert and patient awake Cognition: normal cognition Speech: speech normal Gait: antalgic (ambulating with cane) Extrem General: normal to inspection, capillary refill normal, no joint enlargement, no pedal edema, no calf tenderness, abnormal gait (fantalgic) and other (incision healing well with no erythema, warmth, drainage, swelling) Psych Appearance: grossly normal and well kempt Mental Status: mental status grossly normal Speech and Movement: speech and movement normal Course Vital Signs Vital signs: Vital Signs Temperature 36.7 C 10/21/20 11:31 Pulse 96 H 10/21/20 11:31 Respiratory Rate 16 10/21/20 11:31 Blood Pressure 146/94 H 10/21/20 11:31 Pulse Oximetry 100 10/21/20 11:31 Temperature 36.7 C 10/21/20 11:31 Temperature Source Skin 10/21/20 11:31 Pulse 96 H 10/21/20 11:31 Respiratory Rate 16 10/21/20 11:31 Blood Pressure 146/94 H 10/21/20 11:31 Blood Pressure Position Sitting 10/21/20 11:31 Pulse Oximetry 100 10/21/20 11:31 Oxygen Delivery Method Room Air 10/21/20 11:31 Oxygen Flow Rate 0 10/21/20 11:31 Pain Level 8 10/21/20 11:31
--- NOTE | 2020-10-21 11:45 | DI.CT_ITS ---
EXAM: CT ABDOMEN PELVIS WO/W CLINICAL HISTORY: left flank pain, radiate to LLQ TECHNIQUE: COMPARISON: CT ABD PELVIS WO CONTRAST from 04/05/2017 FINDINGS: CT examination of the abdomen and pelvis was performed without contrast administration and then with bolus infusion of 100 cc of Omnipaque 350. Images obtained through the lung bases are unremarkable. Note is made of a left hip replacement. The liver appears normal with no evidence of a focal mass. Spleen is unremarkable in appearance.. Gallbladder and bile ducts are unremarkable. Pancreas is unremarkable in appearance. Adrenals appear normal bilaterally. Kidneys appear normal with no evidence of renal mass, hydronephrosis, or nephrolithiasis. There is n o evidence of ureterolithiasis. Urinary bladder is unremarkable. There is no evidence of abdominal or pelvic adenopathy. Abdominal aorta is of normal diameter and no major vascular abnormality is seen. Appendix is small or surgically resected. No evidence diverticulitis or bowel obstruction. No significant abdominal wall hernia seen. Impression: Negative CT examination of the abdomen and pelvis. RADIATION DOSE DELIVERED: 1,891.09mGy.cm Total DLP 1,891.09mGy.cm Total DLP DATA REPOSITORY: All CT scans at this facility are submitted to the National Radiology Data Registry (NRDR) Dose Index Registry (DIR) with the [employer] (ACR). RADIATION OPTIMIZATION: All CT scans at this facility use at least one of these dose optimization te chniques: automated exposure control; mA and/or kV adjustment per patient size (includes targeted exa ms where dose is matched to clinical indication); or iterative reconstruction.
[2020-10-21 12:08] LABS: Bilirubin Negative (Negative); Blood Negative (Negative); Clarity Clear (Clear); Glucose Negative (Negative); Ketones Negative (Negative); Leukocyte Esterase Trace (Negative); Nitrite Negative (Negative); Specific Gravity >= 1.030 (1.005-1.025); Urobilinogen 0.2 EU/dL (Up TO 0.2); pH 5.5 (5-8)
[2020-10-21] MEDS: Ondansetron 4 MG/2 ML VIAL IVP (12:10)
[2020-10-21 12:11] LABS: Lactate 1.5 mmol/L (0.6-1.4)
[2020-10-21 12:14] LABS: Abs Immature Grans 0.02 10^3/uL (0.0-0.06); Absolute Basophil Count 0.04 10^3/uL (0.0-0.2); Absolute Lymphocyte Count 3.55 10^3/uL (1.2-3.4); Absolute Monocyte Count 0.55 10^3/uL (0.1-0.8); Absolute Neutrophil Count 3.46 10^3/uL (1.2-6.7); Basophils % 0.5; Eosinophils % 3.8; HCT 42.6 % (40.0-50.0); HGB 13.6 g/dL (13.5-17.5); Immature Grans % 0.3; Lymphocytes % 44.8; MCH 24.3 pg (27.0-33.0); MCHC 31.9 % (32.0-36.0); MCV 76.2 fL (80-95); MPV 8.8 fL (8.0-11.0); Monocytes % 6.9; Neutrophils % 43.7; Nucleated RBC 0 %; Platelet Count 333 10^3/uL (130-400); RBC 5.59 10^6/uL (4.36-5.78); RDW 13.8 % (11.8-14.1); RDW-SD 37.7 fL; WBC 7.92 10^3/uL (4.4-10.8)
[2020-10-21 12:21] LABS: ESR 46 mm//hr (0-20)
[2020-10-21 12:22] LABS: Lipase 181 U/L (73-393)
[2020-10-21 12:27] LABS: ALT 51 U/L (16-63); AST 19 U/L (15-37); Alkaline Phosphatase 102 U/L (46-116); Anion Gap 10.1 mmol/L (3-11); BUN 15 mg/dL (7-18); Bilirubin, Total 0.4 mg/dL (0.2-1.0); C-Reactive Protein 0.36 mg/dL (0.0-0.3); CO2 26.9 mmol/L (21.0-32.0); CREATININE 1.1 mg/dL (0.70-1.30); Calcium 9.6 mg/dL (8.5-10.1); Chloride 105 mmol/L (98-107); Glucose 90 mg/dL (74-106); Potassium 3.6 mmol/L (3.5-5.1); Sodium 142 mmol/L (136-145); Total Protein 8.5 g/dL (6.4-8.2)
[2020-10-21 12:28] LABS: Bacteria Negative HPF (Negative); C & S Indicated? No; Casts Negative LPF (Negative); Crystals Negative HPF (Negative); Epithelial Cells Few HPF (Negative); Mucus Negative (Negative); RBC 0-2 HPF (0-2)
[2020-10-21] MEDS: Omnipaque 350 MG/ML 100 ML BTL IJ (13:51)
[2020-10-21] MEDS: Normal Saline Flush 10 ML SYR IVP (13:52)
[2020-10-21] MEDS: Normal Saline - Diluent 50 ML VIAL IV (13:52)
--- NOTE | 2020-10-21 14:26 | DI.VRAD_ITS ---
PROCEDURE INFORMATION: Exam: CT Abdomen And Pelvis Without And With Contrast Exam date and time: 10/21/2020 11:55 AM Age: 50 years old Clinical indication: Abdominal pain; Left lower quadrant (llq); Patient HX: Left flank pain radiating to llq TECHNIQUE: Imaging protocol: Computed tomography of the abdomen and pelvis without and with contrast. Contrast material: OMNIPAQUE 350; Contrast volume: 100 ml; Contrast route: INTRAVENOUS (IV); COMPARISON: CT ABD PELVIS WO CONTRAST 04/05/2017 1:13 AM FINDINGS: Lungs: Bibasilar atelectasis Liver: Normal. No mass. Gallbladder and bile ducts: Normal. No calcified stones. No ductal dilation. Pancreas: Normal. No ductal dilation. Spleen: Normal. No splenomegaly. Adrenal glands: Normal. No mass. Kidneys and ureters: There is no evidence of renal or ureteral calcifications. Stomach and bowel: Diverticulosis of the rectosigmoid. No sakina diverticulitis. Appendix: No evidence of appendicitis. Intraperitoneal space: Unremarkable. No free air. No significant fluid collection. Vasculature: Unremarkable. No abdominal aortic aneurysm. Lymph nodes: Unremarkable. No enlarged lymph nodes. Urinary bladder: Unremarkable as visualized. Reproductive: Unremarkable as visualized. Bones/joints: Left total hip replacement Soft tissues: Unremarkable. IMPRESSION: No acute process Dictated and Authenticated by: Milton Stinson MD. Ordering:CANDY Loo MD
[2020-10-21] MEDS: Ciprofloxacin 500 MG TAB PO (15:21)
[2020-10-21 15:25] VITALS: BP 139/93; PULSE 87; O2SAT 100
[2020-10-21 15:30] VITALS: BP 139/93; PULSE 87; RESP 16; TEMP 36.7; O2SAT 100
== END 2020-10-21 15:28 | disposition home or self-care (01) ==
PROVIDERS: Emergency Provider Physician Assistant; PCP Internal Medicine
DX: N41.0 Acute prostatitis (principal)
CPT/HCPCS: 80053; 83690; 85652; 96374; 99285; 74178; 81003; 81015; 83605; 85025; 86140; 99283; J2405; J3490

== ENCOUNTER 2020-10-26 02:10 | Outpatient (CLI) | payer OTHER, SELFPAY ==
[2020-10-26 10:13] LABS: Abs Immature Grans 0.02 10^3/uL (0.0-0.06); Absolute Basophil Count 0.04 10^3/uL (0.0-0.2); Absolute Eosinophil Count 0.25 10^3/uL (0.0-0.7); Absolute Lymphocyte Count 2.82 10^3/uL (1.2-3.4); Absolute Monocyte Count 0.48 10^3/uL (0.1-0.8); Absolute Neutrophil Count 3.08 10^3/uL (1.2-6.7); Basophils % 0.6; Eosinophils % 3.7; HCT 45.5 % (40.0-50.0); HGB 14.4 g/dL (13.5-17.5); Immature Grans % 0.3; Lymphocytes % 42.2; MCH 24.1 pg (27.0-33.0); MCHC 31.6 % (32.0-36.0); MCV 76.1 fL (80-95); MPV 8.8 fL (8.0-11.0); Monocytes % 7.2; Nucleated RBC 0 %; Platelet Count 341 10^3/uL (130-400); RBC 5.98 10^6/uL (4.36-5.78); RDW 13.6 % (11.8-14.1); RDW-SD 37.2 fL; WBC 6.69 10^3/uL (4.4-10.8)
[2020-10-26 10:18] LABS: ESR 15 mm//hr (0-20)
[2020-10-26 11:25] LABS: C-Reactive Protein 0.23 mg/dL (0.0-0.3)
== END 2020-10-26 02:11 | disposition home or self-care (01) ==
PROVIDERS: PCP Internal Medicine; Visit Provider Nurse Practitioner Acute Care
DX: Z96.641 Presence of right artificial hip joint (principal); Z47.1 Aftercare following joint replacement surgery
CPT/HCPCS: 36415; 85652; 85025; 86140

== ENCOUNTER 2022-03-21 18:20 | Emergency (ER) | payer BC, SELFPAY ==
[2022-03-21] VITALS (53 sets, daily range): BP systolic 116–159; BP diastolic 69–126; PULSE 65–152; RESP 12–34; TEMP 36.7; O2SAT 93–100
--- NOTE | 2022-03-21 18:15 | RT.EKG_ITS ---
APPROVED REPORT Exam: Resting ECG Reason for Exam: CHEST PAIN Patient Location: E HR:75 bpm ECG Measurements Heart Rate 75 AXIS MN 173 P 63 QRSd 95 QRS -1 QT 382 T 23 QTc 427 Conclusion Sinus rhythm...normal P axis, V-rate 60- 99. Sinus. No STEMI. I have reviewed and interpreted ECG and agree with software generated interpretation.
--- NOTE | 2022-03-21 18:45 | DI.CT_ITS ---
Exam(s) CT CHEST PE CTA EXAM: CT CHEST PE CTA CLINICAL HISTORY: chest pain, recent flight, shortness of breath. TECHNIQUE: Imaging Protocol: Axial CT angiography was performed with multi-slice acquisition and mu lti-planar and/or 3D reconstructions. CONTRAST MATERIAL: Intravenous: Omnipaque 350 Contrast volume:structured data in ml COMPARISON: CT CT ABDOMEN PELVIS WO/W from 10/21/2020 FINDINGS: CT angiography of the chest was performed with intravenous infusion of 100 cc of Omnipaque 350. The lungs are predominantly clear with mild emphysematous changes and mild bibasilar scarring. No pl eural effusion. Tracheobronchial tree appears intact. No evidence of pulmonary embolic disease. Thoracic aorta is of normal diameter, no thoracic aortic an eurysm or dissection, major branch vessels appear intact. No mediastinal or hilar adenopathy. Images obtained through the upper abdomen show unremarkable appearance of the visualized portions of the liver, spleen, and pancreas. IMPRESSION: Negative CT angiogram of the chest. No evidence of pulmonary embolic disease. RADIATION DOSE DELIVERED: 476.66mGy.cm Total DLP 476.66mGy.cm Total DLP !Error CTDIvol DATA REPOSITORY: All CT scans at this facility are submitted to the National Radiology Data Registry (NRDR) Dose Index Registry (DIR) with the [employer] (ACR). RADIATION OPTIMIZATION: All CT scans at this facility use at least one of these dose optimization te chniques: automated exposure control; mA and/or kV adjustment per patient size (includes targeted exa ms where dose is matched to clinical indication); or iterative reconstruction.
--- NOTE | 2022-03-21 18:45 | DI.RAD_ITS ---
Exam(s) XR PORTABLE CHEST AP EXAM: XR PORTABLE CHEST AP CLINICAL HISTORY: chest pain. TECHNIQUE: 2D digital imaging was performed. COMPARISON: CR CHEST 2 VIEWS PA,LAT from 08/24/2017 FINDINGS: LUNGS: Clear. No pleural abnormality seen. HEART: Normal. MEDIASTINUM: Normal. OTHER FINDINGS: None. IMPRESSION: No acute pulmonary findings. DATA REPOSITORY: RADIATION DOSE DELIVERED: Total DLP
[2022-03-21 19:36] LABS: Abs Immature Grans 0.04 10^3/uL (0.0-0.06); Absolute Basophil Count 0.04 10^3/uL (0.0-0.2); Absolute Eosinophil Count 0.34 10^3/uL (0.0-0.7); Absolute Lymphocyte Count 3.36 10^3/uL (1.2-3.4); Absolute Monocyte Count 0.93 10^3/uL (0.1-0.8); Absolute Neutrophil Count 5.93 10^3/uL (1.2-6.7); Basophils % 0.4; Eosinophils % 3.2; HCT 42.1 % (40.0-50.0); HGB 13.8 g/dL (13.5-17.5); Immature Grans % 0.4; Lymphocytes % 31.6; MCH 24.4 pg (27.0-33.0); MCHC 32.8 % (32.0-36.0); MCV 75 fL (80-95); MPV 8.9 fL (8.0-11.0); Monocytes % 8.7; Neutrophils % 55.7; Platelet Count 302 10^3/uL (130-400); RBC 5.65 10^6/uL (4.36-5.78); RDW 14.4 % (11.8-14.1); RDW-SD 37.5 fL; WBC 10.64 10^3/uL (4.4-10.8)
[2022-03-21 19:37] LABS: ESR 15 mm/hr (0-20)
--- NOTE | 2022-03-21 19:40 | DI.VRAD_ITS ---
PROCEDURE INFORMATION: Exam: XR Chest Exam date and time: 03/21/2022 7:17 PM Age: 51 years old Clinical indication: Other: Chest pain TECHNIQUE: Imaging protocol: Radiologic exam of the chest. Views: 1 view. COMPARISON: CR CHEST 2 VIEWS PA,LAT 08/24/2017 3:13 PM FINDINGS: Lungs: Mild chronic interstitial prominence, grossly stable. No consolidation. Pleural spaces: Unremarkable. No pleural effusion. No pneumothorax. Heart/Mediastinum: Unremarkable. No cardiomegaly. Bones/joints: Unremarkable. IMPRESSION: No acute findings. Dictated and Authenticated by: Andrew Fitch MD. Ordering:KATJA Chavez MD
[2022-03-21 19:54] LABS: Polychromasia Present
[2022-03-21 19:55] LABS: Microcytosis 2+
[2022-03-21] MEDS: methylPREDNISolone SUCC 125 MG VIAL 80 MG IVP (19:56)
[2022-03-21 20:01] LABS: ALT 49 U/L (16-63); AST 19 U/L (15-37); Albumin 3.6 g/dL (3.4-5.0); Alkaline Phosphatase 96 U/L (46-116); Anion Gap 6.7 mmol/L (3-11); BUN 15 mg/dL (7-18); Bilirubin, Total 0.2 mg/dL (0.2-1.0); CO2 29.3 mmol/L (21.0-32.0); CREATININE 1.2 mg/dL (0.70-1.30); Calcium 8.6 mg/dL (8.5-10.1); Chloride 104 mmol/L (98-107); Estimated GFR 72.31 (mL/min/1.73m2); Glucose 103 mg/dL (74-106); Lipase 156 U/L (73-393); NT-proBNP 78 pg/mL (<300); Potassium 3.7 mmol/L (3.5-5.1); Sodium 140 mmol/L (136-145); Total Protein 7.7 g/dL (6.4-8.2); Troponin I < 50 ng/L (<or=60)
[2022-03-21] MEDS: Albuterol/Ipratropium 3 ML UPD VIAL UPD (20:01)
[2022-03-21] MEDS: Omnipaque 350 MG/ML 100 ML BTL IJ (21:05)
--- NOTE | 2022-03-21 21:14 | DI.VRAD_ITS ---
PROCEDURE INFORMATION: Exam: CTA Chest With Contrast Exam date and time: 03/21/2022 9:00 PM Age: 51 years old Clinical indication: Pain; Shortness of breath; Chest pressure; Additional info: Chest pain, recent flight, shortness of breath TECHNIQUE: Imaging protocol: Computed tomographic angiography of the chest with contrast. 3D rendering (Not supervised by radiologist): MIP and/or 3D reconstructed images were created by the technologist. Radiation optimization: All CT scans at this facility use at least one of these dose optimization techniques: automated exposure control; mA and/or kV adjustment per patient size (includes targeted exams where dose is matched to clinical indication); or iterative reconstruction. Contrast material: OMNI 350; Contrast volume: 100 ml; Contrast route: INTRAVENOUS (IV); COMPARISON: XR PORTABLE CHEST AP 03/21/2022 7:17 PM FINDINGS: Pulmonary arteries: No pulmonary emboli. Aorta: No aortic aneurysm. No aortic dissection. Lungs: Minimal subsegmental atelectasis versus scarring Mild bronchiectasis. No consolidation. No masses. Small bleb in the right upper lobe Pleural spaces: Unremarkable. No pneumothorax. No pleural effusion. Heart: Unremarkable. No cardiomegaly. No pericardial effusion. Lymph nodes: Minimal residual thymic tissue in the anterior mediastinum. No enlarged lymph nodes. Bones/joints: Unremarkable. No acute fracture. Soft tissues: Unremarkable. Distal esophageal thickening and small hiatal hernia IMPRESSION: No pulmonary emboli observed Distal esophagitis suspected and small hiatal hernia Dictated and Authenticated by: Andrew Fitch MD. Ordering:KATJA Chavez MD
[2022-03-21 21:29] LABS: Source Nasal/Nares
[2022-03-21] MEDS: Albuterol/Ipratropium 3 ML UPD VIAL (21:47)
[2022-03-21 22:03] LABS: COVID-19 PCR Negative (Negative)
[2022-03-21 22:34] LABS: Troponin I < 50 ng/L (<or=60)
--- NOTE | 2022-03-21 22:45 | RT.EKG_ITS ---
APPROVED REPORT Exam: Resting ECG Reason for Exam: chest pain Patient Location: E HR:78 bpm ECG Measurements Heart Rate 78 AXIS OK 166 P 47 QRSd 91 QRS -10 QT 384 T 8 QTc 437 Conclusion Sinus rhythm...normal P axis, V-rate 60- 99 Physician: no stemi, unchanged
[2022-03-21 23:14] LABS: Creatine Kinase 486 U/L (39-308)
--- NOTE | 2022-03-21 23:37 | W.ED.GENAD ---
Discharge Plan Disposition Patient Disposition: HOME Condition: Stable Discharge Details Clinical Impression: Pleuritic pain, Myalgia Primary Care Provider: Cecy Rsamussen ED Provider: Kathy Conklin Home Meds and New Rx's Prescriptions: New prednisone 20 mg tablet 20 mg PO BID 3 Days Qty: 6 0RF Combivent Respimat 20-100 mcg/actuation mist 1 puff inhalation Q6H Qty: 4 0RF Continued (DME) arm brace [Wrist Brace Medium] 1 EACH misc 2 ea Miscellaneous HS Qty: 2 0RF Rx Instructions: Bilateral wrist spints acetaminophen 325 MG tablet 650 mg PO PRN Systane (PF) 1 EACH dropperette 1 ea Ophthalmic DAILY esomeprazole magnesium 40 MG capsule,delayed release(DR/EC) 40 mg PO DAILY epinephrine 0.3 MG/SYR auto-injector 1 ea IM PRN PRN ibuprofen 600 MG tablet 600 mg PO Q6H PRN (Reason: Pain) Qty: 20 0RF albuterol sulfate [ProAir HFA] 200 PUFF HFA aerosol inhaler 2 puff inhalation PRN PRN Flovent Diskus 250 MCG blister with device 1 inh inhalation BID amlodipine 5 mg tablet 5 mg PO DAILY irbesartan-hydrochlorothiazide 300-12.5 mg tablet 1 tab PO DAILY metoprolol succinate 25 mg tablet extended release 24 hr 50 mg PO DAILY Label Comments: take 1 AND 1/2 tablets by mouth once daily colchicine 0.6 mg tablet 0.6 mg PO DAILY Label Comments: take 1 tablet by mouth once daily Ozempic 1 mg/dose (4 mg/3 mL) pen injector 1 device SUBCUT DIRECTED Label Comments: INJECT 1 MG UNDER THE SKIN EVERY WEEK montelukast 10 mg tablet 1 tab PO DAILY Label Comments: take 1 tablet by mouth once daily infliximab [Remicade] 100 mg Recon Soln 500 mg IV DIRECTED Rx Instructions: unsure of dose Discharge Instructions Instructions: Chest Pain (ED), Musculoskeletal Pain (ED) Additional Instructions: Take the prednisone as prescribed, start this tomorrow Try using your albuterol inhaler, 2 puffs every 4-6 hours, must continue Combivent inhaler, use either the Combivent for the albuterol, whichever works best for you, these medications work similarly Recommend you following up with your doctor in 24 to 48 hours for recheck Please return immediately should you have new or worsening complaints I recommend stopping your cholesterol medication temporarily and increase your fluid hydration Should you have persistent symptoms, you should be reassessed in the emergency department Recommend outpatient stress test Referrals: Cecy Rasmussen [Primary Care Provider] - 1 day Discharge Data Discharge Date/Time-TO BE ENTERED AT DEPARTURE: 03/21/22 23:38 Medical Decision Making Patient has atypical chest pain that is exacerbated with deep breathing He is feeling marked improvement in symptoms after 2 DuoNeb's and steroid administration He is ambulatory with steady gait he still feels lightheaded reportedly but is no longer dyspneic or having any pain Patient is afebrile and nontoxic Is encouraged to have blood pressure rechecked by her primary care physician He will need reassessment tomorrow He is given a short course of steroids He is instructed use caution with his immunosuppressive's will taking. His diagnostic labs are reassuring including serial troponin, and few negative EKGs in the absence of concerning findings for acute coronary syndrome CTA does not show evidence of acute abnormality per radiology interpretation my review low threshold to return earlier with any complaints Medical Records Medical records reviewed: Yes I reviewed the patient's medical records. Lab Data Lab results reviewed: Yes I reviewed the patient's lab results. HPI General Date/Time Provider Initiated Documentation: 03/21/22 18:44. HPI Narrative: this 51-year-old gentleman with history of Behcet's hypertension, hyperlipidemia presents with generalized myalgias, shortness of breath, lightheadedness, pleuritic chest pain with been going on for the past week. Denies history of similar symptoms in the past. Denies any calf pain or swelling. Pain is exacerbated with deep breathing. Denies history of pulmonary embolism. Denies fever or chills. Denies known sick contacts. Denies any new medications. Denies pain in the absence of deep breathing. States today was lightheaded and had an episode of weakness. This is not reportedly exertional. Does not smoke tobacco. Denies early family history of coronary artery disease. Denies any illicit drug use. States the pain is not constant but exacerbated with breathing. Related Data Home Medications Medication Instructions Recorded Confirmed epinephrine 0.3 mg/0.3 mL 1 ea IM PRN PRN 11/28/15 03/21/22 injection, auto-injector esomeprazole magnesium 40 mg 40 mg PO DAILY 11/28/15 03/21/22 capsule,delayed release ibuprofen 600 mg tablet 600 mg PO Q6H PRN Pain #20 tabs 04/05/17 03/21/22 arm brace (Wrist Brace Medium) #2 ea 06/03/17 albuterol sulfate 90 mcg/actuation 2 puff inhalation PRN PRN 08/24/17 03/21/22 aerosol inhaler (ProAir HFA) fluticasone propionate 250 1 inh inhalation BID 08/24/17 03/21/22 mcg/actuation blister powder for inhalation (Flovent Diskus) acetaminophen 325 mg tablet 650 mg PO PRN 10/08/17 03/21/22 peg 400-propylene glycol (PF) 0.4 1 ea ophthalmic (eye) DAILY 10/08/17 03/21/22 %-0.3 % eye drops in a dropperette (Systane (PF)) amlodipine 5 mg tablet 5 mg PO DAILY 10/21/20 03/21/22 colchicine 0.6 mg tablet 0.6 mg PO DAILY 10/21/20 03/21/22 irbesartan 300 1 tab PO DAILY 10/21/20 03/21/22 mg-hydrochlorothiazide 12.5 mg tablet metoprolol succinate 25 mg 50 mg PO DAILY 10/21/20 03/21/22 tablet,extended release 24 hr infliximab 100 mg intravenous 500 mg IV DIRECTED 03/21/22 03/21/22 solution (Remicade) ipratropium 20 mcg-albuterol 100 1 puff inhalation Q6H #4 grams 03/21/22 mcg/actuation mist for inhalation (Combivent Respimat) montelukast 10 mg tablet 1 tab PO DAILY 03/21/22 03/21/22 prednisone 20 mg tablet 20 mg PO BID 3 days #6 tabs 03/21/22 semaglutide 1 mg/dose (4 mg/3 mL) 1 device subcut DIRECTED 03/21/22 03/21/22 subcutaneous pen injector (Ozempic) Previous Rx's Medication Instructions Recorded ibuprofen 600 mg tablet 600 mg PO Q6H PRN Pain #20 tabs 04/05/17 arm brace (Wrist Brace Medium) #2 ea 06/03/17 ipratropium 20 mcg-albuterol 100 1 puff inhalation Q6H #4 grams 03/21/22 mcg/actuation mist for inhalation (Combivent Respimat) prednisone 20 mg tablet 20 mg PO BID 3 days #6 tabs 03/21/22 Allergies Allergy/AdvReac Type Severity Reaction Status Date / Time apple Allergy Unverified 03/21/22 23:16 nut - unspecified Allergy Unverified 03/21/22 23:16 General Stated Complaint: Chest Pain EMILY: 2 Review of Systems All systems reviewed & are unremarkable except as noted in HPI and below PFSH All Active Problems (Updated 03/22/22 @ 16:17 by Nubia Oakes) Behcets syndrome (Acute) Pleuritic pain (Acute) Myalgia (Acute) Allergic rhinitis due to food (Acute) Acute prostatitis (Acute) Chronic rhinitis (Acute) Post-nasal drip (Acute) Seasonal allergic rhinitis due to pollen (Acute) Tension headache (Acute 06/11/16) Migraine with aura and without status migrainosus, not intractable (Acute 06/11/16) Chronic midline low back pain with bilateral sciatica (Acute 03/12/16) Allergic rhinitis due to pollen (Acute 07/05/15) Allergic rhinitis due to other allergen (Acute 01/17/14) Medical History (Updated 03/22/22 @ 16:17 by Nubia Oakes) Carpal tunnel syndrome, bilateral Chronic low back pain Chronic neck pain Diabetes type 2, controlled Diabetic peripheral neuropathy Fibromyalgia Gastroesophageal reflux disease Heart disease Hyperlipidemia Hypertension Migraine Obstructive sleep apnea Oral ulceration Osteoarthritis Uveitis of both eyes Vasovagal syncope Surgical History History of appendectomy History of shoulder surgery RIGHT SHOULDER Family History (Updated 05/18/18 @ 15:20 by Jo Vital LPN) Father Heart disease Mother Asthma Other Sickle cell anemia Social History Smoking/Tobacco Use Status: Never Smoking risk assessment performed?: Yes Alcohol Intake: never Drug use: Never Substance use type: does not use Household members: spouse and children 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 Do you feel safe at home: Yes Do you feel safe in your relationship?: Yes Exam Const Orientation: alert and oriented x3 HENMT Head: normal to inspection Neck Other: no crepitus or stridor Chest Chest: normal inspection of the chest Resp Effort & Inspection: normal respiratory effort Other: diminished Cardio Rate: regular rate Rhythm: regular rhythm GI Inspection: normal to inspection Skin General skin exam: no rashes or lesions noted Neuro General: patient alert and patient oriented x3 Extrem General: normal to inspection Other: distal pulses intact non-tender exam Course Vital Signs Vital signs: Vital Signs Temperature 36.7 C 03/21/22 18:27 Pulse 78 03/21/22 18:27 Respiratory Rate 20 03/21/22 18:27 Blood Pressure 133/98 H 03/21/22 18:27 Pulse Oximetry 99 03/21/22 18:27 Temperature 36.7 C 03/21/22 20:00 Temperature Source Temporal Artery Scan 03/21/22 18:27 Pulse 75 03/21/22 23:16 Pulse 86 03/21/22 23:30 Respiratory Rate 27 H 03/21/22 23:30 Respiratory Effort 03/21/22 23:14 Blood Pressure 143/103 H 03/21/22 23:16 Blood Pressure Mean 112 03/21/22 23:16 Blood Pressure Position Sitting 03/21/22 18:27 Pulse Oximetry 95 03/21/22 23:30 Oxygen Delivery Method Room Air 03/21/22 20:01 Oxygen Flow Rate 0 03/21/22 20:01 Pain Level 10 03/21/22 20:00 Lab/Test Results Lab/Test Results: Laboratory Tests Range/Units 03/21/22 03/21/22 03/21/22 19:30 19:30 19:30 WBC (4.4-10.8) 10^3/uL 10.64 RBC (4.36-5.78) 10^6/uL 5.65 Hgb (13.5-17.5) g/dL 13.8 Hct (40.0-50.0) % 42.1 MCV (80-95) fL 75 L MCH (27.0-33.0) pg 24.4 L MCHC (32.0-36.0) % 32.8 RDW (11.8-14.1) % 14.4 H Plt Count (130-400) 10^3/uL 302 MPV (8.0-11.0) fL 8.9 Immature Gran % 0.4 Neutrophils % 55.7 Lymphocytes % 31.6 Monocytes % 8.7 Eosinophils % 3.2 Basophils % 0.4 Nucleated RBC % (0.0-0.3) % 0.0 Absolute Neutrophils (1.2-6.7) 10^3/uL 5.93 Absolute Lymphocytes (1.2-3.4) 10^3/uL 3.36 Absolute Monocytes (0.1-0.8) 10^3/uL 0.93 H Absolute Eosinophils (0.0-0.7) 10^3/uL 0.34 Absolute Basophils (0.0-0.2) 10^3/uL 0.04 Polychromasia Present Microcytosis 2+ ESR (0-20) mm/hr 15 Sodium (136-145) mmol/L 140 Potassium (3.5-5.1) mmol/L 3.7 Chloride (98-107) mmol/L 104 Carbon Dioxide (21.0-32.0) mmol/L 29.3 Anion Gap (3-11) mmol/L 6.7 BUN (7-18) mg/dL 15 Creatinine (0.70-1.30) mg/dL 1.2 Est GFR (CKD-EPI 2020) (mL/min/1.73m2) 72.31 Glucose (74-106) mg/dL 103 Calcium (8.5-10.1) mg/dL 8.6 Total Bilirubin (0.2-1.0) mg/dL 0.2 AST (15-37) U/L 19 ALT (16-63) U/L 49 Alkaline Phosphatase (46-116) U/L 96 Creatine Kinase (39-308) U/L Troponin I (<or=60) ng/L < 50 NT-Pro-B Natriuret Pep (<300) pg/mL 78 Total Protein (6.4-8.2) g/dL 7.7 Albumin (3.4-5.0) g/dL 3.6 Lipase (73-393) U/L 156 COVID-19 Source SARS-CoV-2 (PCR) (Negative) Range/Units 03/21/22 03/21/22 03/21/22 21:26 22:13 22:15 WBC (4.4-10.8) 10^3/uL RBC (4.36-5.78) 10^6/uL Hgb (13.5-17.5) g/dL Hct (40.0-50.0) % MCV (80-95) fL MCH (27.0-33.0) pg MCHC (32.0-36.0) % RDW (11.8-14.1) % Plt Count (130-400) 10^3/uL MPV (8.0-11.0) fL Immature Gran % Neutrophils % Lymphocytes % Monocytes % Eosinophils % Basophils % Nucleated RBC % (0.0-0.3) % Absolute Neutrophils (1.2-6.7) 10^3/uL Absolute Lymphocytes (1.2-3.4) 10^3/uL Absolute Monocytes (0.1-0.8) 10^3/uL Absolute Eosinophils (0.0-0.7) 10^3/uL Absolute Basophils (0.0-0.2) 10^3/uL Polychromasia Microcytosis ESR (0-20) mm/hr Sodium (136-145) mmol/L Potassium (3.5-5.1) mmol/L Chloride (98-107) mmol/L Carbon Dioxide (21.0-32.0) mmol/L Anion Gap (3-11) mmol/L BUN (7-18) mg/dL Creatinine (0.70-1.30) mg/dL Est GFR (CKD-EPI 2020) (mL/min/1.73m2) Glucose (74-106) mg/dL Calcium (8.5-10.1) mg/dL Total Bilirubin (0.2-1.0) mg/dL AST (15-37) U/L ALT (16-63) U/L Alkaline Phosphatase (46-116) U/L Creatine Kinase (39-308) U/L 486 H Troponin I (<or=60) ng/L < 50 NT-Pro-B Natriuret Pep (<300) pg/mL Total Protein (6.4-8.2) g/dL Albumin (3.4-5.0) g/dL Lipase (73-393) U/L COVID-19 Source Nasal/Nares SARS-CoV-2 (PCR) (Negative) Negative
== END 2022-03-21 23:38 | disposition home or self-care (01) ==
PROVIDERS: Emergency Provider Physician Assistant; PCP Internal Medicine
DX: R07.81 Pleurodynia (principal); M79.10 Myalgia, unspecified site; I10 Essential (primary) hypertension; E11.42 Type 2 diabetes mellitus with diabetic polyneuropathy; Z20.822 Contact with and (suspected) exposure to COVID-19
CPT/HCPCS: 36415; 71275; 80053; 82550; 83690; 85652; 87635; 93005; 94640; 96374; 96375; 99285; 71045; 83880; 84484; 85025; 93010; 99284; J0131; J2930; J3490; J7620

== ENCOUNTER 2024-01-08 19:08 | Outpatient (REF) | payer BC, SELFPAY ==
[2024-01-08 20:45] LABS: Abs Immature Grans 0.02 10^3/uL (0.0-0.06); Absolute Basophil Count 0.04 10^3/uL (0.0-0.2); Absolute Eosinophil Count 0.14 10^3/uL (0.0-0.7); Absolute Monocyte Count 0.58 10^3/uL (0.1-0.8); Absolute Neutrophil Count 2.16 10^3/uL (1.2-6.7); Basophils % 0.6 %; Eosinophils % 2.1 %; HGB 14.2 g/dL (13.5-17.5); Immature Grans % 0.3 %; Lymphocytes % 55.7 %; MCH 24.7 pg (27.0-33.0); MCHC 32.3 % (32.0-36.0); MCV 76 fL (80-95); Monocytes % 8.7 %; Neutrophils % 32.6 %; Platelet Count 255 10^3/uL (130-400); RBC 5.76 10^6/uL (4.36-5.78); RDW 13.9 % (11.8-14.1); RDW-SD 38.3 fL; WBC 6.64 10^3/uL (4.4-10.8)
--- OUTSIDE RECORDS SUMMARY | 2024-01-09 19:13 | XMS_ITS | Continuity of Care Document ---
Author Name Unknown Organization [facility] Ambulatory [facility]ics Address [address] [place] [address] Care Team Providers Care Endoscopic Technician Name Role Phone MARBIN BENAVIDES Primary Care Physician Encounter [facility] NBR [id number] Date(s): 05/13/23 - 05/13/23 [facility] [address] [place] [address]- [place] Encounter Diagnosis Allergic rhinitis(Discharge Diagnosis) - 05/13/23 Discharge Disposition: Home or Self Care Allergies, Adverse Reactions, Alerts Substance Reaction Severity Status Tree Nuts Unknown Active Grass Unknown Active Apple fruit Unknown Unknown Active Dust mite Unknown Active Assessment and Plan Future Appointments Medications !-Augmentin 875 mg-125 mg oral tablet 1 tab, Oral, every 12 hr, # 20 tab, 0 Refill(s), Pharmacy: [facility] #[id number] Start Date: 01/01/23 Stop Date: 01/11/23 Status: Ordered Accolate 10 mg oral tablet 10 mg = 1 tab, Oral, BID, # 60 tab, 2 Refill(s), Pharmacy: [facility] #[id number] Start Date: 01/01/23 Status: Ordered EPINEPHrine 0.3 mg injectable kit 0.3 mg =, IM, Once, # 1 EA, 0 Refill(s) Start Date: 12/31/22 Status: Ordered fexofenadine 180 mg oral tablet 180 mg = 1 tab, Oral, Daily, # 90 tab, 3 Refill(s), Pharmacy: [facility] #[id number] Start Date: 01/01/23 Stop Date: 12/27/23 Status: Ordered fluticasone propionate 0 Refill(s) Start Date: 12/31/22 Status: Ordered Linzess 145 mcg oral capsule 145 mcg = 1 cap, Oral, Daily, # 30 cap, 0 Refill(s) Start Date: 12/31/22 Status: Ordered Lyrica 25 mg oral capsule 25 mg = 1 cap, Oral, Daily, 0 Refill(s) Start Date: 12/31/22 Status: Ordered methotrexate 2.5 mg oral tablet 2.5 mg = 1 tab, Oral, every week, # 4 tab, 0 Refill(s) Start Date: 12/31/22 Status: Ordered Metoprolol Tartrate 25 mg oral tablet 0 Refill(s) Start Date: 12/31/22 Status: Ordered Nasonex 50 mcg/inh nasal spray 2 sprays, Nasal, BID, # 17 g, 0 Refill(s), Pharmacy: [facility] #[id number] Start Date: 01/01/23 Status: Ordered NexIUM 40 mg oral delayed release capsule 40 mg = 1 cap, Oral, Daily, # 30 cap, 0 Refill(s) Start Date: 12/31/22 Status: Ordered Remicade 100 mg intravenous injection 3 mg/kg =, IV, Once, # 1 EA, 0 Refill(s) Start Date: 12/31/22 Status: Ordered Singulair 10 mg oral tablet 10 mg = 1 tab, Oral, Daily, # 30 tab, 0 Refill(s) Start Date: 12/31/22 Status: Ordered ZyrTEC 10 mg oral tablet 10 mg = 1 tab, Oral, Daily, # 90 tab, 0 Refill(s) Start Date: 12/31/22 Status: Ordered Problem List Condition Confirmation Course Effective Dates Status Health St atus Informant Allergic rhinitis Confirmed Active Arthritis Confirmed Active Behcet's disease Confirmed Active Depression Confirmed Active Disease of immune system Confirmed Active Fibromyalgia Confirmed Active Esophageal reflux Confirmed Active Sinus infection Confirmed Active Patient Care team information Care Team Personnel Name: MARBIN BENAVIDES Position: No Access Member Role: Primary Care Physician Address: Address: [place], [place] [address] Care Team Related Persons Name: MIGUEL OLMEDO Address: [place] [address]
--- OUTSIDE RECORDS SUMMARY | 2024-01-09 19:13 | XMS_ITS | Continuity of Care Document ---
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 Role Phone MARBIN BENAVIDES Primary Care Physician Encounter [facility] NBR [id number] Date(s): 06/10/23 - 06/10/23 [facility] [address] [place] [address]- Encounter Diagnosis Allergic rhinitis(Discharge Diagnosis) - 06/10/23 Discharge Disposition: Home or Self Care Allergies, Adverse Reactions, Alerts Substance Reaction Severity Status Tree Nuts Unknown Active Grass Unknown Active Apple fruit Unknown Unknown Active Dust mite Unknown Active Assessment and Plan Future Appointments Medications !-Augmentin 875 mg-125 mg oral tablet 1 tab, Oral, every 12 hr, # 20 tab, 0 Refill(s), Pharmacy: [facility] #[id number] Start Date: 01/01/23 Stop Date: 01/11/23 Status: Ordered Accolate 10 mg oral tablet 10 mg = 1 tab, Oral, BID, # 60 tab, 2 Refill(s), Pharmacy: [facility] #[id number] Start Date: 01/01/23 Status: Ordered EPINEPHrine 0.3 mg injectable kit 0.3 mg =, IM, Once, # 1 EA, 0 Refill(s) Start Date: 12/31/22 Status: Ordered fexofenadine 180 mg oral tablet 180 mg = 1 tab, Oral, Daily, # 90 tab, 3 Refill(s), Pharmacy: [facility] #[id number] Start Date: 01/01/23 Stop Date: 12/27/23 Status: [...] BID, # 17 g, 0 Refill(s), Pharmacy: [facility] #[id number] Start Date: 01/01/23 Status: Ordered NexIUM 40 [...] Member Role: Primary Care Physician Address: Address: [place], [place] [address] Care Team Related Persons Name: MIGUEL OLMEDO Address: [place] [address]
--- OUTSIDE RECORDS SUMMARY | 2024-01-09 19:13 | XMS_ITS | Continuity of Care Document ---
Author Name Unknown Organization [facility] Ambulatory Clinics Address [address] [place] [address] Care Team Providers Care Marking Machine Operator Name Role Phone MARBIN BENAVIDES Primary Care Physician Encounter [facility] NBR [id number] Date(s): 03/25/23 - 03/25/23 [facility] Ambulatory [facility] [address] [place], [place] [address] Encounter Diagnosis Allergic rhinitis(Discharge Diagnosis) - 03/25/23 Discharge Disposition: Home or Self Care Attending Physician: Ameya Kendrick, Allergies, Adverse Reactions, Alerts Substance Reaction Severity Status Tree Nuts Unknown Active Grass Unknown Active Apple fruit Unknown Unknown Active Dust mite Unknown Active Medications !-Augmentin 875 mg-125 mg oral tablet 1 tab, Oral, every 12 hr, # 20 tab, 0 Refill(s), Pharmacy: [facility] #[id number] Start Date: 01/01/23 Stop Date: 01/11/23 Status: Ordered Accolate 10 mg oral tablet 10 mg = 1 tab, Oral, BID, # 60 tab, 2 Refill(s), Pharmacy: [facility] #[id number] Start Date: 01/01/23 Status: Ordered EPINEPHrine 0.3 mg injectable kit 0.3 mg =, IM, Once, # 1 EA, 0 Refill(s) Start Date: 12/31/22 Status: Ordered fexofenadine 180 mg oral tablet 180 mg = 1 tab, Oral, Daily, # 90 tab, 3 Refill(s), Pharmacy: [facility] #[id number] Start Date: 01/01/23 Stop Date: 12/27/23 Status: [...] BID, # 17 g, 0 Refill(s), Pharmacy: [facility] #[id number] Start Date: 01/01/23 Status: Ordered NexIUM 40 [...] Member Role: Primary Care Physician Address: Address: [place], [place] [address] Care Team Related Persons Name: MIGUEL OLMEDO Address: [place] [address]
--- OUTSIDE RECORDS SUMMARY | 2024-01-09 19:13 | XMS_ITS | Continuity of Care Document ---
Author Name Unknown Organization [facility] Ambulatory [facility] Address [address] [place] [address] Care Team Providers Care Electric Trucker Name Role Phone MARBIN BENAVIDES Primary Care Physician Encounter [facility] NBR [id number] Date(s): 07/03/23 - 07/03/23 [facility] [address] [place], [place] [address] Encounter Diagnosis Environmental allergies(Discharge Diagnosis) - 07/03/23 Discharge Disposition: Home or Self Care Allergies, Adverse Reactions, Alerts Substance Reaction Severity Status Tree Nuts Unknown Active Grass Unknown Active Apple fruit Unknown Unknown Active Dust mite Unknown Active Assessment and Plan Extracted from: Title:allergy serum mix Author:CHRISTINE Vargas Date:07/03/23 Assessment Vials mixed per allergy order for allergy IT. See scanned doc. for allergy order. . Plan Diagnosis: Environmental allergies ([id number] Z91.09, Discharge, Medical). Orders Ambulatory Procedures: [id number] Preparation and provision of antigens for allergen immunotherapy; single or multiple antigens[ (Order): 07/03/2023 14:35 EST, Environmental allergies, 20 Future Appointments Medications !-Augmentin 875 mg-125 mg oral tablet 1 tab, Oral, every 12 hr, # 20 tab, 0 Refill(s), Pharmacy: [facility] #[id number] Start Date: 01/01/23 Stop Date: 01/11/23 Status: Ordered Accolate 10 mg oral tablet 10 mg = 1 tab, Oral, BID, # 60 tab, 2 Refill(s), Pharmacy: [facility] #[id number] Start Date: 01/01/23 Status: Ordered EPINEPHrine 0.3 mg injectable kit 0.3 mg =, IM, Once, # 1 EA, 0 Refill(s) Start Date: 12/31/22 Status: Ordered fexofenadine 180 mg oral tablet 180 mg = 1 tab, Oral, Daily, # 90 tab, 3 Refill(s), Pharmacy: [facility] #[id number] Start Date: 01/01/23 Stop Date: 12/27/23 Status: [...] BID, # 17 g, 0 Refill(s), Pharmacy: [facility] #[id number] Start Date: 01/01/23 Status: Ordered NexIUM 40 [...] reflux Confirmed Active Sinus infection Confirmed Active Physician Outpatient Note * CHRISTINE Vargas: PERFORM, SIGN, VERIFY Event Display: Office Clinic Note Physician Authored Date: [id number] Patient: GERALD OLMEDO Age: 53 years Sex: Male : 1970 Associated Diagnoses: Environmental allergies Author: CHRISTINE Vargas Chief Complaint Allergy Serum mixing for allergy immunotherapy Visit Information 2 5mL Vial(s) mixed per allergy orders for allergy IT. Medications Include (Selected) Prescriptions Prescribed !-Augmentin 875 mg-125 mg oral tablet: 1 tab, Oral, every 12 hr, for 10 days, 20 tab, 0 Refill(s) Accolate 10 mg oral tablet: 10 mg = 1 tab, Oral, BID, 60 tab, 2 Refill(s) Nasonex 50 mcg/inh nasal spray: 2 sprays, Nasal, BID, 17 g, 0 Refill(s) fexofenadine 180 mg oral tablet: 180 mg = 1 tab, Oral, Daily, for 90 days, 90 tab, 3 Refill(s) Documented Medications Documented EPINEPHrine 0.3 mg injectable kit: 0.3 mg, IM, Once, 1 EA, 0 Refill(s) Linzess 145 mcg oral capsule: 145 mcg = 1 cap, Oral, Daily, 30 cap, 0 Refill(s) Lyrica 25 mg oral capsule: 25 mg = 1 cap, Oral, Daily, 0 Refill(s) Metoprolol Tartrate 25 mg oral tablet: 0 Refill(s) NexIUM 40 mg oral delayed release capsule: 40 mg = 1 cap, Oral, Daily, 30 cap, 0 Refill(s) Remicade 100 mg intravenous injection: 3 mg/kg, IV, Once, 1 EA, 0 Refill(s) Singulair 10 mg oral tablet: 10 mg = 1 tab, Oral, Daily, 30 tab, 0 Refill(s) ZyrTEC 10 mg oral tablet: 10 mg = 1 tab, Oral, Daily, 90 tab, 0 Refill(s) fluticasone propionate: 0 Refill(s) methotrexate 2.5 mg oral tablet: 2.5 mg = 1 tab, Oral, every week, 4 tab, 0 Refill(s). Problems Include (Selected) All Problems Allergic rhinitis / 884951028 / Confirmed Arthritis / 7841151 / Confirmed Behcet's disease / 634308638 / Confirmed Depression / 51322199 / Confirmed Disease of immune system / 3633850033 / Confirmed Fibromyalgia / 522067631 / Confirmed Esophageal reflux / 813049914 / Confirmed Sinus infection / 83799992 / Confirmed Canceled: Allergies / [id number]. Assessment Vials mixed per allergy order for allergy IT. See scanned doc. for allergy order. . Plan Diagnosis: Environmental allergies ([id number] Z91.09, Discharge, Medical). Orders Ambulatory Procedures: 58548 Preparation and provision of antigens for allergen immunotherapy; single or multiple antigens[ (Order): 07/03/2023 14:35 EST, Environmental allergies, 20 Electronically Signed on 07/03/23 02:36 PM CHRISTINE Vargas Patient Care team information Care Team Personnel Name: MARBIN BENAVIDES Position: No Access Member Role: Primary Care Physician Address: Address: [place] [address]- Care Team Related Persons Name: MIGUEL OLMEDO Address: [place] [address]
--- OUTSIDE RECORDS SUMMARY | 2024-01-09 19:13 | XMS_ITS | Continuity of Care Document ---
Author Name Unknown Organization [facility] Ambulatory Clinics Address [address] [place] [address] Care Team Providers Care Master Planner Name Role Phone MARBIN BENAVIDES Primary Care Physician Encounter [facility] [facility] NBR [id number] Date(s): 03/11/23 - 03/11/23 [facility] Ambulatory Clinics [address] [place], [place] [address] Encounter Diagnosis Allergic rhinitis(Discharge Diagnosis) - 03/11/23 Discharge Disposition: Home or Self Care Allergies, Adverse Reactions, Alerts Substance Reaction Severity Status Tree Nuts Unknown Active Grass Unknown Active Apple fruit Unknown Unknown Active Dust mite Unknown Active Medications !-Augmentin 875 mg-125 mg oral tablet 1 tab, Oral, every 12 hr, # 20 tab, 0 Refill(s), Pharmacy: [facility] #[id number] Start Date: 01/01/23 Stop Date: 01/11/23 Status: Ordered Accolate 10 mg oral tablet 10 mg = 1 tab, Oral, BID, # 60 tab, 2 Refill(s), Pharmacy: [facility] #[id number] Start Date: 01/01/23 Status: Ordered EPINEPHrine 0.3 mg injectable kit 0.3 mg =, IM, Once, # 1 EA, 0 Refill(s) Start Date: 12/31/22 Status: Ordered fexofenadine 180 mg oral tablet 180 mg = 1 tab, Oral, Daily, # 90 tab, 3 Refill(s), [facility]: [facility] #[id number] Start Date: 01/01/23 Stop Date: 12/27/23 Status: [...] BID, # 17 g, 0 Refill(s), Pharmacy: [facility] #[id number] Start Date: 01/01/23 Status: Ordered NexIUM 40 [...] Member Role: Primary Care Physician Address: Address: [address]
--- OUTSIDE RECORDS SUMMARY | 2024-01-09 19:13 | XMS_ITS | Continuity of Care Document ---
Author Name Unknown Organization [facility] Ambulatory Clinics Address [address] [place] [address] Care Team Providers Care Tractor Engine Mechanic Name Role Phone MARBIN BENAVIDES Primary Care Physician [phone] Encounter [facility] NBR [id number] Date(s): 03/04/23 - 03/04/23 [facility] Ambulatory Clinics [address] [place], [place] [address] Discharge Disposition: Home or Self Care Allergies, Adverse Reactions, Alerts Substance Reaction Severity Status Tree Nuts Unknown Active Grass Unknown Active Apple fruit Unknown Unknown Active Dust mite Unknown Active Medications !-Augmentin 875 mg-125 mg oral tablet 1 tab, Oral, every 12 hr, # 20 tab, 0 Refill(s), [facility]: [facility] #[id number] Start Date: 01/01/23 Stop Date: 01/11/23 Status: Ordered Accolate 10 mg oral tablet 10 mg = 1 tab, Oral, BID, # 60 tab, 2 Refill(s), [facility]acy: [facility] #[id number] Start Date: 01/01/23 Status: Ordered EPINEPHrine 0.3 mg injectable kit 0.3 mg =, IM, Once, # 1 EA, 0 Refill(s) Start Date: 12/31/22 Status: Ordered fexofenadine 180 mg oral tablet 180 mg = 1 tab, Oral, Daily, # 90 tab, 3 Refill(s), [facility]acy: [facility] #[id number] Start Date: 01/01/23 Stop Date: 12/27/23 Status: [...] BID, # 17 g, 0 Refill(s), Pharmacy: [facility] #[id number] Start Date: 01/01/23 Status: Ordered NexIUM 40 [...] Member Role: Primary Care Physician Address: Address: [place], [place] [address]
--- OUTSIDE RECORDS SUMMARY | 2024-01-09 19:13 | XMS_ITS | Continuity of Care Document ---
Author Name Unknown Organization [facility] Ambulatory Clinics Address [address] [place] [address] Care Team Providers Care Ammonia Box Operator Name Role Phone MARBIN BENAVIDES Primary Care Physician Encounter [facility] NBR [id number] Date(s): 06/17/23 - 06/17/23 [facility] Ambulatory Clinics [address] [place] [address] [place] Encounter Diagnosis Allergic rhinitis(Discharge Diagnosis) - 06/17/23 Discharge Disposition: Home or Self Care Allergies, Adverse Reactions, Alerts Substance Reaction Severity Status Tree Nuts Unknown Active Grass Unknown Active Apple fruit Unknown Unknown Active Dust mite Unknown Active Assessment and Plan Future Appointments Medications !-Augmentin 875 mg-125 mg oral tablet 1 tab, Oral, every 12 hr, # 20 tab, 0 Refill(s), [facility]: [facility] #[id number] Start Date: 01/01/23 Stop Date: 01/11/23 Status: Ordered Accolate 10 mg oral tablet 10 mg = 1 tab, Oral, BID, # 60 tab, 2 Refill(s), [facility]acy: [facility] #[id number] Start Date: 01/01/23 Status: Ordered EPINEPHrine 0.3 mg injectable kit 0.3 mg =, IM, Once, # 1 EA, 0 Refill(s) Start Date: 12/31/22 Status: Ordered fexofenadine 180 mg oral tablet 180 mg = 1 tab, Oral, Daily, # 90 tab, 3 Refill(s), [facility]: [facility] #[id number] Start Date: 01/01/23 Stop Date: 12/27/23 Status: [...] BID, # 17 g, 0 Refill(s), Pharmacy: [facility] #[id number] Start Date: 01/01/23 Status: Ordered NexIUM 40 [...] Member Role: Primary Care Physician Address: Address: [place], [place] [address] Care Team Related Persons Name: MIGUEL OLMEDO Address: [place] [address]
--- OUTSIDE RECORDS SUMMARY | 2024-01-09 19:13 | XMS_ITS | Continuity of Care Document ---
Author Name Unknown Organization [facility] Ambulatory Clinics Address [address] [place] [address] Care Team Providers Care Wood Machine Carver Name Role Phone MARBIN BENAVIDES Primary Care Physician [phone] Encounter [facility] NBR [id number] Date(s): 01/01/23 - 01/01/23 [facility] Ambulatory Clinics [address] [place] [address]- Encounter Diagnosis Allergies(Discharge Diagnosis) - 12/31/22 Sinus infection(Discharge Diagnosis) - 01/01/23 Discharge Disposition: Home or Self Care Attending Physician: Ameya Kendrick, Allergies, Adverse Reactions, Alerts Substance Reaction Severity Status Tree Nuts Unknown Active Grass Unknown Active Apple fruit Unknown Unknown Active Dust mite Unknown Active Assessment and Plan Future Appointments Medications !-Augmentin 875 mg-125 mg oral tablet 1 tab, Oral, every 12 hr, # 20 tab, 0 Refill(s), [facility]acy: [facility] #[id number] Start Date: 01/01/23 Stop Date: 01/11/23 Status: Ordered Accolate 10 mg oral tablet 10 mg = 1 tab, Oral, BID, # 60 tab, 2 Refill(s), [facility]acy: [facility] #[id number] Start Date: 01/01/23 Status: Ordered EPINEPHrine 0.3 mg injectable kit 0.3 mg =, IM, Once, # 1 EA, 0 Refill(s) Start Date: 12/31/22 Status: Ordered fexofenadine 180 mg oral tablet 180 mg = 1 tab, Oral, Daily, # 90 tab, 3 Refill(s), [facility] #[id number] Start Date: 01/01/23 Stop Date: 12/27/23 Status: [...] BID, # 17 g, 0 Refill(s), Pharmacy: [facility] #[id number] Start Date: 01/01/23 Status: Ordered NexIUM 40 [...] Effective Dates Status [facility] Informant Allergies Confirmed Active Arthritis Confirmed Active Behcet's disease Confirmed Active Depression Confirmed Active Disease of immune system Confirmed Active Fibromyalgia Confirmed Active Esophageal reflux Confirmed Active Sinus infection Confirmed Active Physician Outpatient Note * Tessa Ndiaye: MODIFY, MODIFY Ameya Kendrick DO: PERFORM, MODIFY Ameya Kendrick DO: MODIFY Event Display: Office Clinic Note Physician Authored Date: [id number] GERALD OLMEDO :1970 Age:52 years Sex:Male Visit Date:01/01/2023 Chief Complaint Established- Restart Allergy Shots History of Present Illness Established patient in the office today to discuss restarting allergy injections. Patient's last shot was 12/28/21 and he was on Vial 2 set 4. Patient reacted??significantly to trees, weeds, grasses,dust mites when he was tested back in 2020. Patient is still on Zyrtec, Pepcid, and Singulair. Patient is having facial pressure, congestion, itchy eyes, headaches, and respiratory issues when layingflat. He does have body aches in the morning as well. Patient does have ear pain. He has been doingnasal rinses. He does think he has a sinus infection. He has been having teeth pain and sinus pain.? He is worse off allergy shots, in the past he has stopped shots and has worsened each time.?? Review of Systems Negative for: no new cardiac, respiratory, GI, , hematologic, neurologic, psychological, allergic, traumatic or endocrine problems except as listed above Physical Exam GENERAL APPEARANCE:??The patient is awake, alert, and oriented and in no acute distress, Appears nutritionally sound, Healthy in appearance, Voice is strong, with no stridor or stertor, Handling secretions without difficulty.?PSYCH:??affect normal, good eye contact, oriented to person, oriented to place, oriented to time.?NEURO:??CN's II-XII grossly intact, Gait is normal, The patient has endpoint nystagmus only.?HEENT:??The patient is normocephalic with a normal facies with cranial nerves 2 through 12 bilaterally equal and intact. Pupils are equal and reactive to light with extraocular movements bilaterally equal and intact. There is no proptosis or enophthalmos,??EARS:, Ear exam reveals normal appearing pinna bilaterally. Mastoids are normal to palpation and nontender bilaterally. the ext ernal canal are patent, without otorrhea, with bilateral TM's mobile with no evidence of middle earfluid, middle ear masses, or retraction pockets.??NOSE:, The inferior turbinates are within normal limits, The middle meati are unremarkable with no polyps, masses or purulent discharge,??ORAL CAVITY:, no trismus, tongue and floor of mouth are normal to inspection and palpation. Mucosa is moist andhealthy throughout. the palate is intact and elevates symmetrically in midline,??OROPHARYNX:, Uvulamidline, soft palate symmetric.?NECK:??There is no palpable lymphadenopathy.?SKIN:??normal across the head and neck.?MUSCULOSKELETAL:??normal gait and station.?? FACE:?? pressure with palpation b/l maxillary Assessment/Plan 1.??Allergies??T78.40XA We discussed that we will restart the shots. He will do them here at [facility]. He was given a sinus rinse sheet and he should start Mar and Accolate and Nasonex. He will start the new regimen after hefinished the Augmentin.? we will dilute and resume shots Ordered: fexofenadine 180 mg oral tablet, 180 mg = 1 tab, Oral, Daily, # 90 tab, 3 Refill(s), Pharmacy: [facility] #[id number] Nasonex 50 mcg/inh nasal spray, 2 sprays, Nasal, BID, # 17 g, 0 Refill(s), Pharmacy: [facility] #[id number] Accolate 10 mg oral tablet, 10 mg = 1 tab, Oral, BID, # 60 tab, 2 Refill(s), Pharmacy: [facility] #[id number] ?? 2.??Sinus infection??J32.9 We discussed that he should start on Augmentin for the infection and continue with nasal rinses.?? will wait until antibiotics over until changing allergy meds Ordered: !-Augmentin 875 mg-125 mg oral tablet, 1 tab, Oral, every 12 hr, # 20 tab, 0 Refill(s), Pharmacy: [facility] #[id number] ?? Follow Up Instructions Allergy shots Problem List/Past Medical History Ongoing Allergies Arthritis Behcet's disease Depression Disease of immune system Esophageal reflux Fibromyalgia Historical No qualifying data Medications EPINEPHrine 0.3 mg injectable kit, 0.3 mg, IM, Once fluticasone propionate Linzess 145 mcg oral capsule, 145 mcg= 1 cap, Oral, Daily Lyrica 25 mg oral capsule, 25 mg= 1 cap, Oral, Daily methotrexate 2.5 mg oral tablet, 2.5 mg= 1 tab, Oral, every week Metoprolol Tartrate 25 mg oral tablet NexIUM 40 mg oral delayed release capsule, 40 mg= 1 cap, Oral, Daily Remicade 100 mg intravenous injection, 3 mg/kg, IV, Once Singulair 10 mg oral tablet, 10 mg= 1 tab, Oral, Daily ZyrTEC 10 mg oral tablet, 10 mg= 1 tab, Oral, Daily Allergies Apple fruit??(Unknown) Dust mite Grass Tree Nuts Electronically Signed on 01/01/23 11:35 AM Ameya Kendrick, Patient Care team information Care Team Personnel Name: MARBIN BENAVIDES Position: No Access Member Role: Primary Care Physician Address: Address: [place], [place] [address]
--- OUTSIDE RECORDS SUMMARY | 2024-01-09 19:13 | XMS_ITS | Continuity of Care Document ---
Author Name Unknown Organization [facility] Ambulatory Clinics Address [address] [place] [address] Care Team Providers Care Lean Sensei Name Role Phone MARBIN BENAVIDES Primary Care Physician [phone] Encounter [facility] NBR [id number] Date(s): 09/02/23 - 09/02/23 [facility] Ambulatory Clinics [address] [place], [place] [address] Encounter Diagnosis Allergic rhinitis(Discharge Diagnosis) - 09/02/23 Discharge Disposition: Home or Self Care Allergies, Adverse Reactions, Alerts Substance Reaction Severity Status Tree Nuts Unknown Active Grass Unknown Active Apple fruit Unknown Unknown Active Dust mite Unknown Active Assessment and Plan Future Appointments Medications !-Augmentin 875 mg-125 mg oral tablet 1 tab, Oral, every 12 hr, # 20 tab, 0 Refill(s), Pharmacy: [facility] #[id number] Start Date: 01/01/23 Stop Date: 01/11/23 Status: Ordered Accolate 10 mg oral tablet 10 mg = 1 tab, Oral, BID, # 60 tab, 2 Refill(s), Pharmacy: [facility] #[id number] Start Date: 01/01/23 Status: Ordered EPINEPHrine 0.3 mg injectable kit 0.3 mg =, IM, Once, # 1 EA, 0 Refill(s) Start Date: 12/31/22 Status: Ordered fexofenadine 180 mg oral tablet 180 mg = 1 tab, Oral, Daily, # 90 tab, 3 Refill(s), Pharmacy: [facility] #[id number] Start Date: 01/01/23 Stop Date: 12/27/23 Status: [...] BID, # 17 g, 0 Refill(s), Pharmacy: [facility] #[id number] Start Date: 01/01/23 Status: Ordered NexIUM 40 [...] Member Role: Primary Care Physician Address: Address: [place], [place] [address] Care Team Related Persons Name: MIGUEL OLMEDO Address: [place] [address]
--- OUTSIDE RECORDS SUMMARY | 2024-01-09 19:13 | XMS_ITS | Continuity of Care Document ---
Author Name Unknown Organization [facility] Ambulatory Clinics Address [address] [place] [address] Care Team Providers Care Senior Business Process Analyst Name Role Phone MARBIN BENAVIDES Primary Care Physician Encounter [facility] NBR [id number] Date(s): 07/01/23 - 07/01/23 [facility] Ambulatory Clinics [address] [place] [address] [place] Encounter Diagnosis Allergic rhinitis(Discharge Diagnosis) - 07/01/23 Discharge Disposition: Home or Self Care Allergies, Adverse Reactions, Alerts Substance Reaction Severity Status Tree Nuts Unknown Active Grass Unknown Active Dust mite Unknown Active Apple fruit Unknown Unknown Active Assessment and Plan Future Appointments Medications !-Augmentin 875 mg-125 mg oral tablet 1 tab, Oral, every 12 hr, # 20 tab, 0 Refill(s), Pharmacy: [facility] #[id number] Start Date: 01/01/23 Stop Date: 01/11/23 Status: Ordered Accolate 10 mg oral tablet 10 mg = 1 tab, Oral, BID, # 60 tab, 2 Refill(s), Pharmacy: [facility] #[id number] Start Date: 01/01/23 Status: Ordered EPINEPHrine 0.3 mg injectable kit 0.3 mg =, IM, Once, # 1 EA, 0 Refill(s) Start Date: 12/31/22 Status: Ordered fexofenadine 180 mg oral tablet 180 mg = 1 tab, Oral, Daily, # 90 tab, 3 Refill(s), Pharmacy: [facility] #[id number] Start Date: 01/01/23 Stop Date: 12/27/23 Status: [...] BID, # 17 g, 0 Refill(s), Pharmacy: [facility] #[id number] Start Date: 01/01/23 Status: Ordered NexIUM 40 [...] Member Role: Primary Care Physician Address: Address: [place], [place] [address] Care Team Related Persons Name: MIGUEL OLMEDO Address: [place] [address]
--- OUTSIDE RECORDS SUMMARY | 2024-01-09 19:13 | XMS_ITS | Continuity of Care Document ---
Author Name Unknown Organization [facility] Ambulatory Clinics Address [address] [place] [address] Care Team Providers Care Certified Hand Therapist Name Role Phone MARBIN BENAVIDES Primary Care Physician Encounter [facility] NBR [id number] Date(s): 04/08/23 - 04/08/23 [facility] Ambulatory Clinics [address] [place], [place] [address] Discharge Disposition: Home or Self Care Allergies, Adverse Reactions, Alerts Substance Reaction Severity Status Tree Nuts Unknown Active Grass Unknown Active Apple fruit Unknown Unknown Active Dust mite Unknown Active Medications !-Augmentin 875 mg-125 mg oral tablet 1 tab, Oral, every 12 hr, # 20 tab, 0 Refill(s), Pharmacy: [facility] #[id number] Start Date: 01/01/23 Stop Date: 01/11/23 Status: Ordered Accolate 10 mg oral tablet 10 mg = 1 tab, Oral, BID, # 60 tab, 2 Refill(s), Pharmacy: [facility] #[id number] Start Date: 01/01/23 Status: Ordered EPINEPHrine 0.3 mg injectable kit 0.3 mg =, IM, Once, # 1 EA, 0 Refill(s) Start Date: 12/31/22 Status: Ordered fexofenadine 180 mg oral tablet 180 mg = 1 tab, Oral, Daily, # 90 tab, 3 Refill(s), Pharmacy: [facility] #[id number] Start Date: 01/01/23 Stop Date: 12/27/23 Status: [...] BID, # 17 g, 0 Refill(s), Pharmacy: [facility] #[id number] Start Date: 01/01/23 Status: Ordered NexIUM 40 [...] Member Role: Primary Care Physician Address: Address: [place], [place] [address] Care Team Related Persons Name: MIGUEL OLMEDO Address: [place] [address]
--- OUTSIDE RECORDS SUMMARY | 2024-01-09 19:13 | XMS_ITS | Continuity of Care Document ---
Author Name Unknown Organization [facility] Ambulatory Clinics Address [address] [place] [address] Care Team Providers Care Account Engineer Name Role Phone MARBIN BENAVIDES Primary Care Physician [phone] Encounter [facility] NBR [id number] Date(s): 01/28/23 - 01/28/23 [facility] Ambulatory Clinics [address] [place] [address]- Encounter Diagnosis Allergic rhinitis(Discharge Diagnosis) - 01/28/23 Allergic rhinitis, unspecified(Final) - Discharge Disposition: Home or Self Care Allergies, Adverse Reactions, Alerts Substance Reaction Severity Status Tree Nuts Unknown Active Grass Unknown Active Apple fruit Unknown Unknown Active Dust mite Unknown Active Assessment and Plan Future Appointments Medications !-Augmentin 875 mg-125 mg oral tablet 1 tab, Oral, every 12 hr, # 20 tab, 0 Refill(s), Pharmacy: [facility] #[id number] Start Date: 01/01/23 Stop Date: 01/11/23 Status: Ordered Accolate 10 mg oral tablet 10 mg = 1 tab, Oral, BID, # 60 tab, 2 Refill(s), Pharmacy: [facility] #[id number] Start Date: 01/01/23 Status: Ordered EPINEPHrine 0.3 mg injectable kit 0.3 mg =, IM, Once, # 1 EA, 0 Refill(s) Start Date: 12/31/22 Status: Ordered fexofenadine 180 mg oral tablet 180 mg = 1 tab, Oral, Daily, # 90 tab, 3 Refill(s), Pharmacy: [facility] #[id number] Start Date: 01/01/23 Stop Date: 12/27/23 Status: [...] BID, # 17 g, 0 Refill(s), Pharmacy: [facility] #[id number] Start Date: 01/01/23 Status: Ordered NexIUM 40 [...] Member Role: Primary Care Physician Address: Address: [place], [place] [address]
--- OUTSIDE RECORDS SUMMARY | 2024-01-09 19:13 | XMS_ITS | Continuity of Care Document ---
Author Name Unknown Organization [facility] Ambulatory Clinics Address [address] [place] [address] Care Team Providers Care Material Assembler Name Role Phone MARBIN BENAVIDES Primary Care Physician [phone] Encounter [facility] NBR [id number] Date(s): 02/04/23 - 02/04/23 [facility] Ambulatory Clinics [address] [place] [address]- Encounter Diagnosis Allergic rhinitis(Discharge Diagnosis) - 02/04/23 Allergic rhinitis, unspecified(Final) - Discharge Disposition: Home or Self Care Allergies, Adverse Reactions, Alerts Substance Reaction Severity Status Tree Nuts Unknown Active Grass Unknown Active Apple fruit Unknown Unknown Active Dust mite Unknown Active Assessment and Plan Future Appointments Medications !-Augmentin 875 mg-125 mg oral tablet 1 tab, Oral, every 12 hr, # 20 tab, 0 Refill(s), Pharmacy: [facility] #[id number] Start Date: 01/01/23 Stop Date: 01/11/23 Status: Ordered Accolate 10 mg oral tablet 10 mg = 1 tab, Oral, BID, # 60 tab, 2 Refill(s), Pharmacy: [facility] #[id number] Start Date: 01/01/23 Status: Ordered EPINEPHrine 0.3 mg injectable kit 0.3 mg =, IM, Once, # 1 EA, 0 Refill(s) Start Date: 12/31/22 Status: Ordered fexofenadine 180 mg oral tablet 180 mg = 1 tab, Oral, Daily, # 90 tab, 3 Refill(s), Pharmacy: [facility] #[id number] Start Date: 01/01/23 Stop Date: 12/27/23 Status: [...] BID, # 17 g, 0 Refill(s), Pharmacy: [facility] #[id number] Start Date: 01/01/23 Status: Ordered NexIUM 40 [...] Member Role: Primary Care Physician Address: Address: [place], [place] [address]
--- OUTSIDE RECORDS SUMMARY | 2024-01-09 19:13 | XMS_ITS | Continuity of Care Document ---
Author Name Unknown Organization [facility] Ambulatory Clinics Address [address] [place] [address] Care Team Providers Care Material Yard Clerk Name Role Phone MARBIN BENAVIDES Primary Care Physician Encounter [facility] NBR [id number] Date(s): 05/20/23 - 05/20/23 [facility] Ambulatory Clinics [address] [place] [address] [place] Encounter Diagnosis Allergic rhinitis(Discharge Diagnosis) - 05/20/23 Discharge Disposition: Home or Self Care Allergies, Adverse Reactions, Alerts Substance Reaction Severity Status Tree Nuts Unknown Active Grass Unknown Active Apple fruit Unknown Unknown Active Dust mite Unknown Active Assessment and Plan Future Appointments Medications !-Augmentin 875 mg-125 mg oral tablet 1 tab, Oral, every 12 hr, # 20 tab, 0 Refill(s), Pharmacy: [facility] #[id number] Start Date: 01/01/23 Stop Date: 01/11/23 Status: Ordered Accolate 10 mg oral tablet 10 mg = 1 tab, Oral, BID, # 60 tab, 2 Refill(s), Pharmacy: [facility] #[id number] Start Date: 01/01/23 Status: Ordered EPINEPHrine 0.3 mg injectable kit 0.3 mg =, IM, Once, # 1 EA, 0 Refill(s) Start Date: 12/31/22 Status: Ordered fexofenadine 180 mg oral tablet 180 mg = 1 tab, Oral, Daily, # 90 tab, 3 Refill(s), Pharmacy: [facility] #[id number] Start Date: 01/01/23 Stop Date: 12/27/23 Status: [...] BID, # 17 g, 0 Refill(s), Pharmacy: [facility] #[id number] Start Date: 01/01/23 Status: Ordered NexIUM 40 [...] Member Role: Primary Care Physician Address: Address: [place], [place] [address] Care Team Related Persons Name: MIGUEL OLMEDO Address: [place] [address]
--- OUTSIDE RECORDS SUMMARY | 2024-01-09 19:13 | XMS_ITS | Continuity of Care Document ---
Author Name Unknown Organization [facility] Address [address] [place], [place] [id number] Care Team Providers Care Flume Maker Name Role Phone Cecy Rasmussen Primary Care Physician Arely Love Unavailable Unavailable Zaida Tucker Unavailable Unavailable Elo Gutierrez Unavailable Unavailable Encounter [facility] [id number] Date(s): 01/02/24 - 01/02/[address] Encounter Diagnosis Vitamin D deficiency(Discharge Diagnosis) - 01/02/24 Myalgia(Discharge Diagnosis) - 01/02/24 Type 2 diabetes mellitus(Discharge Diagnosis) - 01/02/24 Dyspnea(Discharge Diagnosis) - 01/02/24 Edema(Discharge Diagnosis) - 01/02/24 Discharge Disposition: Home or Self Care Attending Physician: Cecy Rasmussen MD Admitting Physician: Cecy Rasmussen MD Referring Physician: Cecy Rasmussen MD Allergies, Adverse Reactions, Alerts Substance Criticality Severity Reaction Reaction Severity Status statins High criticality Moderate Muscle pain A ctive Nuts High criticality Severe Anaphylaxis A ctive Oranges High criticality Severe Act eber Apple fruit High criticality Severe Anaphylaxis Active Assessment and Plan Future Appointments Diagnostic Tests Pending * Miscellaneous Lab Test 01/02/24 Future Scheduled Tests Laboratory* D-Dimer 12/29/23 Immunizations Given and Recorded Vaccine Date Status Refusal Reason influenza virus vaccine, inactivated 07/04/22 Rayshawn rded influenza virus vaccine, inactivated 04/04/21 Rayshawn rded influenza virus vaccine, inactivated 1 07/05/20 Re corded influenza virus vaccine, inactivated 2 05/06/19 Re corded influenza virus vaccine, inactivated 3 07/03/18 Re corded influenza virus vaccine, inactivated 4 05/09/17 Re corded influenza virus vaccine, inactivated 5 05/31/16 Re corded meningococcal polysaccharide vaccine 12/11/21 Rayshawn rded albumin human 12/11/21 Recorded SARS-CoV-2 (COVID-19) mRNA-1273 vaccine 09/20/21 R ecorded SARS-CoV-2 (COVID-19) mRNA-1273 vaccine 6 04/04/21 Recorded SARS-CoV-2 (COVID-19) mRNA-1273 vaccine 11/14/20 R ecorded SARS-CoV-2 (COVID-19) mRNA-1273 vaccine 7 10/17/20 Recorded SARS-COV-2 (COVID-19) vaccine, unspecifi 10/13/20 Recorded pneumococcal 13-valent conjugate vaccine 02/25/19 Recorded pneumococcal 23-polyvalent vaccine 8 10/15/17 Rayshawn rded hepatitis B adult vaccine 01/18/13 Recorded hepatitis B adult vaccine 08/21/12 Recorded hepatitis B adult vaccine 07/21/12 Recorded tetanus/diphth/pertuss (Tdap) adult/adol 08/10/12 Recorded 1Result Comment: Lead Massage Therapist: [employer] 2Result Comment: Lead Massage Therapist: [employer] 3Result Comment: Lead Massage Therapist: [employer] 4Result Comment: Lead Massage Therapist: [employer] 5Result Comment: Lead Massage Therapist: [employer] 6Result Comment: Lead Massage Therapist: [employer] 7Result Comment: Route: Unknown 8Result Comment: Lead Massage Therapist: [employer] Medications Albuterol (Eqv-Ventolin HFA) 90 mcg/inh inhalation aerosol See Instructions, INHALE 2 PUFFS BY MOUTH EVERY 4 HOURS NEEDED FOR WHEEZING, # 8.5 g, 11 Refill(s), Pharmacy: [id number], 177.8, cm, 08/18/23 12:57:00 EST, Height, 116.57, kg, 08/18/23 13:01:00 EST, Weight Dosing Start Date: 09/08/23 Status: Ordered amLODIPine 10 mg oral tablet 10 mg = 1 tab, Oral, Daily, # 30 tab, 3 Refill(s), Pharmacy: [id number], 177.8, cm, 08/18/23 12:57:00 EST, Height, 116.57, kg, 08/18/23 13:01:00 EST, Weight Dosing Start Date: 11/20/23 Status: Ordered chlorthalidone 25 mg oral tablet 25 mg = 1 tab, Oral, Daily, # 30 tab, 3 Refill(s), Pharmacy: [id number], 177.8, cm, 08/18/23 12:57:00 EST, Height, 116.57, kg, 08/18/23 13:01:00 EST, Weight Dosing Start Date: 11/20/23 Status: Ordered Colace 100 mg oral capsule 100 mg = 1 cap, Oral, BID, PRN as needed for constipation, # 20 cap, 0 Refill(s) Start Date: 08/13/23 Status: Ordered EPINEPHrine 0.3 mg injectable kit See Instructions, INJECT INTRAMUSCULARLY IF NEEDED FOR ANAPHLAXIS, 0 Refill(s) Start Date: 08/13/23 Status: Ordered esomeprazole 40 mg oral delayed release capsule 40 mg = 1 cap, Oral, BID, # 60 cap, 3 Refill(s), Pharmacy: [facility], 177.8, cm, 08/18/23 12:57:00 EST, Height, 116.57, kg, 08/18/23 13:01:00 EST, Weight Dosing Start Date: 11/12/23 Stop Date: 03/11/24 Status: Ordered ezetimibe 10 mg oral tablet 10 mg = 1 tab, Oral, Daily, 0 Refill(s) Start Date: 08/13/23 Status: Ordered fluticasone 50 mcg/inh nasal spray 2 sprays, BID, 0 Refill(s) Start Date: 08/13/23 Status: Ordered folic acid 1 mg oral tablet 1 mg = 1 tab, Oral, Daily, Rheum Rx, 0 Refill(s) Start Date: 08/13/23 Status: Ordered FREESTYLE JASON SENSOR 14D KIT FREESTYLE JASON SENSOR 14D KIT, See Instructions, APPLY SENSOR TO BACK OF UPPER ARM REMOVE AND REPLACE EVERY 14 DAYS USE WITH DEVICE(READER), # 2 EA, 5 Refill(s), Pharmacy: [facility], 177.8, cm, 08/18/23 12:57:00 EST, Height, 116.57, kg, 08/18/23 13:01:00 EST, Weight Dosing Start Date: 09/01/23 Status: Ordered hydrocortisone 2.5% topical ointment Apply to rash on face, armpit, groin two times daily per [facility] D/C Summary, 0 Refill(s) Start Date: 08/13/23 Status: Ordered irbesartan 300 mg oral tablet 300 mg = 1 tab, Oral, Daily, # 30 tab, 3 Refill(s), Pharmacy: [facility], 177.8, cm, 08/18/23 12:57:00 EST, Height, 116.57, kg, 08/18/23 13:01:00 EST, Weight Dosing Start Date: 11/12/23 Status: Ordered Linzess 290 mcg oral capsule 1 cap, Oral, Daily, # 30 cap, 2 Refill(s), Pharmacy: [facility], 177.8, cm, 12/29/23 11:26:00 EDT, Height, 120.02, kg, 12/29/23 11:30:00 EDT, Weight Dosing Start Date: 12/29/23 Status: Ordered methotrexate 2.5 mg oral tablet 15 mg = 6 tab, Oral, every week, rheum rx, 0 Refill(s) Start Date: 08/13/23 Status: Ordered Metoprolol Succinate ER 50 mg oral tablet, extended release 50 mg = 1 tab, Oral, Daily, # 90 tab, 3 Refill(s), Pharmacy: [id number] Start Date: 07/01/23 Status: Ordered MiraLax oral powder for reconstitution 17 g, Oral, Daily, # 238 g, 0 Refill(s) Start Date: 08/13/23 Status: Ordered Pepcid 40 mg oral tablet 40 mg = 1 tab, Oral, Daily, 0 Refill(s) Start Date: 08/13/23 Status: Ordered Remicade 100 mg intravenous injection See Instructions, per rheum , for behcet 5mg/kg q 6 wk rheum rx, 0 Refill(s) Start Date: 08/13/23 Status: Ordered saccharomyces boulardii lyo 250 mg oral capsule 250 mg = 1 cap, Oral, BID, PRN as needed for loose stool, # 10 cap, 0 Refill(s) Start Date: 08/13/23 Status: Ordered Singulair 10 mg oral tablet See Instructions, 10 mg qd for allergies Dr Kendrick, # 30 tab, 2 Refill(s), Pharmacy: [facility], 177.8, cm, 12/29/23 11:26:00 EDT, Height, 120.02, kg, 12/29/23 11:30:00 EDT, Weight Dosing Start Date: 12/29/23 Status: Ordered Symbicort 160 mcg-4.5 mcg/inh inhalation aerosol 2 puffs, Inhale, BID, rinse mouth and throat after use, # 10.2 g, 0 Refill(s), Pharmacy: [facility] Start Date: 08/01/23 Status: Ordered traZODone 50 mg oral tablet 50 mg = 1 tab, Oral, every night at bedtime, # 30 tab, 2 Refill(s), Pharmacy: [facility], 177.8, cm, 12/29/23 11:26:00 EDT, Height, 120.02, kg, 12/29/23 11:30:00 EDT, Weight Dosing Start Date: 12/29/23 Status: Ordered triamcinolone 0.025% topical ointment 1 adria, Topical, BID, # 15 g, 0 Refill(s) Start Date: 08/13/23 Stop Date: 08/27/23 Status: Ordered turmeric 500 mg oral capsule 500 mg = 1 cap, Oral, Daily, # 60 cap, 0 Refill(s), other reason (Rx) Start Date: 12/29/23 Status: Ordered Tylenol 8 Hour 650 mg oral tablet, extended release See Instructions, Take 2 tablets twice a day by oral route for 30 days. uses as needed, 0 Refill(s) Start Date: 08/13/23 Status: Ordered Vitamin D2 1.25 mg (50,000 intl units) oral capsule 50,000 IntlUnit = 1 cap, Oral, every week, 0 Refill(s) Start Date: 08/13/23 Status: Ordered ZyrTEC 10 mg oral tablet 10 mg = 1 tab, Oral, Daily, 0 Refill(s) Start Date: 08/13/23 Status: Ordered Problem List Condition Confirmation Course Effective Dates Status H ealth Status Informant Abdominal pain 1 Confirmed Active Acetabular labrum tear 2 Confirmed Active Allergic rhinitis 3 Confirmed Active Anxiety disorder 4 Confirmed Active Arthritis 5 Confirmed Active Bacterial overgrowth syndrome 6 Confirmed Active Behcet's syndrome 7 Confirmed Active Obesity (BMI 30-39.9) 8, 9 Confirmed Active Bilateral carpal tunnel syndrome 10 Confirmed Active Cervical disc disorder with radiculopathy 11 Confirmed Active Chronic post-traumatic stress disorder 12 Confirmed Active Constipation 13 Confirmed Active Depressive disorder 14 Confirmed Active Fibromyalgia 15 Confirmed Active Gallstone 16 Confirmed Active Chronic GERD 17 Confirmed Active Headache 18 Confirmed Active Hyperlipidemia 19 Confirmed Active Hypertensive disorder 20 Confirmed Active Insomnia 21 Confirmed Active Intertrigo 22 Confirmed Active Irritable bowel syndrome 23 Confirmed Active Low back pain 24 Confirmed Active Migraine 25 Confirmed Active Myalgia Confirmed Active Near syncope 26 Confirmed Active Neck pain 27 Confirmed Active Numbness and tingling sensation of skin 28 Confirmed Active Obstructive sleep apnea syndrome 29 Confirmed Active Knee pain 30 Confirmed Active Preventative health care 31 Confirmed Active Polyp of colon 32 Confirmed Active Bilateral posterior uveitis Confirmed Active Reactive airway disease 33 Confirmed Active Rupture of rotator cuff of shoulder 34 Confirmed Active Shoulder joint pain 35 Confirmed Active Sickle cell trait 36 Confirmed Active Spinal stenosis of lumbar region 37 Confirmed Active Steatosis of liver 38 Confirmed Active Syncope 39 Confirmed Active Type 2 diabetes mellitus 40 Confirmed Active Uveitis 41 Confirmed Active Vertigo 42 Confirmed Active Vitamin D deficiency 43 Confirmed Active Dry skin 44 Confirmed Active 1Had work up CT A/P 06/2008 NL , egd 07/2008 nl including neg duodenal bx , had H. Pylori but no ulcers so he was not treated- TTG antibodies was positive IgG but all 3 others were normal and celiac HLA test negative in 04/03. UGI 2009 NL - EGD 04/03 H. Pylori gastritis treated and constipation /IBS felt contributing to pain- tested positive for small intestinal bacterial overgrowth 03/05- EGD with superficial erosive gastropathy and nl colo 03/08 From 01-29-2019 visit: Physical exam shows pain in all the quadrants and his abdomen is somewhat rigid and distended. He does have a diagnosis of fibromyalgia which complicates matters. Reassuringly there is no change in bowel habits/fever/chills and he has had a previous appendectomy. 2MRI LEFT 04/13/20 Left labral tear- per ortho non surgical 3allergies environmental and for food and getting shots for grass , dustmite and pollen started in ~12/01- CT 11/27 Mucous RETENTION CYST From 02-10-2023 visit: continue ALLERGY meds ,loratidine, singulair and flonase and allergy shots - refill epipen for prn use 4From 11-13-2021 visit: Pt with history of PTSD and anxiety, Multiple ACEs. He came off duloxetine due to side effect of throat dryness and has been managing emotionally better , occ practicing mindfulness and breathing techniques- 5Lspine 09/2008 mild DDD- knee pain left MRI 02/06/16 Left knee show chondromalacia of medial tibial plateau- Lyme titer 06/06 negative From 07-26-2020 visit: pt with mutiple generator of pain due to connective tissue disease /behcets syndrome, degenerative arthritis and diffuse fibromyalgia as well as spinal stenosis - heading soon to have KARTHIK- continue celebrex, prn tylenol and prn tizanidine- he would like trying again lyrica 25 mg for FBM adn stenosis- He is on remicade, MTX for Behcet disease , diagnosed and treated by rheuma- Given upcoming surgery, I recommend checking with ortho and rheum on how to manage these 2 drugs which are immunosuppressants and can increase the risk for infection. I also did recommend dental check up before surgery as he does not have any dental care at all and heading for KARTHIK and is immunocompromised 6tested positive for small intestinal bacterial overgrowth 03/05, given 2 trials of rifaximin 14 d in04/05 - tested for celiac disaease antibodies and was negative 05/05 From 10-19-2017 visit: treated and resolved w 14 d of atb - recurrent Oral behcets , arthralgia and uveitis triad per Rheum , trial of colchicine From 08-28-2022 visit: Pt is followed by rheum and has been non compliant with his med for 6 m- recently placed back on methotrexate, and will be restarted on IV infusion of inflectra- continue follow-up with rheumatology.- urged adherence - no active oral or genital ulcers- recentlynl cbc, crp , esr in 06/2022 8From 02-25-2023 visit: Pt with obesity and [place] [facility] [place] 2[place]em[place]- feels less bloated but wt loss now at snail pace- being seen by endocrine for work up- - he is still a candidate for gastric bypass surgeryin future- he has multiple comorbidities related to his obesity including steatosis, sleep apnea, back pain, diabetes and hypertension. 9From 04-12-2023 visit: Onset Obesity in mid life. Family No other members Obese. including several other relatives who have migrated to [facility] from [place]. history and PE fail to reveal any Clues screen for secondary Hypothyroid with FT4 Free T4 1.11 ng/dl wnl ;;; GOOD screen for subtle cushings with saliva Cortisol 12 mn (times two) ++abnl screen for male hypogonadism estosterone total 348 ng/dl (193 - 740 ng/dl OKay ' Some subtle features suggest Cortisol excess plus labs : jose CTS dx by NCS, mod on left and mild on RT - he is starting to use splints From 11-13-2021 visit: jose CTS dx by NCS - he is better and uses splints when he flares with relief- : severe neck pain and some rt arm pain weakness , MRI NF narrowing C6-7 on rt in 10/03- he should be out of work until spine eval and treatment is completed. they see him for spine consult next week, in mean time another course of steroid will be started and increase gabapentin to 300 mg qid and given prn oxycodone # 10 - Pt had mild C6-7 NF narrowing last year and is now moderate with shooting pain down arm but additionally there seem to be a componenet of muscle tensiom, myofascial pain and discrete pain to rt shoulder per say as if mixed picture of RCT and cervical radiculopathy-EMG 11/03 inactive chronic RT C7 radiculopathy, no evidence of compression neuropathy- justine 12/[address] Altamirano- From 02-25-2023 visit: Pt with known history of C6-C7 foraminal stenosis and radiculopathy. He had nerve conduction studies confirming that.We started him on gabapentin for that and will increase dose now for neuropathic pain in feet - in past Cymbalta caused dry mouth Consider repeat cspine MRI TO R.O Myelopathy but for now upper extremities syx are at bay 12From 11-13-2021 visit: chronic PTSD due to many childhood adversity ASSOCIATED with hi chronic stress and somatic diseases- We discussed previously impact of ACEs on chronic stress and chronic disease -he has been doing well with daily breathing and relaxation technique/meditation/body scan session - he feels it helps and will continue that , no need to take meds 13From 08-28-2022 visit: he has constipation on Linzess 290 mcg qd prn and prune daily with colace daily and miralax prn butunfortunately still constipated - i recommend adding flax seed ground powder to his soups but he has not - work up in past show nl colo 2018 14From 11-13-2021 visit: Symptoms are improved , feeling better and emotionally more upbeat lately - continue relaxing mindfulness and exercise - He did not tolerate cymbalta due to s/e . I prefer holding off trying new meds unless GI syx settle- Once things settle, we can try Lyrica as an option. I feel TCA WILL worsen his GI syx.He agrees about holding off meds- This pain has been compounded by the myositis he developped on statins and that is improved off meds. From 11-13-2021 visit: Patient reports his bodily aches have been tolerable - he did not start lyrica and is off duloxetine bt doing well - sometimes practicing breathing and meditation for stress management and gentle stretching - he did few reiki/massage sessions which seem to be helpful at the time but no f.u scheduled 16SEEN ON CT CHEST incidentally, asyx 05/06- EGD 07/2008 NL EXCEPT bx positive h.Pylori- EGD 04/03 positive H pylori gastritis treated with Antibiotics- Merchant 05/03 shows significant reflux on daily ppi therapy so inc to bid- He had breath test positive 04/05 for Hpylori , not treated as they are testing for Hpylori again in 2015 by stool, thoi. 10/08/16 GI consult cont. nexium bid s/p hpy irradication- EGD 02/23/19: erosive gastropathy and nl esophagus- merchant deployed- HH, nl duodenum and MERCHANT test negative for acidic reflux 02/2019 From 01-13-2023 visit: patient on nexium 40 mg bid and heartbun is better, still having heartburn breakthrough syx but notas back and using Maalox as needed for heartburn instead of Tums and avoids cold beverage as it could be causing spasm - He has hx of chronic HANNAH mixed type of tension/migraines and now with posterior HANNAH , quite tender and work up reassuring but does confirm DDD and neural foraminal narrowing in neck and Tspine. He is tender throughout that area and also over occipital area . Question skeletal origin cervicalgia or occipital neuralgia or a complex form of migraines, or hypertensive encephalopathy- Start treatment for combination of possibilities including a course of prednisone and NSAIDS but will changehim to diclofenac which is stronger and make sure he is on ppi and take them with food. Consider adding prn triptans but with his labile BP and his neuro syx , I will hold off. Add nortryptylline andpropranolol for prophylaxis and prn flexeril as well for muscle spasm, and treat BP as below. KEEP neuro appt , may benefit from injection in spine or occipital area for neuralgia . MRI head and MR venogram 10/02 nl except chronic nonspecific white matter changes likely sequelae of remote insult- LP10/02 nl- MRI brain 05/13/17 stable pattern of T2 hyperintensities primarily posteriorly in periatrial region jose, mucosal retention cyst in max sinuses- Cspine XR 05/06 No obvious cause for HANNAH and dizziness- From 02-16-2018 visit: Pt with hx of migraine, this had improved on topiramate and with tx of ASHLEY - Continue same for now - eye strain seems to trigger HANNAH lately - he is going to f/u with eye doctor and is using uveitis drops - i am holding off work up of the lesion seen on CT until it gets reviewed by neuro and encouraged that he discussed it with neuro who also has MRI imaging for comparison 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 Start propranolol as this would also help in migraine prevention From 04-08-2023 visit: fairly well controlled.. systolic above ideal for patients with DM tendency Now on four Meds - He has HANNAH and fibromyalgia and poor sleep which would potentiate both, we need to really get this under control . 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 single dad and stressed quite a bit with trying to care for children and possibly has an element of PTSD which may get better on this- He was told if this does not make him sleep enough then he could take a prn valium too From 11-12-2022 visit: sleep is interrupted due to issues with cpap, still using that , he will try again melatonin and heplans on doing that 22From 02-02-2020 visit: patient has a rash of intertrigo without Margaux, recommend currently to continue keeping area dry,use Goldbond powder and call if rash gets worse or itchy or red to get treatment with nystatin 23predominat constipation /IBS causing pain , colo 04/03 neg except 2TA, given bentyl , linzess, probiotics From 08-28-2022 visit: Diagnosed by GI to have IBS-he has constipation which persist despite Linzess 290 mcg qd prunes daily with colace daily and miralax prn as well as probiotics - he was recommended to add ground flaxseed to his soup and hydrate more 24MRI 02/06/16 Lspine show congenital spinal stenosis , epidural lipomatosis and facet hypertrophy with mild to moderate NF stenosis jose. L4-5, L5-S1- NCS 03/05 no evidence of left sided LS radiculopathyyet difficult study due to body size- justine done on left L4-5 for radicular pain on 04/16/16 DIFFICULTNCS 10/04 due to severe pain but from what as completed, no evidence of radiculopathy on left side- 10/04:He is evaluated at pain clinic and MBB and possible RFA offered - pt declined this option From 07-08-2020 visit: hx of LBP and spinal + NF stenosis on MRI- has hx of radicular syx and syx with walk or stand but not with sitting - suggestive of pseudoclaudication- no neuro deficit-he was evaluated by ortho and spine surgeon and is not a candidate for spine surgery but they recommend hip surgery to help with load on spine He would like to continue celebrex 200 mg daily which provided some relief and is tolerated and tizanidine at bedtime to take for muscle relaxant From 11-13-2021 visit: Pt is off propranolol and off topamax 200 mg , and off rizatriptan prn and doing well off meds - - continue cPAP -Migraines are being managed by neuro and are less frequent and less severe and not aslasting so he has not needed triptans much- 26From 06-08-2017 visit: Pt reports he fell today after feeling dizzy - he has nystagmus today- i also was able to bring on the dizzy spell with horizontal gaze- i feel his dizziness is vertiginous but history remains vague and he reports some palpitations with the dizziness- therefore plan to get a holter x 48h to correlate with his daily syx - also push fluids and keep appt for stress echo , consider tilt test or ziopatch as next step or ambulatory BP monitor if syx continues - -hospitalized with HANNAH, and pain in upper back and neck and is quite tender, seems MSK and work up reassuring neurologically but does confirm DDD and neural foraminal narrowing in neck and Tspine . He is tender throughout that area and also over traps and occipital scalp area . At this point in time , start steroid, NSAIDS, FLEXERIL and refer to PT , RECOMMEND ICING and consider injection- 09/06/15 MRI C-spine mild R canal narrowing at C6-7 (stable), mod R NF narrowing at C7-T1, worse c/w 10/02 stick with plan of Spine Ctr- MRI tpsine nl 10/02 - Neck better after sx From 02-16-2018 visit: neck pain likely skeletal and no meningismus- no signs of meningitis such as fever - treated with prednisone taper and improved reported tingling , numbness in legs- repeat NCS pending- work up show nl TFT, B12, but monoclonal band on spep and hi a1c 6.6%, neg lyme and low vit D From 10-19-2017 visit: pt reports tingling and numbness in legs and hands- Initial NCS for legs was not conclusive- repeatNCS pending- upper extremities showed CTS- work up so far was concerning for hi A1C 6.6%- rept A1C is nl - on tylenol for pain syx 29sleep eval CONSULT snoring and apnea, and RLS along with shift work sleep disorder- 11/04: in lab sleep study: Moderately severe ASHLEY AHI 18, annalisa o2sat 71%, started on auto PAP 6-18 cwp 01/04 at f/u: Has started using auto CPAP 6-18 cwp- he gets 4.5 hr of sleep and BP and HANNAH are better but still sleepy at work and fears of job loss- MOdafinil 100 mg 1-2 qd started and pt to use PAP any time he sleeps with plans to do fine tuning PAP titration study soon- PAP titration 02/03 optimal pressure was found to be 13- 14 cwp- Titration study auto cpap 11-18 cwp on 12/2022- From 02-25-2023 visit: dx in Summer 2016 - Pt has been compliant with PAP , energy is better but it appears his [facility] Orth[facility] knee pain , injected 03/04/16 with steroid and lidocaine without much relief- patella stabilizer brace given 04/05 From 10-19-2017 visit: seems to have plateaued, wearing brace as needed 31Last PE 08/02, 02/07/14, 02/14/15, 10/15/17, 12/01/18, 07/05/20 , 11/13/21- Last PSA 08/02 0.7, N/A- CRC see polyps- Lung ca , n/a- US aorta n/a- Hep C ab neg 09/06- From 11-13-2021 visit: He has no adv directives on records and is Full code. Prostate ca screening is not performed per recent guidelines- US aorta and Lung cancer screening not needed , non smoker- UTD on vaccines and will get shingrix next year- he has appt soon at travel clinic to get vaccines prior to trip to [place]- i recommended also looking into Malaria prophylaxis with the clinic depending on region and avoid any live attenuated vaccine since he is immunosuppressed - Encourage ongoing exercise and healthy diet. 32colo 04/03 show 1 tubular adenoma and bx negative for colitis,- nl colo 2019, rpt 10 y by gi From 07-08-2020 visit: last colo 2019 nl ,rpt in 10 y per gi 33asthma :has allergies environmental and for food 03-18-2017 visit: Pt report intermittent dyspnea and wheezing and strong family hx of asthma = exam nl = CXR 04/06 ; no acute cardiopulm findings- PFT1: low ERV possibly due to restriction/obesity, no obstruction or change with BD , mildly reduced DLCO which is nl when corrected to alveolar volume , ? effort related vs early interstitial lung disease or pulm htn- CTA CHEST neg for PE and no interstitial lung disease 05/10/17- Echo 05/06 mild concentric hypertrophy EF 63% otherwise nl - BNP and D-dimer low 05/06 ABIOLA ,CARMELA , RA, negative, ESR 6 but CRP hi 7.3 in 05/06 Pulm consult 01/2018 : cough variant asthma/ RAD , and cough induced syncope- he is started on mometasone which seems to help PFT 12/24/22: Normal spirometry. No diffusion impairment. There is flattening of the inspiratory limb of the flow-volume loop, which is seen with variable extrathoracic airway obstruction, but can also reflect difficulty performing the test maneuver- THIS IS DONE while on meds From 12-24-2022 visit: pt with known reactive airway disease, takes flovent 2 bid and albuterol -he reports that extreme weather bother him quite a bit. He had a recent PFT 11/2022 at [facility] while he is on medications showing Normal spirometry. No diffusion impairment. There is flattening of the inspiratory limb of theflow-volume loop, which is seen with variable extrathoracic airway obstruction, but can also reflect difficulty performing the test maneuver-this was ordered by rheumatology. He has not been back to pulmonary. On his own called ENT and scheduled an appointment for allergy testing. He was found to have allergies for environmental and food items and was receiving allergy shots in the past but this got interrupted. He would like to resume that if possible. He also was seen by pulmonary in 2018 anddiagnosed with reactive airway disease-consider repeat imaging, he thinks it will be ordered by rheumatology. Will await till next visit 34MRI 10/16/15 rt shoulder show RC tendinosis and bursitis , biceps tendinosis and synovitis , adhesive tendinitis and findings suggestive of nondisplaced SLAP From 09-02-2016 visit: he is post op and doing well on HEP and NSAIDS : On exam he is tender over shoulder and shoulder girdle and limited ROM, wonder if had tear in RC , no clear single injury =- get shoulder MRI, give steroid, oxycodone and refer to ortho- XR 10/03 AC separation and mild DJD of GHJ- MRI 10/16/15 rt shoulder show RC tendinosis and bursitis , biceps tendinosis and synovitis , adhesive tendinitis and 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 and it has not had any impact on his health 37From 11-12-2022 visit: hx of LBP and spinal + NF stenosis on MRI- has hx of radicular syx suggestive of pseudoclaudication- no neuro deficit-he was evaluated by ortho and spine surgeon and is not a candidate for spine surgery - his hip surgery helped at first but now left hip hurting a bit and he blames it on his weight At present he is doing PT and it is helpful somewhat and will continue that and staying active 38US 08/2016 mild hepatic steatosis , ALT 83 otherwise nl LFT.- neg hep A,B,C 08/2016 with positive hepB s AB From 11-13-2021 visit: mildly abn LFT in past , resolved , urge to continue to work on wt loss and diet- not using alcoholat all visit: Recent syncope while coughing/laughing , triggered syncope - was in his usual state before that , it lasted few minutes i am setting him up w/ziopatch to r/o arythmia - also will refer for EEG at his neurologist to r/o seizure- Holter 11/05: no arrythmia , NSR and no syx reported- Pt reports no recurrent syx- hold off further testing- EEG 11/05 no seizures- US carotids 07/09: left carotid artery is normal, the right one appears normal but it was only partially visualized due to high position in the neck MRI BRAIN 07/09: Stable patchy periventricular white matter changes. No newprocess identified. Ziopatch 12 days in 06/2020: Baseline rythm is NSR and no blocks or afib- Few si nus tachycardia runs lasting at most 16 sec at an average of 138 but the fastest was 4 beats at 176bpm - no entry - these were asymptomatic- From 07-26-2020 visit: Patient had a syncopal episode in 2017, occurred while laughing and coughing and extensive work-up at the time which was negative. Recurrent syncope in last month as he got up from bed and then fell after voiding -- work up again included ziopatch , MRI and neck US and echo and all negative- - It was felt to be vasovagal or drug induced - he was taken off lyrica 75 mg - no recurrent events since elevated A1C 6.6% as part of neuropathy work up- not known diabetic and prior BS nl - also has hx of thalassemia trait and microcytosis- r/o true diabetes vs false positive- 06/18/17 A1C 6%, FBS 101, 2 hr glucose tolerance test nl at 103, NL fructosamine- 08/2019 NL URINE ACR- NL URINE ACR 07/09 - nl urine acr 11/09 From 04-08-2023 visit: last a1c 6.5 AND 6..6% december DESPITE METFORMIN AND OZEMPIC 41per ophtalmologist 09/07: he had bilateral uveitis, non-granulomatous, severe and work up is conducted- nl cxr 08/2017, nl ESR, Cbc 09/07- neg HLAB27 , NL ESR, CRP, CBC, LYME, LEAD, RF, TB SYPHYLIS, ACEI , FOLATE, ferritin , and TSH in 10/05 From 11-13-2021 visit: patient with Anterior Uveitis jose, 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 He did start fish oil 1/d and think it helps a little, continue Procedures Procedure Date Related Diagnosis Body Site Status Appendectomy Completed Arthroplasty 1 Completed 1Left SABRINA Results Laboratory List Name Date BNP 01/02/24 CBC w/ Diff 01/02/24 Comprehensive Metabolic Panel (CMP) 01/01 Creatine Kinase (CK) 01/02/24 D-Dimer 01/02/24 ESR (Erythrocyte Sedimentation Rate) 12/19 11/11 Free T4 01/02/24 Hemoglobin A1c with Estimated Avg Glucos e (A1c) 01/02/24 Magnesium Level 01/02/24 Phosphorus Level 01/02/24 Thyroid Stimulating Hormone (TSH) 4 Vitamin D 25 Hydroxy Level 01/02/24 Automated Diff 01/02/24 Most recent to oldest [Reference Range]: 1 WBC [4.80-10.80 x10^3/mcL] 9.08 x10^3/mc L (01/02/24 9:53 AM) RBC [4.20-5.90 x10^6/mcL] 6.01 x10^6/mcL *HI* (01/02/24 9:53 AM) Neutro Auto [40.0-74.0 /100(WBCs)] 53.9 /100(WBCs) (01/02/24 9:53 AM) Lymph Auto [19.0-48.0 /100(WBCs)] 36.9 / 100(WBCs) (01/02/24 9:53 AM) [place] Auto [3.0-10.0 /100(WBCs)] 6.7 /100 (WBCs) (01/02/24 9:53 AM) Basophil Auto [0.00-2.00 /100(WBCs)] 0.3 0 /100(WBCs) (01/02/24 9:53 AM) BUN [7-18 mg/dL] 12 mg/dL (01/02/24 9:53 AM) Glucose Level [70-100 mg/dL] 120 mg/dL *HI* (01/02/24:53 AM) Potassium Level [3.5-5.1 mEq/L] 4.4 mEq/ L (01/02/24 9:53 AM) Baso Absolute [0.00-0.20 x10^3/mcL] 0.03 x10^3/mcL (01/02/24 9:53 AM) MCV [80.0-97.0 fL] 74.0 fL *LOW* (01/02/24:53 AM) T4 Free [0.76-1.46 ng/dL] 1.10 ng/dL (01/02/24 9:53 AM) AST [15-37 unit/L] 16 unit/L (01/02/24:53 AM) ALT [16-63 unit/L] 60 unit/L (01/02/24:53 AM) MCHC [33.0-36.0 g/dL] 33.0 g/dL (01/02/24:53 AM) Sodium Level [136-145 mEq/L] 141 mEq/L (01/02/24:53 AM) Lymph Absolute [1.20-3.40 x10^3/mcL] 3.3 5 x10^3/mcL (01/02/24 9:53 AM) Hct [40.0-50.0 %] 44.5 % (01/02/24:53 AM) Vitamin D 25 OH [>=30 ng/mL] 45 ng/mL (01/02/24 9:53 AM) Calcium Level [8.5-10.1 mg/dL] 8.7 mg/dL (01/02/24 9:53 AM) [place] Absolute [0.11-0.70 x10^3/mcL] 0.61 x10^3/mcL (01/02/24 9:53 AM) Phosphorus Level [2.3-4.7 mg/dL] 3.2 mg/ dL (01/02/24 9:53 AM) Albumin Level [3.4-5.0 g/dL] 3.8 g/dL (01/02/24 9:53 AM) Protein Total [6.4-8.2 g/dL] 7.2 g/dL (01/02/24 9:53 AM) MCH [27.5-32.1 pg] 24.5 pg *LOW* (01/02/24:53 AM) Magnesium Level [1.8-2.4 mg/dL] 2.2 mg/d L (01/02/24 9:53 AM) Neutro Absolute [1.20-6.70 x10^3/mcL] 4. 89 x10^3/mcL (01/02/24 9:53 AM) Bilirubin Total [0.2-1.2 mg/dL] 0.5 mg/d L (01/02/24 9:53 AM) Hgb [13.5-17.5 g/dL] 14.7 g/dL (01/02/24 9:53 AM) Alk Phos [45-115 unit/L] 108 unit/L (01/02/24 9:53 AM) MPV [6.0-10.0 fL] 8.6 fL (01/02/24 9:53 AM) Platelets [150-400 x10^3/mcL] 297 x10^3/ mcL (01/02/24 9:53 AM) CO2 [21-31 mEq/L] 28 mEq/L (01/02/24 9:53 AM) Eos Absolute [0.00-0.70 x10^3/mcL] 0.16 x10^3/mcL (01/02/24 9:53 AM) TSH [0.340-3.740 munit/mL] 1.071 munit/m L (01/02/24 9:53 AM) eGFR Non-AA [>=60 mL/min/1.73 m2] 63 mL/ min/1.73 m2 (01/02/24 9:53 AM) eGFR AA [>=60 mL/min/1.73 m2] 76 mL/min/ 1.73 m2 (01/02/24 9:53 AM) BNP [0-100 pg/mL] <5 pg/mL 1 (01/02/24:53 AM) eAvg Glucose [<=140 mg/dL] 163 mg/dL *HI* (01/02/24 9:53 AM) Hemoglobin A1c [<=5.6 %] 7.3 % 2 *HI* (01/02/24:53 AM) Chloride Level [98-107 mEq/L] 103 mEq/L (01/02/24 9:53 AM) A/G Ratio 1.1 *NA* (01/02/24:53 AM) BUN/Creat Ratio 10 ratio *NA* (01/02/24:53 AM) Globulin 3.40 mg/dL *NA* (01/02/24 9:53 AM) Imm Gran Absolute [0.00-0.04 x10^3/mcL] 0.04 x10^3/mcL (01/02/24 9:53 AM) Imm Gran Auto 0.4 /100(WBCs) *NA* (01/02/24:53 AM) Creatinine Level [0.70-1.30 mg/dL] 1.20 mg/dL (01/02/24 9:53 AM) ESR [0-15 mm/hr] 14 mm/hr (01/02/24 9:53 AM) RDW-CV [11.6-14.8 %] 13.4 % (01/02/24:53 AM) Anion Gap [5-15 mEq/L] 14 mEq/L (01/02/24 9:53 AM) D Dimer, (Quant.) [<=400 ng/mL] 138 ng/m L 3 (01/02/24 9:53 AM) Eos, Auto [1.0-7.0 /100(WBCs)] 1.8 /100( WBCs) (01/02/24 9:53 AM) CK [39-308 unit/L] 143 unit/L (01/02/24 9:53 AM) 1Interpretive Data: <100 pg/ml: normal values in patients without CHF >100: abnormal and suggestive of patients with CHF 2Interpretive Data: Nondiabetic: <5.7% Prediabetic: 5.7% to 6.4% Diabetic: >6.4% 3Interpretive Data: Elevated concentrations of D-dimer are indicative of the presence of a clot and have been reported in cases of DVT, PE, DIC and many other clinical conditions. The clinical utilityof this test is its high negative predictive value for ruling out these conditions when results fall below the normal reference range value. This method has NOT been FDA cleared to report a cut-off value for the exclusion of DVT and PE. The reference range provided is based on the 90th percentile of 208 apparently healthy individuals and should be used in conjunction with other clinical information. Social History Social History Type Response Tobacco Never tobacco user T obacco Use:. Sex Male Patient Care team information Care Team Personnel Name: Arely Love Position: Ambulatory - Human Resources Hr Generalist Member Role: Human Resources Hr Generalist Name: Elo Gutierrez Position: Registration - Calender Let Off Helper Member Role: Human Resources Hr Generalist Name: Cecy Rasmussen MD Position: Physician Member Role: Primary Care Physician Address: Address: [address] [place] [id number] Name: Zaida Tucker Position: Ambulatory - Human Resources Hr Generalist Member Role: Human Resources Hr Generalist Care Team Related Persons Name: MIGUEL LYONS Address: [address] [phone]
--- OUTSIDE RECORDS SUMMARY | 2024-01-09 19:13 | XMS_ITS | Continuity of Care Document ---
Author Name Unknown Organization [facility] Ambulatory Clinics Address [address] [place] [address] Care Team Providers Care Photographic Processor Name Role Phone MARBIN BENAVIDES Primary Care Physician Encounter [facility] NBR [id number] Date(s): 04/22/23 - 04/22/23 [facility] Ambulatory Clinics [address] [place] [address]- [place] Encounter Diagnosis Allergic rhinitis(Discharge Diagnosis) - 04/22/23 Discharge Disposition: Home or Self Care Allergies, Adverse Reactions, Alerts Substance Reaction Severity Status Tree Nuts Unknown Active Grass Unknown Active Apple fruit Unknown Unknown Active Dust mite Unknown Active Medications !-Augmentin 875 mg-125 mg oral tablet 1 tab, Oral, every 12 hr, # 20 tab, 0 Refill(s), [facility]acy: [facility] #[id number] Start Date: 01/01/23 Stop Date: 01/11/23 Status: Ordered Accolate 10 mg oral tablet 10 mg = 1 tab, Oral, BID, # 60 tab, 2 Refill(s), Pharmacy: [facility] #[id number] Start Date: 01/01/23 Status: Ordered EPINEPHrine 0.3 mg injectable kit 0.3 mg =, IM, Once, # 1 EA, 0 Refill(s) Start Date: 12/31/22 Status: Ordered fexofenadine 180 mg oral tablet 180 mg = 1 tab, Oral, Daily, # 90 tab, 3 Refill(s), Pharmacy: [facility] #[id number] Start Date: 01/01/23 Stop Date: 12/27/23 Status: [...] BID, # 17 g, 0 Refill(s), Pharmacy: [facility] #[id number] Start Date: 01/01/23 Status: Ordered NexIUM 40 [...] Member Role: Primary Care Physician Address: Address: [place], [place] [address] Care Team Related Persons Name: MIGUEL OLMEDO Address: [place] [address]
--- OUTSIDE RECORDS SUMMARY | 2024-01-09 19:13 | XMS_ITS | Continuity of Care Document ---
Author Name Unknown Organization [facility] Ambulatory Clinics Address [address] [place] [address] Care Team Providers Care Auto Leasing Manager Name Role Phone MARBIN BENAVIDES Primary Care Physician [phone] Encounter [facility] FIN NBR [id number] Date(s): 02/25/23 - 02/25/23 [facility] Ambulatory Clinics [address] [place], [place] [address] Encounter Diagnosis Allergic rhinitis(Discharge Diagnosis) - 02/25/23 Discharge Disposition: Home or Self Care Allergies, Adverse Reactions, Alerts Substance Reaction Severity Status Tree Nuts Unknown Active Grass Unknown Active Apple fruit Unknown Unknown Active Dust mite Unknown Active Medications !-Augmentin 875 mg-125 mg oral tablet 1 tab, Oral, every 12 hr, # 20 tab, 0 Refill(s), Pharmacy: [facility] #[id number] Start Date: 01/01/23 Stop Date: 01/11/23 Status: Ordered Accolate 10 mg oral tablet 10 mg = 1 tab, Oral, BID, # 60 tab, 2 Refill(s), Pharmacy: [facility] #[id number] Start Date: 01/01/23 Status: Ordered EPINEPHrine 0.3 mg injectable kit 0.3 mg =, IM, Once, # 1 EA, 0 Refill(s) Start Date: 12/31/22 Status: Ordered fexofenadine 180 mg oral tablet 180 mg = 1 tab, Oral, Daily, # 90 tab, 3 Refill(s), Pharmacy: [facility] #[id number] Start Date: 01/01/23 Stop Date: 12/27/23 Status: [...] BID, # 17 g, 0 Refill(s), Pharmacy: [facility] #[id number] Start Date: 01/01/23 Status: Ordered NexIUM 40 [...] Member Role: Primary Care Physician Address: Address: [address]
--- OUTSIDE RECORDS SUMMARY | 2024-01-09 19:13 | XMS_ITS | Continuity of Care Document ---
Author Name Unknown Organization [facility] Ambulatory Clinics Address [address] [place] [address] Care Team Providers Care Ceiling Installer Name Role Phone MARBIN BENAVIDES Primary Care Physician Encounter [facility] NBR [id number] Date(s): 01/02/23 - 01/02/23 [facility] Ambulatory Clinics [address] [place], [place] [address] Encounter Diagnosis Environmental allergies(Discharge Diagnosis) - 01/02/23 Discharge Disposition: Home or Self Care Allergies, Adverse Reactions, Alerts Substance Reaction Severity Status Tree Nuts Unknown Active Grass Unknown Active Apple fruit Unknown Unknown Active Dust mite Unknown Active Assessment and Plan Extracted from: Title:allergy serum mix Author:Archana Starks Date:01/02/23 Assessment Vials mixed per allergy order for allergy IT. See scanned doc. for allergy order. . Plan Diagnosis: Environmental allergies ([id number] Z91.09, Discharge, Medical). Orders Ambulatory Procedures: [id number] Preparation and provision of antigens for allergen immunotherapy; single or multiple antigens[ (Order): 01/02/2023 12:07 EDT, 20 units, Environmental allergies, 20 Future Appointments Medications !-Augmentin 875 mg-125 mg oral tablet 1 tab, Oral, every 12 hr, # 20 tab, 0 Refill(s), Pharmacy: [facility] #[id number] Start Date: 01/01/23 Stop Date: 01/11/23 Status: Ordered Accolate 10 mg oral tablet 10 mg = 1 tab, Oral, BID, # 60 tab, 2 Refill(s), Pharmacy: [facility] #[id number] Start Date: 01/01/23 Status: Ordered EPINEPHrine 0.3 mg injectable kit 0.3 mg =, IM, Once, # 1 EA, 0 Refill(s) Start Date: 12/31/22 Status: Ordered fexofenadine 180 mg oral tablet 180 mg = 1 tab, Oral, Daily, # 90 tab, 3 Refill(s), Pharmacy: [facility] #[id number] Start Date: 01/01/23 Stop Date: 12/27/23 Status: [...] BID, # 17 g, 0 Refill(s), Pharmacy: [facility] #[id number] Start Date: 01/01/23 Status: Ordered NexIUM 40 [...] Active Physician Outpatient Note * CHRISTINE Vargas: SIGN CHRISTINE Vargas: SIGN, SIGN, VERIFY Event Display: Office Clinic Note Physician Authored Date: [id number] Patient: GERALD OLMEDO Age: 52 years Sex: Male : 1970 Associated Diagnoses: Environmental allergies Author: Clotilde Starks Chief Complaint Allergy Serum mixing for allergy immunotherapy Visit Information 2 5ml Vial(s) mixed per allergy orders for allergy [...] Oral, every week, 4 tab, 0 Refill(s). Allergies Include (Selected) Allergic Reactions (All) Unknown Apple fruit- Unknown. Dust mite- No reactions were documented. Grass- No reactions were documented. Tree Nuts- No reactions were documented.. 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 Assessment Vials mixed per allergy order for allergy IT. See scanned doc. for allergy order. . Plan Diagnosis: Environmental allergies ([id number] Z91.09, Discharge, Medical). Orders Ambulatory Procedures: [id number] Preparation and provision of antigens for allergen immunotherapy; single or multiple antigens[ (Order): 01/02/2023 12:07 EDT, 20 units, Environmental allergies, 20 Electronically Signed on 01/02/23 12:08 PM Clotilde Starks Electronically Signed on 01/02/23 01:18 PM CHRISTINE Vargas Outpatient Summary note * Clotilde Starks: PERFORM Event Display: Ambulatory Patient Summary Authored Date: Patient Care team information Care Team Personnel Name: MARBIN BENAVIDES Position: No Access Member Role: Primary Care Physician Address: Address: [place] [id number]
--- OUTSIDE RECORDS SUMMARY | 2024-01-09 19:13 | XMS_ITS | Continuity of Care Document ---
Author Name Unknown Organization [facility] Ambulatory Clinics Address [address] [place] [address] Care Team Providers Care Billboard Poster Name Role Phone MARBIN BENAVIDES Primary Care Physician [phone] Encounter [facility] NBR [id number] Date(s): 08/12/23 - 08/12/23 [facility] Ambulatory Clinics [address] [place] [address]- Encounter Diagnosis Allergic rhinitis(Discharge Diagnosis) - 08/12/23 Allergic rhinitis, unspecified(Final) - Discharge Disposition: Home or Self Care Allergies, Adverse Reactions, Alerts Substance Reaction Severity Status Tree Nuts Unknown Active Grass Unknown Active Apple fruit Unknown Unknown Active Dust mite Unknown Active Assessment and Plan Future Appointments Medications !-Augmentin 875 mg-125 mg oral tablet 1 tab, Oral, every 12 hr, # 20 tab, 0 Refill(s), Pharmacy: [facility] #[id number] Start Date: 01/01/23 Stop Date: 01/11/23 Status: Ordered Accolate 10 mg oral tablet 10 mg = 1 tab, Oral, BID, # 60 tab, 2 Refill(s), Pharmacy: [facility] #[id number] Start Date: 01/01/23 Status: Ordered EPINEPHrine 0.3 mg injectable kit 0.3 mg =, IM, Once, # 1 EA, 0 Refill(s) Start Date: 12/31/22 Status: Ordered fexofenadine 180 mg oral tablet 180 mg = 1 tab, Oral, Daily, # 90 tab, 3 Refill(s), Pharmacy: [facility] #[id number] Start Date: 01/01/23 Stop Date: 12/27/23 Status: [...] BID, # 17 g, 0 Refill(s), Pharmacy: [facility] #[id number] Start Date: 01/01/23 Status: Ordered NexIUM 40 [...] Member Role: Primary Care Physician Address: Address: [place] [address]- Care Team Related Persons Name: MIGUEL OLMEDO Address: [place] [address]
--- OUTSIDE RECORDS SUMMARY | 2024-01-09 19:13 | XMS_ITS | Continuity of Care Document ---
Author Name Unknown Organization [facility] Ambulatory Clinics Address [address] [place] [address] Care Team Providers Care Thermodynamics Engineer Name Role Phone MARBIN BENAVIDES Primary Care Physician Encounter [facility] NBR [id number] Date(s): 04/29/23 - 04/29/23 [facility] Ambulatory Clinics [address] [place], [place] [address] Encounter Diagnosis Acute allergic rhinitis(Discharge Diagnosis) - 04/29/23 Discharge Disposition: Home or Self Care Allergies, Adverse Reactions, Alerts Substance Reaction Severity Status Tree Nuts Unknown Active Grass Unknown Active Apple fruit Unknown Unknown Active Dust mite Unknown Active Medications !-Augmentin 875 mg-125 mg oral tablet 1 tab, Oral, every 12 hr, # 20 tab, 0 Refill(s), Pharmacy: [facility] #[id number] Start Date: 01/01/23 Stop Date: 01/11/23 Status: Ordered Accolate 10 mg oral tablet 10 mg = 1 tab, Oral, BID, # 60 tab, 2 Refill(s), Pharmacy: [facility] #[id number] Start Date: 01/01/23 Status: Ordered EPINEPHrine 0.3 mg injectable kit 0.3 mg =, IM, Once, # 1 EA, 0 Refill(s) Start Date: 12/31/22 Status: Ordered fexofenadine 180 mg oral tablet 180 mg = 1 tab, Oral, Daily, # 90 tab, 3 Refill(s), Pharmacy: [facility] #[id number] Start Date: 01/01/23 Stop Date: 12/27/23 Status: [...] BID, # 17 g, 0 Refill(s), Pharmacy: [facility] #[id number] Start Date: 01/01/23 Status: Ordered NexIUM 40 [...] Member Role: Primary Care Physician Address: Address: [place], [place] [address] Care Team Related Persons Name: MIGUEL OLMEDO Address: [place] [address]
--- OUTSIDE RECORDS SUMMARY | 2024-01-09 19:13 | XMS_ITS | Continuity of Care Document ---
Author Name Unknown Organization [facility] Ambulatory Clinics Address [address] [place] [address] Care Team Providers Care Maintenance Director Name Role Phone MARBIN BENAVIDES Primary Care Physician [phone] Encounter [facility] NBR [id number] Date(s): 04/08/23 - 04/08/23 [facility] Ambulatory Clinics [address] [place] [address] us Encounter Diagnosis Environmental allergies(Discharge Diagnosis) - 04/08/23 Discharge Disposition: Home or Self Care Allergies, Adverse Reactions, Alerts Substance Reaction Severity Status Tree Nuts Unknown Active Grass Unknown Active Apple fruit Unknown Unknown Active Dust mite Unknown Active Assessment and Plan Extracted from: Title:allergy serum mix Author:CHRISTINE Vargas Date:04/08/23 Assessment Vials mixed per allergy order for allergy IT. See scanned doc. for allergy order. . Plan Diagnosis: Environmental allergies ([id number]-[id number] Z91.09, Discharge, Medical). Orders Ambulatory Procedures: 13486 Preparation and provision of antigens for allergen immunotherapy; single or multiple antigens[ (Order): 04/08/2023 13:30 EDT, Environmental allergies, 20 Medications !-Augmentin 875 mg-125 mg oral tablet 1 tab, Oral, every 12 hr, # 20 tab, 0 Refill(s), Pharmacy: [facility] #[id number] Start Date: 01/01/23 Stop Date: 01/11/23 Status: Ordered Accolate 10 mg oral tablet 10 mg = 1 tab, Oral, BID, # 60 tab, 2 Refill(s), Pharmacy: [facility] #[id number] Start Date: 01/01/23 Status: Ordered EPINEPHrine 0.3 mg injectable kit 0.3 mg =, IM, Once, # 1 EA, 0 Refill(s) Start Date: 12/31/22 Status: Ordered fexofenadine 180 mg oral tablet 180 mg = 1 tab, Oral, Daily, # 90 tab, 3 Refill(s), [id number] Start Date: 01/01/23 Stop Date: 12/27/23 Status: [...] BID, # 17 g, 0 Refill(s), [facility]acy: [facility][id number] Start Date: 01/01/23 Status: Ordered NexIUM 40 [...] Display: Office Clinic Note Physician Authored Date: [id number] Patient: GERALD OLMEDO Age: 52 years Sex: [...] Include (Selected) All Problems Allergic rhinitis / 784110145 / Confirmed Arthritis / 3501380 / Confirmed 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 Assessment Vials mixed per allergy order for allergy IT. See scanned doc. for allergy order. . Plan Diagnosis: Environmental allergies ([id number] Z91.09, Discharge, Medical). Orders Ambulatory Procedures: 81060 Preparation and provision of antigens for allergen immunotherapy; single or multiple antigens[ (Order): 04/08/2023 13:30 EDT, Environmental allergies, 20 Electronically Signed on 04/08/23 01:30 PM CHRISTINE Vargas Patient Care team information Care Team Personnel Name: MARBIN BENAVIDES Position: No Access Member Role: Primary Care Physician Address: Address: [place] [address]- Care Team Related Persons Name: MIUGEL OLMEDO Address: [place] [address]
--- OUTSIDE RECORDS SUMMARY | 2024-01-09 19:13 | XMS_ITS | Continuity of Care Document ---
Author Name Unknown Organization [facility] Ambulatory Clinics Address [address] [place] [address] Care Team Providers Care Organizational Development Specialist Name Role Phone MARBIN BENAVIDES Primary Care Physician [phone] Encounter [facility] NBR [id number] Date(s): 02/11/23 - 02/11/23 [facility] Ambulatory Clinics [address] [place] [address]- Encounter Diagnosis Allergic rhinitis(Discharge Diagnosis) - 02/11/23 Discharge Disposition: Home or Self Care Allergies, Adverse Reactions, Alerts Substance Reaction Severity Status Tree Nuts Unknown Active Grass Unknown Active Apple fruit Unknown Unknown Active Dust mite Unknown Active Assessment and Plan Future Appointments Medications !-Augmentin 875 mg-125 mg oral tablet 1 tab, Oral, every 12 hr, # 20 tab, 0 Refill(s), Pharmacy: [facility] #[id number] Start Date: 01/01/23 Stop Date: 01/11/23 Status: Ordered Accolate 10 mg oral tablet 10 mg = 1 tab, Oral, BID, # 60 tab, 2 Refill(s), Pharmacy: [facility] #[id number] Start Date: 01/01/23 Status: Ordered EPINEPHrine 0.3 mg injectable kit 0.3 mg =, IM, Once, # 1 EA, 0 Refill(s) Start Date: 12/31/22 Status: Ordered fexofenadine 180 mg oral tablet 180 mg = 1 tab, Oral, Daily, # 90 tab, 3 Refill(s), Pharmacy: [facility] #[id number] Start Date: 01/01/23 Stop Date: 12/27/23 Status: [...] BID, # 17 g, 0 Refill(s), Pharmacy: [facility] #[id number] Start Date: 01/01/23 Status: Ordered NexIUM 40 [...] team information Care Team Personnel Name: MARBIN BNEAVIDES Position: No Access Member Role: Primary Care Physician Address: Address: [address]
== END 2024-01-08 19:09 | disposition home or self-care (01) ==
LOC: LBN 19:08
PROVIDERS: PCP Internal Medicine; Visit Provider Physician Assistant Medical
DX: R19.5 Other fecal abnormalities (principal)
CPT/HCPCS: 85025

== ENCOUNTER 2024-01-10 03:20 | Emergency (ER) | payer BC, SELFPAY ==
[2024-01-10] VITALS (27 sets, daily range): BP systolic 128–183; BP diastolic 80–133; PULSE 73–98; RESP 5–30; TEMP 36.7; O2SAT 90–100
--- NOTE | 2024-01-10 03:30 | RT.EKG_ITS ---
APPROVED REPORT Exam: Resting ECG Reason for Exam: SOB Patient Location: E HR:76 bpm ECG Measurements Heart Rate 76 AXIS MI 165 P 52 QRSd 90 QRS 3 QT 391 T 12 QTc 442 Conclusion Sinus rhythm...normal P axis, V-rate 60- [address] segment or T wave abnormalities to suggest occlusive AK
--- NOTE | 2024-01-10 03:45 | DI.RAD_ITS ---
Exam(s) XR PORTABLE CHEST AP EXAM: XR PORTABLE CHEST AP CLINICAL HISTORY: COVID +, SOB TECHNIQUE: 2D digital imaging was performed. COMPARISON: CT CT CHEST PE CTA from 03/21/2022 FINDINGS: The exam is extremely limited by under penetration. The left middle and lung castro are obscured by the cardiac silhouette. Visualized LUNGS: Visualized portions of the lungs are clear. No pleural abnormality seen. Small left-sided ef fusion not excluded. HEART: Normal size. AORTA: Normal diameter. BONES: Spine obscured. Soft tissues: Unremarkable. IMPRESSION: Severely limited exam. Left lower lung field obscured. No acute findings elsewhere. DATA REPOSITORY: RADIATION DOSE DELIVERED:
[2024-01-10] MEDS: Albuterol/Ipratropium 3 ML UPD VIAL (03:52)
[2024-01-10 04:26] LABS: BE (Venous) 2 mmol/L (-2-3); HCO3 (Venous) 28 mmol/L (23-28); O2 Sat (Venous) 57 %; TCO2 (Venous) 25 mmol/L (24-29); pCO2 (Venous) 50 mmHg (41-51); pH (Venous) 7.35 (7.31-7.41); pO2 (Venous) 32 mmHg
[2024-01-10 04:28] LABS: Abs Immature Grans 0.03 10^3/uL (0.0-0.06); Absolute Basophil Count 0.03 10^3/uL (0.0-0.2); Absolute Eosinophil Count 0.15 10^3/uL (0.0-0.7); Absolute Lymphocyte Count 3.98 10^3/uL (1.2-3.4); Absolute Monocyte Count 0.53 10^3/uL (0.1-0.8); Absolute Neutrophil Count 3.36 10^3/uL (1.2-6.7); Basophils % 0.4 %; Eosinophils % 1.9 %; HCT 43.9 % (40.0-50.0); HGB 14.3 g/dL (13.5-17.5); Immature Grans % 0.4 %; Lymphocytes % 49.3 %; MCHC 32.6 % (32.0-36.0); MCV 77 fL (80-95); MPV 8.7 fL (8.0-11.0); Monocytes % 6.6 %; Neutrophils % 41.4 %; Platelet Count 228 10^3/uL (130-400); RBC 5.73 10^6/uL (4.36-5.78); RDW 13.6 % (11.8-14.1); RDW-SD 37.4 fL; WBC 8.08 10^3/uL (4.4-10.8)
--- NOTE | 2024-01-10 04:45 | DI.CT_ITS ---
Exam(s) CT CHEST PE CTA EXAM: CT CHEST PE CTA CLINICAL HISTORY: SOB, pleuritic pain, COVID +. TECHNIQUE: Imaging Protocol: Axial CT angiography was performed with multi-slice acquisition and mu lti-planar reconstructions as well as axial, coronal and sagittal MIP reconstructions. CONTRAST MATERIAL: Intravenous: Omnipaque 350 Contrast volume:100 ml COMPARISON: CT CT CHEST PE CTA from 03/21/2022 FINDINGS: Pulmonary Arteries: Pulmonary artery suboptimally opacified. Peak contrast noted within aorta. No e vidence of filling defect to suggest pulmonary emboli. Tracheobronchial tree: No mucous plugging. Mediastinum and Ofelia: No dominant adenopathy or fluid collection. Tiny hiatal hernia. Pulmonary parenchyma: No consolidation or dominant measurable mass. Pleura: No effusion or pneumothorax. Heart: The heart is not dilated. Mild coronary artery calcifications are seen. Aorta: Thoracic aorta non-dilated. No dissection. Upper abdomen: No acute findings. Liver enlarged. Hepatic steatosis. Bones: Unremarkable for age. Tubes, Catheters, and Lines: None Soft tissues: Mild bilateral gynecomastia. IMPRESSION: No acute abnormality. No evidence of central pulmonary embolism. Small branches not well evaluated. Poor contrast bolus. RADIATION DOSE DELIVERED: Total DLP DATA REPOSITORY: All CT scans at this facility are submitted to the National Radiology Data Registry (NRDR) Dose Index Registry (DIR) with the [employer] (ACR). RADIATION OPTIMIZATION: All CT scans at this facility use at least one of these dose optimization te chniques: automated exposure control; mA and/or kV adjustment per patient size (includes targeted exa ms where dose is matched to clinical indication); or iterative reconstruction.
[2024-01-10 04:50] LABS: ALT 53 U/L (16-63); AST 19 U/L (15-37); Albumin 3.8 g/dL (3.4-5.0); Alkaline Phosphatase 93 U/L (46-116); Anion Gap 9.6 mmol/L (3-11); BUN 13 mg/dL (7-18); Bilirubin, Total 0.39 mg/dL (0.2-1.0); CO2 28.4 mmol/L (21.0-32.0); Calcium 8.9 mg/dL (8.5-10.1); Chloride 104 mmol/L (98-107); Estimated GFR 88.88 (mL/min/1.73m2); Glucose 133 mg/dL (74-106); Potassium 3.5 mmol/L (3.5-5.1); Sodium 142 mmol/L (136-145); Total Protein 7.7 g/dL (6.4-8.2)
--- NOTE | 2024-01-10 04:52 | W.ED.GENAD ---
Discharge Plan Disposition Patient Disposition: Home Condition: Good Discharge Details Clinical Impression: COVID-19, Asthma Primary Care Provider: Cecy Rasmussen ED Provider: Zelda Cedeño Home Meds and New Rx's Prescriptions: New cyclobenzaprine 10 mg tablet 10 mg PO TID PRNQty: 10 0RF Continued acetaminophen 325 MG tablet 650 mg PO PRN Systane (PF) 1 EACH dropperette 1 ea Ophthalmic DAILY doxycycline hyclate 100 mg capsule 100 mg PO BID Patient Comments: prescribed for possible sinus infection 01/08/24 esomeprazole magnesium 40 MG capsule,delayed release(DR/EC) 40 mg PO DAILY epinephrine 0.3 MG/SYR auto-injector 1 ea IM PRN PRN ibuprofen 600 MG tablet 600 mg PO Q6H PRN (Reason: Pain) Qty: 20 0RF albuterol sulfate [ProAir HFA] 200 PUFF HFA aerosol inhaler 2 puff inhalation PRN PRN fluticasone propionate [Flovent Diskus] 250 MCG blister with device 1 inh inhalation BID amlodipine 5 mg tablet 5 mg PO DAILY irbesartan-hydrochlorothiazide 300-12.5 mg tablet 1 tab PO DAILY metoprolol succinate 25 mg tablet extended release 24 hr 50 mg PO DAILY Patient Comments: take 1 AND 1/2 tablets by mouth once daily colchicine 0.6 mg tablet 0.6 mg PO DAILY Patient Comments: take 1 tablet by mouth once daily montelukast 10 mg tablet 1 tab PO DAILY Patient Comments: take 1 tablet by mouth once daily infliximab [Remicade] 100 mg Recon Soln 500 mg IV DIRECTED Rx Instructions: unsure of dose Combivent Respimat 20-100 mcg/actuation mist 1 puff inhalation Q6H Qty: 4 0RF No Action Paxlovid 300 mg (150 mg x 2)-100 mg tablets,dose pack PO Discharge Instructions Instructions: Asthma, Adult ED, COVID-19 ED Additional Instructions: Take the second dose of decadron (8mg) tomorrow morning. Continue to use your home inhalers. You can take cyclobenzaprine up to every 8 hours for muscle pain; follow the directions on the bottle. Call your primary care doctor today to schedule an appointment to be seen as soon as possible, ideally Friday, to follow up on your visit here. Return to the emergency department for new or worsening symptoms including if your breathing gets bad again, you develop new/different/worse pain, feel like you are going to pass out, or if you have any other concerns. IT IS VERY IMPORTANT THAT YOU RETURN TO THE EMERGENCY DEPARTMENT IF YOUR BREATHING WORSENS. Referrals: Cecy Rasmussen [Primary Care Provider] - [facility] General Mode of arrival: ambulatory. Date/Time Provider Initiated Documentation: 01/10/24 03:24. Limitations to Documentation: no limitations. Information obtained by: patient. HPI Narrative: 53yo M with asthma, Bechet's syndrome, COVID +, presenting with shortness of breath. Symptoms started about 10 days ago, cough, rhinnorha, shortness of breath. Using inhalers at home frequently. Tested positive for COVID yesterday. Went to urgent care on 01/07; treated with nebs and prednisone. Symptoms have persisted and are worsening. For the past day has had pain with deep inspiration, feels like he can't take a full breath because it hurts so much. Pain is in his upper right chest and radiates into his scapula and up his neck. No fevers, chills, rash, nausea, vomiting, abdominal pain, lightheadedness, or other concerns. Related Data Home Medications Medication Instructions Recorded Confirmed epinephrine 0.3 mg/0.3 mL 1 ea IM PRN PRN 11/28/15 01/10/24 injection, auto-injector esomeprazole magnesium 40 mg 40 mg PO DAILY 11/28/15 01/10/24 capsule,delayed release ibuprofen 600 mg tablet 600 mg PO Q6H PRN Pain #20 tabs 04/05/17 01/10/24 albuterol sulfate 90 mcg/actuation 2 puff inhalation PRN PRN 08/24/17 01/10/24 aerosol inhaler (ProAir HFA) fluticasone propionate 250 1 inh inhalation BID 08/24/17 01/10/24 mcg/actuation blister powder for inhalation (Flovent Diskus) acetaminophen 325 mg tablet 650 mg PO PRN 10/08/17 01/10/24 peg 400-propylene glycol (PF) 0.4 1 ea ophthalmic (eye) DAILY 10/08/17 01/10/24 %-0.3 % eye drops in a dropperette (Systane (PF)) amlodipine 5 mg tablet 5 mg PO DAILY 10/21/20 01/10/24 colchicine 0.6 mg tablet 0.6 mg PO DAILY 10/21/20 01/10/24 irbesartan 300 1 tab PO DAILY 10/21/20 01/10/24 mg-hydrochlorothiazide 12.5 mg tablet metoprolol succinate 25 mg 50 mg PO DAILY 10/21/20 01/10/24 tablet,extended release 24 hr infliximab 100 mg intravenous 500 mg IV DIRECTED 03/21/22 01/10/24 solution (Remicade) ipratropium 20 mcg-albuterol 100 1 puff inhalation Q6H #4 grams 03/21/22 01/10/24 mcg/actuation mist for inhalation (Combivent Respimat) montelukast 10 mg tablet 1 tab PO DAILY 03/21/22 01/10/24 doxycycline hyclate 100 mg capsule 100 mg PO BID 01/09/24 01/10/24 cyclobenzaprine 10 mg tablet 10 mg PO TID PRN #10 tabs 01/10/24 nirmatrelvir 300 mg (150 mg dose pk PO 01/10/24 x2)-ritonavir 100 mg tablet,dose pack (Paxlovid) Previous Rx's Medication Instructions Recorded ibuprofen 600 mg tablet 600 mg PO Q6H PRN Pain #20 tabs 04/05/17 ipratropium 20 mcg-albuterol 100 1 puff inhalation Q6H #4 grams 03/21/22 mcg/actuation mist for inhalation (Combivent Respimat) cyclobenzaprine 10 mg tablet 10 mg PO TID PRN #10 tabs 01/10/24 Allergies Allergy/AdvReac Type Severity Reaction Status Date / Time Kehylfj-MHS-UjO Reductase Allergy Unknown unknown Verified 01/10/24 03:36 Inhibitor apple Allergy Unknown Unverified 01/10/24 03:36 nut - unspecified Allergy unknown Unverified 01/10/24 03:36 General Stated Complaint: SOB EMILY: 3 Review of Systems Narrative: see HPI Exam Narrative Exam Narrative: General: Alert Head: Normocephalic, atraumatic Neck: Trachea midline, ?Neck supple. Cardiac: ?RRR, no murmurs appreciated Resp: Speaking in 5-6 word sentences. Shallow breaths. Lungs CTAB. Abd: ?Soft, non-distended, nontender : ?No suprapubic tenderness Extremities: ?No deformities.? No peripheral edema. Neurologic: GCS 15. ? Moves all extremities freely against gravity Course Vital Signs Vital signs: Vital Signs Pulse 78 01/10/24 03:31 Respiratory Rate 30 H 01/10/24 03:31 Blood Pressure 171/133 H 01/10/24 03:31 Pulse Oximetry 99 01/10/24 03:31 Pulse 76 01/10/24 04:25 Pulse 78 01/10/24 04:30 Respiratory Rate 17 01/10/24 04:30 Respiratory Effort Short of Breath, Incrsd Work of Breathing 01/10/24 04:09 Respiratory Depth Normal 01/10/24 04:09 Respiratory Pattern Tachypnea 01/10/24 04:09 Blood Pressure 178/80 H 01/10/24 04:25 Blood Pressure Mean 108 01/10/24 04:25 Blood Pressure Position Sitting 01/10/24 03:31 Pulse Oximetry 97 01/10/24 04:30 Oxygen Delivery Method Room Air 01/10/24 03:31 Oxygen Flow Rate 0 01/10/24 03:31 Lab/Test Results Lab/Test Results: Laboratory Tests Range/Units 01/10/24 04:20 WBC (4.4-10.8) 10^3/uL 8.08 RBC (4.36-5.78) 10^6/uL 5.73 Hgb (13.5-17.5) g/dL 14.3 Hct (40.0-50.0) % 43.9 MCV (80-95) fL 77 L MCH (27.0-33.0) pg 25.0 L MCHC (32.0-36.0) % 32.6 RDW (11.8-14.1) % 13.6 Plt Count (130-400) 10^3/uL 228 MPV (8.0-11.0) fL 8.7 Immature Gran % % 0.4 Neutrophils % % 41.4 Lymphocytes % % 49.3 Monocytes % % 6.6 Eosinophils % % 1.9 Basophils % % 0.4 Nucleated RBC % (0.0-0.3) % 0.0 Absolute Neutrophils (1.2-6.7) 10^3/uL 3.36 Absolute Lymphocytes (1.2-3.4) 10^3/uL 3.98 H Absolute Monocytes (0.1-0.8) 10^3/uL 0.53 Absolute Eosinophils (0.0-0.7) 10^3/uL 0.15 Absolute Basophils (0.0-0.2) 10^3/uL 0.03 VBG pH (7.31-7.41) 7.35 VBG pCO2 (41-51) mmHg 50 VBG pO2 mmHg 32 VBG HCO3 (23-28) mmol/L 28 VBG Total CO2 (24-29) mmol/L 25 VBG O2 Saturation % 57 VBG Base Excess (-2-3) mmol/L 2 Medical Decision Making 53yo M with asthma, Bechet's syndrome, COVID +, presenting with shortness of breath. 10 days of URI symptoms, COVID + yesterday, today with pleuriitic chest pain. Hypertensive and tachypneic on arrival; per nursing had diminished coarse wheezy breath sounds on arrival. Given 3 stacked duonebs. On my assessment he has good air movement, end expiratory wheeze. Is still speaking in short sentences and appears dyspneic. Feels the nebs helped 'a little', however breathing currently is limited 2/t pleuritic pain. Given COVID and Bechet's, higher risk for blood clots and high suspicion for PE despite normal HR and O2 sat; will get CTA chest. Out of window for paxlovid. Will give additional albuterol and decadron. Urgent care note reviewed; he has been having some dark stool and was hemeoccult positive so they did not prescribe additional prednisone due to concern for GI bleeding; given his presentation here today benefits of additional corticosteroid outweigh risk EKG sinus tachycardia, appropriate intervals, no ST segment or T wave abnormalities to suggest occlusive RI CXR independently reviewed, no focal pneumonia or pneumothorax on my view; is hyperinflated with enlarged cardiac silhouette. Radiology read below. Labs reviewed as below, CBC reassuring with no leukocytosis or anemia, CMP with no actionable abnormalities, VBG reassuring, troponin negative (initial troponin drawn ~90 min after arrival), BNP normal. Repeat troponin drawn three hours after arrival negative. Would not further pursue ACS. CT for PE independently reviewed; no large saddle embolus on my view and no pneumonia or pleural effusion, On reassessment he reports breathing feels much better. Lungs CTAB. No respiratory distress. Right chest wall and right infrascapular area TTP with palpable back spasm. Suspect this is the etiology of his pain. Will treat with flexeril which pt has used in the past. Discharged home; dishcarge instructions and strict return precautions were reviewed with patient who verbalized understanding. All questions were answered and he is in full agreement with the plan. Imaging Data Radiologic Study: Imaging: X-Ray Radiologist's impression: IMPRESSION: Severely limited exam. Left lower lung field obscured. No acute findings elsewhere Radiologic Study #2: Imaging: CT Scan Radiologist's impression: IMPRESSION: No acute findings. Lab Data Lab results reviewed: Yes I reviewed the patient's lab results. Labs: Laboratory Tests Range/Units 01/10/24 01/10/24 04:20 05:00 WBC (4.4-10.8) 10^3/uL 8.08 RBC (4.36-5.78) 10^6/uL 5.73 Hgb (13.5-17.5) g/dL 14.3 Hct (40.0-50.0) % 43.9 MCV (80-95) fL 77 L MCH (27.0-33.0) pg 25.0 L MCHC (32.0-36.0) % 32.6 RDW (11.8-14.1) % 13.6 Plt Count (130-400) 10^3/uL 228 MPV (8.0-11.0) fL 8.7 Immature Gran % % 0.4 Neutrophils % % 41.4 Lymphocytes % % 49.3 Monocytes % % 6.6 Eosinophils % % 1.9 Basophils % % 0.4 Nucleated RBC % (0.0-0.3) % 0.0 Absolute Neutrophils (1.2-6.7) 10^3/uL 3.36 Absolute Lymphocytes (1.2-3.4) 10^3/uL 3.98 H Absolute Monocytes (0.1-0.8) 10^3/uL 0.53 Absolute Eosinophils (0.0-0.7) 10^3/uL 0.15 Absolute Basophils (0.0-0.2) 10^3/uL 0.03 VBG pH (7.31-7.41) 7.35 VBG pCO2 (41-51) mmHg 50 VBG pO2 mmHg 32 VBG HCO3 (23-28) mmol/L 28 VBG Total CO2 (24-29) mmol/L 25 VBG O2 Saturation % 57 VBG Base Excess (-2-3) mmol/L 2 Sodium (136-145) mmol/L 142 Potassium (3.5-5.1) mmol/L 3.5 Chloride (98-107) mmol/L 104 Carbon Dioxide (21.0-32.0) mmol/L 28.4 Anion Gap (3-11) mmol/L 9.6 BUN (7-18) mg/dL 13 Creatinine (0.70-1.30) mg/dL 1.0 Est GFR (CKD-EPI 2020) (mL/min/1.73m2) 88.88 Glucose (74-106) mg/dL 133 H Calcium (8.5-10.1) mg/dL 8.9 Total Bilirubin (0.2-1.0) mg/dL 0.39 AST (15-37) U/L 19 ALT (16-63) U/L 53 Alkaline Phosphatase (46-116) U/L 93 Troponin I (< or =60) ng/L < 50 NT-Pro-B Natriuret Pep (<300) pg/mL 18 Total Protein (6.4-8.2) g/dL 7.7 Albumin (3.4-5.0) g/dL 3.8 Quality:SDOH Health Related Social Needs: No Data to Display PFSH All Active Problems (Updated 01/10/24 @ 06:32 by Zelda Cedeño MD) Asthma (Chronic) COVID-19 (Acute) Behcets syndrome (Acute) Allergic rhinitis due to food (Acute) Acute prostatitis (Acute) Chronic rhinitis (Acute) Post-nasal drip (Acute) Seasonal allergic rhinitis due to pollen (Acute) Tension headache (Acute 06/11/16) Migraine with aura and without status migrainosus, not intractable (Acute 06/11/16) Chronic midline low back pain with bilateral sciatica (Acute 03/12/16) Allergic rhinitis due to pollen (Acute 07/05/15) Allergic rhinitis due to other allergen (Acute 01/17/14) Medical History (Updated 01/10/24 @ 06:32 by Zelda Cedeño MD) Obstructive sleep apnea Vasovagal syncope Oral ulceration Uveitis of both eyes Carpal tunnel syndrome, bilateral Diabetic peripheral neuropathy Diabetes type 2, controlled Fibromyalgia Gastroesophageal reflux disease Chronic low back pain Chronic neck pain Migraine Osteoarthritis Hyperlipidemia Hypertension Heart disease Surgical History History of appendectomy History of shoulder surgery RIGHT SHOULDER Family History (Updated 05/18/18 @ 15:20 by Jo Vital LPN) Father Heart disease Mother Asthma Other Sickle cell anemia Social History Smoking/Tobacco Use Status: Never Smoking risk assessment performed?: Yes Alcohol Intake: never Drug use: Never Substance use type: does not use Household members: spouse and children 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
[2024-01-10] MEDS: Albuterol 2.5 MG/3 ML INH SOLN VIAL UPD (05:00)
[2024-01-10] MEDS: Dexamethasone 10 MG/ML VIAL IVP (05:01)
[2024-01-10 05:22] LABS: NT-proBNP 18 pg/mL (<300); Troponin I < 50 ng/L (< or =60)
[2024-01-10] MEDS: Normal Saline - Diluent 50 ML VIAL IJ (05:26)
[2024-01-10] MEDS: Omnipaque 350 MG/ML 100 ML BTL IJ (05:27)
--- NOTE | 2024-01-10 05:52 | DI.VRAD_ITS ---
PROCEDURE INFORMATION: Exam: XR Chest Exam date and time: 01/10/2024 4:04 AM Age: 53 years old Clinical indication: Shortness of breath; Additional info: Covid +, SOB TECHNIQUE: Imaging protocol: Radiologic exam of the chest. Views: 1 view. COMPARISON: CT CHEST PE CTA 03/21/2022 9:00 PM FINDINGS: Lungs: Study limited by apical lordotic projection. Even allowing for projection, the margin of the left hemidiaphragm is indistinct which implies the presence of any combination of lower left lung pneumonia, aspiration, atelectasis, and/or pleural effusion. Pleural spaces: See Lungs finding. Heart/Mediastinum: Unremarkable. No cardiomegaly. Bones/joints: Unremarkable. IMPRESSION: 1. Study limited by apical lordotic projection. 2. Even allowing for projection, the margin of the left hemidiaphragm is indistinct which implies the presence of any combination of lower left lung pneumonia, aspiration, atelectasis, and/or pleural effusion. Dictated and Authenticated by: Ponce Palafox MD. Ordering:KUSUM Ndiaye MD
--- NOTE | 2024-01-10 06:03 | DI.VRAD_ITS ---
PROCEDURE INFORMATION: Exam: CTA Chest With Contrast Exam date and time: 01/10/2024 5:39 AM Age: 53 years old Clinical indication: Shortness of breath; Other: Pleuritic pain; Additional info: SOB, pleuritic pain, covid + TECHNIQUE: Imaging protocol: Computed tomographic angiography of the chest with contrast. Exam focused on the arteries. 3D rendering (Not supervised by radiologist): MIP and/or 3D reconstructed images were created by the technologist. Contrast material: OMNI 350; Contrast volume: 100 ml; Contrast route: INTRAVENOUS (IV); COMPARISON: CT CHEST PE CTA 03/21/2022 9:00 PM FINDINGS: Pulmonary arteries: Normal. No pulmonary emboli. Aorta: Unremarkable. No aortic aneurysm. No aortic dissection. Lungs: Unremarkable. No consolidation. No masses. Pleural spaces: Unremarkable. No pneumothorax. No pleural effusion. Heart: Unremarkable. No pericardial effusion. Esophagus: Esophagus is unremarkable. Lymph nodes: Unremarkable. No enlarged lymph nodes. Diaphragm: Small hiatal hernia. Bones/joints: Unremarkable. No acute fracture. Soft tissues: Unremarkable. IMPRESSION: No acute findings. Dictated and Authenticated by: Ponce Palafox MD. Ordering:KUSUM Ndiaye MD
[2024-01-10] MEDS: Cyclobenzaprine 10 MG TAB PO (06:39)
[2024-01-10 06:57] LABS: Troponin I < 50 ng/L (< or =60)
[2024-01-10] MEDS: Dexamethasone 4 MG TAB 8 MG PO (07:05)
[2024-01-10] MEDS: Cyclobenzaprine 10 MG TAB, 3 TABS/BTL PO (07:05)
== END 2024-01-10 07:05 | disposition home or self-care (01) ==
PROVIDERS: Emergency Provider Student in an Organized Health Care Education/Training Program; PCP Internal Medicine
DX: R06.02 Shortness of breath; I10 Essential (primary) hypertension; J45.909 Unspecified asthma, uncomplicated; R07.89 Other chest pain; U07.1 COVID-19
CPT/HCPCS: 36415; 71275; 80053; 82805; 93005; 94640; 96374; 99285; 71045; 83880; 84484; 85025; 93010; 99283; J1100; J3490; J7613; J7620; J8540

== ENCOUNTER 2024-01-26 10:15 | Day surgery (SDC) | payer BC, SELFPAY ==
--- NOTE | 2024-01-25 08:41 | PDOC.DSDIS_ITS ---
Date of service: 01/26/24 Time of Service: 12:39 Discharge Plan Disposition Patient Disposition: Home Condition: Good Discharge Details Reason For Visit: screening colonoscopy Attending Provider: Wily Rodney Primary Care Provider: Cecy Rasmussen Home Meds and New Rx's Prescriptions: Continued Mounjaro 5 mg/0.5 mL pen injector 5 mg subcut QWEEK metformin 500 mg tablet 1,000 mg PO DAILY Linzess 290 mcg capsule 290 mcg PO DAILY acetaminophen 325 MG tablet 650 mg PO PRN Systane (PF) 1 EACH dropperette 1 ea Ophthalmic DAILY esomeprazole magnesium 40 MG capsule,delayed release(DR/EC) 40 mg PO DAILY epinephrine 0.3 MG/SYR auto-injector 1 ea IM PRN PRN albuterol sulfate [ProAir HFA] 200 PUFF HFA aerosol inhaler 2 puff inhalation PRN PRN fluticasone propionate [Flovent Diskus] 250 MCG blister with device 1 inh inhalation BID amlodipine 5 mg tablet 5 mg PO DAILY irbesartan-hydrochlorothiazide 300-12.5 mg tablet 1 tab PO DAILY metoprolol succinate 25 mg tablet extended release 24 hr 50 mg PO DAILY Patient Comments: take 1 AND 1/2 tablets by mouth once daily colchicine 0.6 mg tablet 0.6 mg PO DAILY Patient Comments: take 1 tablet by mouth once daily montelukast 10 mg tablet 1 tab PO DAILY Patient Comments: take 1 tablet by mouth once daily infliximab [Remicade] 100 mg Recon Soln 500 mg IV DIRECTED Rx Instructions: unsure of dose Combivent Respimat 20-100 mcg/actuation mist 1 puff inhalation Q6H Qty: 4 0RF cyclobenzaprine 10 mg tablet 10 mg PO TID PRNQty: 10 0RF Discontinued polyethylene glycol 3350 17 gram/dose powder 238 g PO ONCE Qty: 238 0RF Rx Instructions: take per colonoscopy instructions bisacodyl [Dulcolax (bisacodyl)] 5 mg tablet,delayed release (DR/EC) 5 mg PO ONCE Qty: 4 0RF Rx Instructions: take per colonoscopy instructions Discharge Instructions Instructions: Diverticulosis, High-fiber diet Additional Instructions: Anna Marie, it was very nice to meet you today, and I hope the procedure was fairly comfortable for you. Your upper endoscopy looks totally normal. I do not see any signs of active inflammation or ulceration that would explain the bleeding that you have been experiencing. Similarly, your colonoscope was very reass uring. I did find and remove 1 small polyp today. Will take about a week or so to get the results of the polyp report. I am skeptical that that would cause any of your symptoms. You do have a little bit of diverticulosis. These are weak spots in the muscular part of the colon wall. They can bleed, and the bleeding usually does stop on its own, so I suppose that could explain it. I did take the liberty of scheduling a follow-up appointment with Dr. Alvarez on February 11 at 2:30 PM. It looks like she ordered an ultrasound of your abdomen, and she can review the results of that with you at that time. I also perform some biopsies of your stomach to rule out an infection called Helicobacter pylori, that can cause some irritation of the stomach and occasional bleeding. Those results should be available as well. 1. If tolerated, consume a soft, low fiber diet for 1-2 days. [address] Do not drive, drink alcohol, operate machinery, make critical decisions, or do activities that require coordination or balance for 24 hours. 3. Because air was put into your colon during the procedure, expelling air from your rectum (passing gas or farting) is normal. 4. You may not have a bowel movement for 1-3 days because of the colonoscopy prep. This is normal. 5. Go directly to the emergency room if you notice any of the following: Develop chills (warm to touch), or if you have a thermometer and your temperature is above 101 Difficulty breathing or difficultly swallowing Persistent vomiting Severe abdominal pain, other than gas cramps Severe chest pain Black, tarry stools Any bleeding ? exceeding one tablespoon 6. Call your physician if the site where your intravenous was started becomes red, swollen, painful, and warm to touch. 7. Your physician has reviewed your pre-procedure medications. Please continue to take those medications as previously ordered. You will be given specific information/education regarding any changes to your medications before leaving. Activity:: Activity as Tolerated Diet:: As Tolerated Discharge Orders Discharge Orders: Discharge Order (Routine); Ordered 01/25/24 Ordered By: Wily Rodney DS: Diagnosis Discharge Diagnosis (1) Encounter for screening colonoscopy: Status: Acute Asessment and Plan: Outpatient follow-up
--- NOTE | 2024-01-25 08:43 | W.COLOREPORT ---
Date of service: 01/26/24 Time of Service: 12:43 Colonoscopy Report Date of procedure: 01/26/24 Pre-op diagnosis general: Melena Post-op diagnosis procedure note: other (Normal EGD and colonic diverticulosis with polyp) Procedure: EGD with biopsies, and colonoscopy with polypectomy Surgeon: Wily Rodney Anesthesia Type: General:No Airway Estimated blood loss (mL): 10 Pathology: other (Random gastric antrum and body biopsies; 0.25 cm colon polyp at 100 cm from the anus) Complications: None Disposition: same day Indications: Anna Marie is a 53 year old man with ahistory of adenomatous polyps who needs his next screening colonoscopy Prep: Miralax/Dulcolax Procedure Start Time: 11:55 Procedure End Time: 12:21 Retraction Time: 10 Findings: Normal-appearing EGD; colonic diverticulosis, 0.25 cm colon polyp at 100 cm Procedure Description: After the initiation of monitored anesthetic care, and with the assistance of a bite block, I advanced a standard gastroscope through the mouth past the hypopharynx and into the esophagus.? Under the direct vision of the scope, I advanced down the esophagus towards the stomach.? The GE junction and Z-line were encountered around 38 cm from the incisors. They were totally normal-appearing. Narrowband imaging was used to assist with analysis here. There was no evidence of any Hurtado's esophagus. Kenedy the GE junction into the stomach proper and insufflated into the rugae were obliterated. I performed retroflexion. I did not see signs of hiatal hernia. Gastric mucosa was carefully examined. I did not see any signs of active inflammation or ulceration. I navigated down around the incisura angularis. Antrum and pylorus were normal-appearing. I advanced the scope into the duodenal bulb. This was totally normal. I did not see any signs of inflammation here. I advanced the camera down to about the third portion of the duodenum. I was able to visualize bile draining through the ampulla Vater. I did not see any signs of inflammation within the duodenum. I saw no stigmata of recent bleeding anywhere. I brought the camera back up into the stomach and examined it again. I did perform some random biopsies of the gastric antrum and body using cold forceps to rule out Helicobacter pylori. Stomach was then emptied, and the camera was brought back out along the length of the esophagus 1 last time. This was totally normal. We then moved Anna Marie into the left lateral decubitus position. Great care was taken to pad and support him appropriately. I began by performing an external anorectal exam.? Perineum and skin were normal, as was the anal verge.? There was no evidence of external hemorrhoids.? Next, I performed a digital rectal exam.? I did not appreciate any abnormal findings.? Next, I advanced a colonoscope into the rectal vault.? I performed retroflexion.? This appeared normal.? Using insufflation, I then advanced the colonoscope beyond the rectal folds and into the sigmoid colon before advancing towards the cecum.? There was some occasional diverticula along the length of the colon. None carried any stigmata of recent bleeding.? The scope was noted to be in the cecum by identification of the ileocecal valve and appendiceal orifice.? I then began withdrawing the colonoscope using repeated irrigation as necessary for full evaluation of the colonic mucosa. Around 100 cm from the anal verge I identified a 0.25 cm polyp. ?It appeared flat in character. ?I was able to remove this with a cold forcep polypectomy. ?I examined the site, and there was minimal bleeding. ?Once this was completed, I continued to withdraw the scope and examine the remainder of the colonic mucosa. Once the scope was withdrawn to the level of the rectum, great care was taken to examine portions of the rectal folds.? Finally, the scope was withdrawn and the patient was brought to the same-day surgery recovery unit as the anesthetic wore off. ?The findings and instructions were shared with the patient prior to discharge. Towanda Bowel Prep Towanda Bowel Prep Right Colon: 2 Left Colon: 2 Transverse Colon: 2 Total Score: 6
--- NOTE | 2024-01-26 06:26 | W.ANESPRE ---
General Info Date of Service Date Performed: 01/26/24 Height: 5 ft 11 in Weight: 116 kg Body Mass Index (BMI): 35.6 Surgical Procedure: Operation Date: 01/26/24 13:05 Proposed Procedure Side Surgeon p Colonoscopy/Gastroscopy Wily Rodney MD Meds Allergies and Home Medications Allergies Allergy/AdvReac Type Severity Reaction Status Date / Time [id number] Reductase Allergy Unknown unknown Verified 01/10/24 03:36 Inhibitor apple Allergy Unknown Unverified 01/10/24 03:36 nut - unspecified Allergy unknown Unverified 01/10/24 03:36 peaches Allergy Severe Anaphylaxis Uncoded 01/21/24 13:11 Home Medication Medication Instructions Recorded epinephrine 0.3 mg/0.3 mL 1 ea IM PRN PRN 11/28/15 injection, auto-injector esomeprazole magnesium 40 mg 40 mg PO DAILY 11/28/15 capsule,delayed release albuterol sulfate 90 mcg/actuation 2 puff inhalation PRN PRN 08/24/17 aerosol inhaler (ProAir HFA) fluticasone propionate 250 1 inh inhalation BID 08/24/17 mcg/actuation blister powder for inhalation (Flovent Diskus) acetaminophen 325 mg tablet 650 mg PO PRN 10/08/17 peg 400-propylene glycol (PF) 0.4 1 ea ophthalmic (eye) DAILY 10/08/17 %-0.3 % eye drops in a dropperette (Systane (PF)) amlodipine 5 mg tablet 5 mg PO DAILY 10/21/20 colchicine 0.6 mg tablet 0.6 mg PO DAILY 10/21/20 irbesartan 300 1 tab PO DAILY 10/21/20 mg-hydrochlorothiazide 12.5 mg tablet metoprolol succinate 25 mg 50 mg PO DAILY 10/21/20 tablet,extended release 24 hr infliximab 100 mg intravenous 500 mg IV DIRECTED 03/21/22 solution (Remicade) ipratropium 20 mcg-albuterol 100 1 puff inhalation Q6H #4 grams 03/21/22 mcg/actuation mist for inhalation (Combivent Respimat) montelukast 10 mg tablet 1 tab PO DAILY 03/21/22 cyclobenzaprine 10 mg tablet 10 mg PO TID PRN #10 tabs 01/10/24 linaclotide 290 mcg capsule 290 mcg PO DAILY 01/21/24 (Linzess) metformin 500 mg tablet 1,000 mg PO DAILY 01/21/24 tirzepatide 5 mg/0.5 mL 5 mg subcut QWEEK 01/21/24 subcutaneous pen injector (Delia) Current Visit Medications: Current Medications Generic Name Dose Route Start Last Admin Trade Name Edaurdq PRN Reason Stop Dose Admin Ringer's Solution 1,000 mls @ 80 mls/hr 01/26/24 06:00 IV 01/26/24 23:59 INFUSION FAHEEM IV Miscellaneous Supplies 1 each 01/26/24 06:00 Iv Access IV 01/26/24 23:59 DIRECTED FAHEEM Sodium Chloride 0 ml 01/26/24 06:00 Normal Saline Flush 10 Ml Syr IV 01/26/24 23:59 PRN PRN Sodium Chloride 0 ml 01/26/24 06:00 Normal Saline 10 Ml Vial IJ 01/26/24 23:59 DIRECTED PRN Sterile Water 0 ml 01/26/24 06:00 Water,Injection,Sterile 10 Ml Vial IJ 01/26/24 23:59 DIRECTED PRN PFSH Active Problems Active Problems: Problem Status Onset Code Encounter for screening colonoscopy Z12.11 Fatty liver disease, nonalcoholic K76.0 Hiatal hernia with GERD K44.9, K21.9 Hx of adenomatous colonic polyps Z86.010 ASHLEY on CPAP G47.33 Nausea and vomiting in adult R11.2 Abdominal pain R10.9 Black tarry stools K92.1 Asthma J45.909 COVID-19 U07.1 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 Allergic rhinitis due to food J30.5 Acute prostatitis N41.0 Chronic rhinitis J31.0 Post-nasal drip R09.82 Seasonal allergic rhinitis due to pollen J30.1 Tension headache 06/11/16 G44.209 Migraine with aura and without status migrainosus, not intractable 06/11/16 G43.109 Chronic midline low back pain with bilateral sciatica 03/12/16 M54.41, M54.42, G89.29 Allergic rhinitis due to pollen 07/05/15 J30.1 Allergic rhinitis due to other allergen 01/17/14 J30.89 Medical History Medical History Obstructive sleep apnea Vasovagal syncope Oral ulceration Uveitis of both eyes Carpal tunnel syndrome, bilateral Diabetic peripheral neuropathy Diabetes type 2, controlled Fibromyalgia Gastroesophageal reflux disease Chronic low back pain Chronic neck pain Migraine Osteoarthritis Hyperlipidemia Hypertension Heart disease Surgical History Surgical History History of colonoscopy with polypectomy (~02/23/19) 04/05/2016 [facility] tubular adenoma History of shoulder surgery RIGHT SHOULDER History of appendectomy Tobacco Smoking/Tobacco Use Status: Never Alcohol Alcohol Intake: never Substance Use Substance use: Never Substance use type: does not use Vital Signs and Lab Results Vital Signs Most Recent Vital Signs in EMR: Temp Pulse Resp BP Pulse Ox 36.1 C L 90 16 146/91 H 99 01/26/24 10:38 01/26/24 10:38 01/26/24 10:38 01/26/24 10:38 01/26/24 10:38 Lab Results Blood Type / Crossmatch: No Data to Display Complete Blood Count: White Blood Count 8.08 10^3/uL (4.4-10.8) 01/10/24 04:20 Red Blood Count 5.73 10^6/uL (4.36-5.78) 01/10/24 04:20 Hemoglobin 14.3 g/dL (13.5-17.5) 01/10/24 04:20 Hematocrit 43.9 % (40.0-50.0) 01/10/24 04:20 Platelet Count 228 10^3/uL (130-400) 01/10/24 04:20 Complete Metabolic Panel: Sodium 142 mmol/L (136-145) 01/10/24 04:20 Potassium 3.5 mmol/L (3.5-5.1) 01/10/24 04:20 Chloride 104 mmol/L (98-107) 01/10/24 04:20 Carbon Dioxide 28.4 mmol/L (21.0-32.0) 01/10/24 04:20 BUN 13 mg/dL (7-18) 01/10/24 04:20 Creatinine 1.0 mg/dL (0.70-1.30) 01/10/24 04:20 Est GFR (CKD-EPI 2020) 88.88 (mL/min/1.73m2) 01/10/24 04:20 Calcium 8.9 mg/dL (8.5-10.1) 01/10/24 04:20 Albumin 3.8 g/dL (3.4-5.0) 01/10/24 04:20 Glucose 133 mg/dL (74-106) H 01/10/24 04:20 Liver Function Panel: Alanine Aminotransferase (ALT/SGPT) 53 U/L (16-63) 01/10/24 04:20 Aspartate Amino Transf (AST/SGOT) 19 U/L (15-37) 01/10/24 04:20 Coagulation Panel: No Data to Display Cardiac Panel: Troponin I < 50 ng/L (< or =60) 01/10/24 NT-Pro-B Natriuret Pep 18 pg/mL (<300) 01/10/24 Arterial Blood Gas: No Data to Display Venous Blood Gas: Venous Blood pH 7.35 (7.31-7.41) 01/10/24 04:20 Venous Blood Partial Pressure O2 32 mmHg 01/10/24 04:20 Venous Blood Partial Pressure CO2 50 mmHg (41-51) 01/10/24 04:20 Venous Blood Oxygen Saturation 57 % 01/10/24 04:20 Venous Blood HCO3 28 mmol/L (23-28) 01/10/24 04:20 Venous Blood Base Excess 2 mmol/L (-2-3) 01/10/24 04:20 Venous Blood Total Carbon Dioxide 25 mmol/L (24-29) 01/10/24 04:20 Pancreas Panel: No Data to Display Thyroid Panel: No Data to Display Infectious Disease: No Data to Display Blood Cultures: No Data to Display Toxicology Panel: No Data to Display Imaging and Studies Imaging and Studies Study information below may be from another EMR and interpreted by another provider. Please see original notes in EMR for more complete details. EKG Summary: 01/11: sinus rhythm. Anesthesia Assessment and Plan Anesthesia History Personal History: No History of Anesthesia Complications Family History: No Family History of Anesthesia Complications Exercise Tolerance Exercise Tolerance: Metabolic Equivalents>4 Cardiac & Pulmonary Exam Cardiac Exam: Normal S1/S2 Heart Sounds Pulmonary Exam: Clear Bilateral Breath Sounds Implantable Cardiac Device Does patient have a Pacemaker or an ICD?: No Airway Exam Known Difficult Airway: No Mallampati Class: 3 Mouth Opening: Normal (> 3cm) Thyromental Distance: Greater than 3 cm Neck Range of Motion: Full ROM Neck Circumference: Normal Teeth Condition: Normal Dentition ASA Classification ASA Score: ASA 2 Emergency Case?: No NPO Status NPO Status: NPO Clears >2 hours, Solids >8 hours Anesthesia Plan Resuscitation Status: Full Code Anesthesia Technique: General Anesthesia Airway Planned: Natural Airway Monitors Used: Standard Monitors Preoperative Comments:: 53 yo male for colo. Sig PMHx: HTN, asthma, COVID positive 01/09 (feeling better), GERD (well controlled), ASHLEY, fatty liver, behcet's, fibro. never smoker/etoh.
[2024-01-26 10:38] VITALS: BP 146/91; PULSE 90; RESP 16; TEMP 36.1; O2SAT 99
[2024-01-26] MEDS: Lactated Ringers 1,000 ML 80 ML IV (10:56)
[2024-01-26 11:38] VITALS: BMI 35.6
--- NOTE | 2024-01-26 11:42 | W.PREOPHP ---
Assessment and Plan Assessment and plan (1) Black tarry stools: Status: Acute Assessment and plan: We reviewed the plan for diagnostic EGD and colonoscopy today, as well as the risks and benefits of the procedure. I think he has very good understanding of what to expect, and he was able to provide consent. We can proceed as planned. History of Present Illness History of Present Illness Chief Complaint: Melena Narrative: This is is 53 years old. He is referred from the medical center for colonoscopy and EGD. By way of some history, he has Behcets syndrome. Over the past several weeks he noticed some darkening of the stools that was associated with some nonfocal upper abdominal pain. He has a longstanding history of GERD which is treated with esomeprazole. He is also on Remicade for the Bechets syndrome. He underwent colonoscopy in the past. Most recently in 2019 which was negative. Prior to that, he had some adenomatous polyps removed. He denies any bright red blood per rectum. He denies any family history of colorectal cancers. PFSH All Active Problems Encounter for screening colonoscopy (Acute) Fatty liver disease, nonalcoholic (Acute) Hiatal hernia with GERD (Acute) Hx of adenomatous colonic polyps (Acute) ASHLEY on CPAP (Chronic) Nausea and vomiting in adult (Acute) Abdominal pain (Acute) Black tarry stools (Acute) Asthma (Chronic) COVID-19 (Acute) Behcets syndrome (Acute) Allergic rhinitis due to food (Acute) Acute prostatitis (Acute) Chronic rhinitis (Acute) Post-nasal drip (Acute) Seasonal allergic rhinitis due to pollen (Acute) Tension headache (Acute 06/11/16) Migraine with aura and without status migrainosus, not intractable (Acute 06/11/16) Chronic midline low back pain with bilateral sciatica (Acute 03/12/16) Allergic rhinitis due to pollen (Acute 07/05/15) Allergic rhinitis due to other allergen (Acute 01/17/14) Medical History Obstructive sleep apnea Vasovagal syncope Oral ulceration Uveitis of both eyes Carpal tunnel syndrome, bilateral Diabetic peripheral neuropathy Diabetes type 2, controlled Fibromyalgia Gastroesophageal reflux disease Chronic low back pain Chronic neck pain Migraine Osteoarthritis Hyperlipidemia Hypertension Heart disease Surgical History History of colonoscopy with polypectomy (~02/23/19) 04/05/2016 [facility] tubular adenoma History of shoulder surgery RIGHT SHOULDER History of appendectomy Family History Father Heart disease Mother Asthma Other Sickle cell anemia Social History Smoking/Tobacco Use Status: Never Smoking risk assessment performed?: Yes Alcohol Intake: never Drug use: Never Substance use type: does not use Household members: spouse and children Housing: house current occupation: [employer] Do you feel safe at home: Yes Do you feel safe in your relationship?: Yes Meds Allergies and Home Medications Allergies Allergy/AdvReac Type Severity Reaction Status Date / Time Qtmktdd-HBR-ReR Reductase Allergy Unknown unknown Verified 01/10/24 03:36 Inhibitor apple Allergy Unknown Unverified 01/10/24 03:36 nut - unspecified Allergy unknown Unverified 01/10/24 03:36 peaches Allergy Severe Anaphylaxis Uncoded 01/21/24 13:11 Home Medications Medication Instructions Recorded Confirmed Type epinephrine 0.3 mg/0.3 mL 1 ea IM PRN PRN 11/28/15 01/26/24 History injection, auto-injector esomeprazole magnesium 40 mg 40 mg PO DAILY 11/28/15 01/26/24 History capsule,delayed release albuterol sulfate 90 mcg/actuation 2 puff inhalation PRN PRN 08/24/17 01/26/24 History aerosol inhaler (ProAir HFA) fluticasone propionate 250 1 inh inhalation BID 08/24/17 01/26/24 History mcg/actuation blister powder for inhalation (Flovent Diskus) acetaminophen 325 mg tablet 650 mg PO PRN 10/08/17 01/26/24 History peg 400-propylene glycol (PF) 0.4 1 ea ophthalmic (eye) DAILY 10/08/17 01/26/24 History %-0.3 % eye drops in a dropperette (Systane (PF)) amlodipine 5 mg tablet 5 mg PO DAILY 10/21/20 01/26/24 History colchicine 0.6 mg tablet 0.6 mg PO DAILY 10/21/20 01/26/24 History irbesartan 300 1 tab PO DAILY 10/21/20 01/26/24 History mg-hydrochlorothiazide 12.5 mg tablet metoprolol succinate 25 mg 50 mg PO DAILY 10/21/20 01/26/24 History tablet,extended release 24 hr infliximab 100 mg intravenous 500 mg IV DIRECTED 03/21/22 01/26/24 History solution (Remicade) ipratropium 20 mcg-albuterol 100 1 puff inhalation Q6H #4 grams 03/21/22 01/26/24 Rx mcg/actuation mist for inhalation (Combivent Respimat) montelukast 10 mg tablet 1 tab PO DAILY 03/21/22 01/26/24 History cyclobenzaprine 10 mg tablet 10 mg PO TID PRN #10 tabs 01/10/24 01/26/24 Rx linaclotide 290 mcg capsule 290 mcg PO DAILY 01/21/24 01/26/24 History (Linzess) metformin 500 mg tablet 1,000 mg PO DAILY 01/21/24 01/26/24 History tirzepatide 5 mg/0.5 mL 5 mg subcut QWEEK 01/21/24 01/21/24 History subcutaneous pen injector (Mounjaro) Exam Const General: cooperative, healthy appearing and not in acute distress Neck Neck: normal visual inspection, no lymphadenopathy and supple Resp Effort & Inspection: normal respiratory effort Auscultation: clear to auscultation bilaterally Cardio Jugular venous pressure: no JVD Rate: regular rate Rhythm: regular rhythm Heart Sounds: S1 normal and S2 normal GI Inspection: normal to inspection Palpation: soft, no guarding, no hernias and nontender Percussion: normal to percussion Auscultation: normal bowel sounds Neuro General: patient alert, patient awake and patient oriented x3 Psych Appearance: grossly normal Results Last Vital Signs Temp 97.0 F L 01/26/24 10:38 Pulse 90 01/26/24 10:38 Resp 16 01/26/24 10:38 BP 146/91 H 01/26/24 10:38 Pulse Ox 99 01/26/24 10:38
--- NOTE | 2024-01-26 11:59 | STOM_PTH ---
PATIENT: Nela Phelan LOC: NADJA U#:[id number] AGE/SX: 53/M ROOM: RE01/26/[address]: Wily Rodney MD : [id number] BED: DIS: 01/26/2024 SPEC #: [id number] RECD: 01/26/24 13:24 STATUS: ZANDER RE #: [id number] OG: 01/26/24 11:[address]: Wily Rodney DEPT: Surgical Specimen RECD BY: Kathy James ENTERED: 01/26/24 13:26 SP TYPE: STOMACH OTHR DR: Cecy Rasmussen Tissues: 1 - STOMACH BIOPSY 2 - STOMACH BIOPSY 3 - BIOPSY BOWEL Procedures: GROSS AND MICRO LEVEL 4 Comments: [id number]
[2024-01-26 12:30] VITALS: BP 115/69; PULSE 86; RESP 16; TEMP 36.1; O2SAT 93
--- NOTE | 2024-01-26 12:41 | W.ANESPOSTOP ---
Postoperative Evaluation Date, Time and Location Date Performed: 01/26/24 Time Performed: 12:41 Patient Location: Day Surgery Unit Vital Signs Most Recent Imported Vital Signs: Most Recent Vital Signs Temp Pulse Resp BP Pulse Ox 36.1 C L 86 16 115/69 93 01/26/24 12:30 01/26/24 12:30 01/26/24 12:30 01/26/24 12:30 01/26/24 12:30 Pain Score Most Recent Pain Score: Most Recent Pain Score Pain Level 0 01/26/24 12:30 Assessment Mental Status: Awake (Alert & Oriented to Patient Baseline) Airway and Respiratory Function: Patent airway with normal (patient baseline) respiratory exam Cardiovascular Function: Hemodynamically Stable Hydration Status: Adequately Hydrated Nausea & Vomiting: No Nausea or Vomiting Pain: Pt. Denies Any Pain Peripheral Nerve Block: Patient did not receive a nerve block
[2024-01-26 13:08] VITALS: BP 124/94; PULSE 76; RESP 16; TEMP 36.4; O2SAT 95
== END 2024-01-26 13:25 | disposition home or self-care (01) ==
LOC: SUR 10:15
PROVIDERS: PCP Internal Medicine; Visit Provider Surgery
PROC: (CPT 45380; principal; 2024-01-26 13:00)
DX: Z12.11 Encounter for screening for malignant neoplasm of colon; K92.1 Melena; K57.30 Diverticulosis of large intestine without perforation or abscess without bleeding; D12.3 Benign neoplasm of transverse colon; K21.9 Gastro-esophageal reflux disease without esophagitis; J45.909 Unspecified asthma, uncomplicated; G47.33 Obstructive sleep apnea (adult) (pediatric); K76.0 Fatty (change of) liver, not elsewhere classified; M35.2 Behcet's disease
CPT/HCPCS: 45380; 43239; 88305; J2250; J2405; J2704

== ENCOUNTER → 2024-02-18 01:08 | Outpatient (CLI) | payer BC, SELFPAY ==
--- NOTE | 2024-02-18 07:15 | DI.NM_ITS ---
Exam(s) NM HEPATOBILIARY CCK GRP EXAM: NM HEPATOBILIARY CCK GRP CLINICAL HISTORY: ruq pain/nausea/bloating, fatty liver, abd pain. TECHNIQUE: Injected dose: 5 mCi Tc-99 mebrofenin Initial dynamic images: 60 minutes Post-Gallbladder fillin.02 mcg/kg CCK intravenously over a 30min infusion. Additional images: 30 minute dynamic during CCK administration. COMPARISON: US US ABDOMEN LIMITED from 02/06/2024 FINDINGS: Normal hepatic transit time. Prompt excretion into the small bowel. Prompt excretion into the gallbladder. Gallbladder ejection fraction: 21 percent, below the normal range. Patient was asymptomatic during CCK infusion. IMPRESSION: 1. Low gallbladder ejection fraction of 21 percent. SN guidelines: Gallbladder visualization should be present by 3 hours. Delayed [id number] monae sit beyond 60 min raises the suspicion for partial common bile duct (CBD) obstruction. Gallbladder ejection fraction <35% has a good correlation with acalculous disease (i.e., chronic acal culous cholecystitis, cystic duct syndrome, sphincter of Oddi disease).
[2024-02-18] MEDS: Sincalide 5 MCG VIAL 1.8 MCG IJ (11:58)
[2024-02-18] MEDS: Water,Injection,Sterile 10 ML VIAL IJ (11:59)
== END ==
PROVIDERS: PCP Internal Medicine; Visit Provider Surgery
DX: R11.2 Nausea with vomiting, unspecified (principal); K76.0 Fatty (change of) liver, not elsewhere classified; R10.9 Unspecified abdominal pain; I51.9 Heart disease, unspecified; R14.0 Abdominal distension (gaseous); R11.0 Nausea; K82.8 Other specified diseases of gallbladder
CPT/HCPCS: 78227; J2805

== ENCOUNTER 2024-03-23 06:15 | Day surgery (SDC) | payer BC, SELFPAY ==
--- NOTE | 2024-03-22 21:49 | W.PM.DSUDISC ---
Date of service: 03/23/24 Time of Service: 09:41 Discharge Plan Disposition Patient Disposition: Home Condition: Good Discharge Details Reason For Visit: gallbladder removal Attending Provider: Sakshi Alvarez Primary Care Provider: Cecy Rasmussen Home Meds and New Rx's Prescriptions: New tramadol 50 mg tablet 50 mg PO Q4H PRNQty: 14 0RF ondansetron 4 mg tablet,disintegrating 4 mg PO Q6H PRNQty: 10 0RF Continued Mounjaro 5 mg/0.5 mL pen injector 5 mg subcut QWEEK metformin 500 mg tablet 1,000 mg PO DAILY Linzess 290 mcg capsule 290 mcg PO DAILY acetaminophen 325 MG tablet 650 mg PO PRN Systane (PF) 1 EACH dropperette 1 ea Ophthalmic DAILY esomeprazole magnesium 40 MG capsule,delayed release(DR/EC) 40 mg PO DAILY epinephrine 0.3 MG/SYR auto-injector 1 ea IM PRN PRN albuterol sulfate [ProAir HFA] 200 PUFF HFA aerosol inhaler 2 puff inhalation PRN PRN fluticasone propionate [Flovent Diskus] 250 MCG blister with device 1 inh inhalation BID amlodipine 5 mg tablet 5 mg PO DAILY irbesartan-hydrochlorothiazide 300-12.5 mg tablet 1 tab PO DAILY metoprolol succinate 25 mg tablet extended release 24 hr 50 mg PO DAILY Patient Comments: take 1 AND 1/2 tablets by mouth once daily colchicine 0.6 mg tablet 0.6 mg PO DAILY Patient Comments: take 1 tablet by mouth once daily montelukast 10 mg tablet 1 tab PO DAILY Patient Comments: take 1 tablet by mouth once daily infliximab [Remicade] 100 mg Recon Soln 500 mg IV DIRECTED Rx Instructions: unsure of dose Combivent Respimat 20-100 mcg/actuation mist 1 puff inhalation Q6H Qty: 4 0RF cyclobenzaprine 10 mg tablet 10 mg PO TID PRNQty: 10 0RF Discharge Instructions Additional Instructions: Care after Gallbladder Surgery -Pain control: ?For the first 72 hours after surgery, take your pain meds continuously, and not just when you have pain.?? Alternate Tylenol 1000mg by mouth every 8 hours. ??Use the tramadol for breakthrough pain- pain that is greater than a 7. -Take Remicade as previously prescribed -You can resume Mounjaro on . ?- Use ICE! Ice really helps to keep the swelling down, and swelling causes pain. ??Twenty minutes on, and then off, continuously for the first 72hours.? After the first 72hrs, you can just use the Tylenol, ibuprofen or Celebrex, and ice, when you have pain.?? If you are taking narcotic pain medication, follow the instructions on the label and do not drive. Pain medications can make you very constipated. Make sure you are moving your bowels daily. If not, take Miralax. - Anesthesia makes you very constipated.? Take a dose of Miralax the morning after surgery. ? Use an ice bag for the first 72 hours. This helps to decrease swelling, which causes pain. It is normal to be more sore/painful and swollen towards the end of the day and first thing in the morning. ? Gallbladder surgery can make you very nauseated; use Zofran for nausea, for the first 24 hours. The nausea generally stops after 24 hours. ? Use Miralax or prune juice to prevent constipation (this is a particular side effect of pain medication and anesthesia). Do not allow yourself to become constipated. ? Avoid fatty or greasy foods; introduce these slowly, with care, after about 1 month. High-fat foods include: ? Foods that are fried, like Spanish fries and potato chips ? High-fat meats, such as poole, bologna, sausage, ground beef, and ribs, pork products ? High-fat dairy products, such as cheese, ice cream, cream, whole milk, and sour cream ? Pizza ? Foods made with lard or butter ? Creamy soups or sauces ? Meat gravies ? Chocolate ? Oils, such as palm and coconut oil ? Skin of chicken or turkey ? Nuts and nut butters ? Avocadoes ? Start out eating very small, bland amounts of food. Do not take pain pills on an empty stomach. - You will notice purple discoloration around the incisions.? This is the ?skin glue?.? This will wear off on its own.? It is OK to shower after 24hrs.? You do not need to cover the incisions. -You should walk frequently, gradually, increasing the distance. You may climb stairs, just go slowly. ? Do not go swimming or sit in a hot tub for two weeks. ? There are no stitches to remove. ? Do not drive your car x72hrs and then only if you have no pain and can move freely. Do not drive if you are taking pain narcotic pain medications. ? You may resume sexual activity whenever pain and soreness subside, usually in 2 weeks. ? Do no lift anything over 5 lbs. for two weeks. ? You may return to work in one week, or when you feel able, provided you do not have to do any heavy lifting or prolonged standing. ? You should return to Dr. Alvarez?s office for a post-op appointment about two weeks after surgery. A follow-up should have been scheduled for you already.? If there is not, please call the Surgical [facility] at: [phone] to schedule an appointment. My Medications for pain and nausea are: Tylenol ?and ultram- for severe pain ?and Zofran-nausea When to Call the Office: ? If the incision becomes red or swollen, or there is more than a little drainage from it. ? If you develop a temperature higher than 100.5 F. ? If your eyes turn yellow ? Vomiting and can?t keep fluids down Activity:: see above Remove Dressings/Wound Care:: 24 hours Shower/Bathe:: 24 hours Diet:: low fat x 2 wks Discharge Orders Discharge Orders: Discharge Order (Routine); Ordered 03/23/24 Ordered By: Sakshi Alvarez DS: Diagnosis Discharge Diagnosis (1) Biliary dyskinesia: Status: Acute Asessment and Plan: The patient is doing well post-op from their lap neo surgery.? They are having no nausea or vomiting. They are tolerating liquids and a snack. The pt is not having any chest pain or SOB.? Their pain is adequately controlled. They have been able to urinate.? ?HEENT:? no eye pain/drainage/redness/swelling. Mild sore throat ?Cardio- NSR, no chest pain, BP stable- see VS record ?Pulm: no sob or productive cough. No hemoptysis ?Incision- dressing is c/d/i w/ no excessive bleeding or drainage ?I discussed with the patient the findings at the time of surgery and the patient?s progress. ?We reviewed expectations at home; what the patient could expect for recovery time, and in the post-operative period.? We discussed the importance of walking to avoid blood clots and pneumonia.? We discussed and reviewed the patient's post-operative wound care and dressing needs.?? We reviewed their step-connelly pain management plan, Rx called to the pharmacy of their choice.? We reviewed activity and limitations-see discharge instructions. We reviewed warning signs, and when to seek medical attention- see d/c instructions.?? Patient was given a postoperative follow-up appointment. Patient verbalized understanding of their postoperative instructions, how do to take care of themselves and their incision, and the pain management plan. Please see discharge instructions.? 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
[2024-03-23] VITALS (45 sets, daily range): BP systolic 96–140; BP diastolic 59–104; PULSE 58–81; RESP 9–23; TEMP 36.4–36.8; O2SAT 89–100; BMI 35.7
--- NOTE | 2024-03-23 07:00 | ANES.PREOP_ITS ---
General Info Date of Service Date Performed: 03/23/24 Height: 5 ft 11 in Weight: 116.3 kg Body Mass Index (BMI): 35.7 Surgical Procedure: Operation Date: 03/23/24 07:40 Proposed Procedure Side Surgeon p Cholecystectomy Laparoscopic, possible Open Sakshi Alvarez, DO Meds Allergies and Home Medications Allergies Allergy/AdvReac Type Severity Reaction Status Date / Time nut - unspecified Allergy Intermediate Anaphylaxis Unverified 03/19/24 10:23 Pueatyq-GAV-EoM Reductase Allergy Mild unknown Verified 03/19/24 10:23 Inhibitor apple Allergy Unknown Unverified 03/19/24 10:23 peaches Allergy Severe Anaphylaxis Uncoded 03/19/24 10:23 Home Medication ?Medication ?Instructions ?Recorded epinephrine 0.3 mg/0.3 mL 1 ea IM PRN PRN 11/28/15 injection, auto-injector esomeprazole magnesium 40 mg 40 mg PO DAILY 11/28/15 capsule,delayed release albuterol sulfate 90 mcg/actuation 2 puff inhalation PRN PRN 08/24/17 aerosol inhaler (ProAir HFA) fluticasone propionate 250 1 inh inhalation BID 08/24/17 mcg/actuation blister powder for inhalation (Flovent Diskus) acetaminophen 325 mg tablet 650 mg PO PRN 10/08/17 peg 400-propylene glycol (PF) 0.4 1 ea ophthalmic (eye) DAILY 10/08/17 %-0.3 % eye drops in a dropperette (Systane (PF)) amlodipine 5 mg tablet 5 mg PO DAILY 10/21/20 colchicine 0.6 mg tablet 0.6 mg PO DAILY 10/21/20 irbesartan 300 1 tab PO DAILY 10/21/20 mg-hydrochlorothiazide 12.5 mg tablet metoprolol succinate 25 mg 50 mg PO DAILY 10/21/20 tablet,extended release 24 hr infliximab 100 mg intravenous 500 mg IV DIRECTED 03/21/22 solution (Remicade) ipratropium 20 mcg-albuterol 100 1 puff inhalation Q6H #4 grams 03/21/22 mcg/actuation mist for inhalation (Combivent Respimat) montelukast 10 mg tablet 1 tab PO DAILY 03/21/22 cyclobenzaprine 10 mg tablet 10 mg PO TID PRN #10 tabs 01/10/24 linaclotide 290 mcg capsule 290 mcg PO DAILY 01/21/24 (Sylvia) metformin 500 mg tablet 1,000 mg PO DAILY 01/21/24 tirzepatide 5 mg/0.5 mL 5 mg subcut QWEEK 01/21/24 subcutaneous pen injector (Delia) ondansetron 4 mg disintegrating 4 mg PO Q6H PRN #10 tabs 03/22/24 tablet tramadol 50 mg tablet 50 mg PO Q4H PRN #14 tabs 03/22/24 Current Visit Medications: Current Medications Generic Name Dose Route Start Last Admin Trade Name Freq PRN Reason Stop Dose Admin Acetaminophen 1,000 mg 03/23/24 06:00 Acetaminophen 500 Mg Tab PO 03/23/24 23:59 PREOP FAHEEM Gabapentin 600 mg 03/23/24 06:00 Gabapentin 300 Mg Cap PO 03/23/24 23:59 PREOP FAHEEM Ringer's Solution 1,000 mls @ 80 mls/hr 03/23/24 06:00 IV 03/23/24 23:59 INFUSION FAHEEM Cefazolin Sodium/Dextrose 2 gm in 50 mls @ 100 mls/hr 03/23/24 06:00 Ancef Duplex IVPB 03/23/24 23:59 PREOP FAHEEM Metronidazole 500 mg in 100 mls @ 100 mls/hr 03/23/24 06:00 Flagyl IVPB 03/23/24 23:59 PREOP FAHEEM Ondansetron HCl 4 mg/ Sodium 52 mls @ 200 mls/hr 03/23/24 07:20 Chloride IVPB 04/22/24 07:19 Q6H PRN PRN IV Miscellaneous Supplies 1 each 03/23/24 06:00 Iv Access IV 03/23/24 23:59 DIRECTED FAHEEM Indocyanine Green 5 mg 03/23/24 06:00 Indocyanine Green 25 Mg Vial IVP 03/23/24 23:59 DIRECTED FAHEEM Morphine Sulfate 2 mg 03/23/24 07:20 Morphine 4 Mg/Ml Syr IVP 04/22/24 07:19 Q1H PRN PRN Sodium Chloride 0 ml 03/23/24 06:00 Normal Saline Flush 10 Ml Syr IV 03/23/24 23:59 PRN PRN Sodium Chloride 0 ml 03/23/24 06:00 Normal Saline 10 Ml Vial IJ 09/03/24 23:59 DIRECTED PRN Sterile Water 0 ml 03/23/24 06:00 Water,Injection,Sterile 10 Ml Vial IJ 03/23/24 23:59 DIRECTED PRN Tramadol HCl 50 mg 03/23/24 07:20 Tramadol 50 Mg Tab PO 04/22/24 07:19 Q6H PRN PRN Pain PFSH Active Problems Active Problems: Problem Status Onset Code Biliary dyskinesia Acute K82.8 Immunosuppression due to drug therapy Acute D84.821, Z79.899 Postprandial nausea Acute R11.0 Abdominal bloating Acute R14.0 Fatty liver disease, nonalcoholic Acute K76.0 Hiatal hernia with GERD Acute K44.9, K21.9 Hx of adenomatous colonic polyps Acute Z86.010 ASHLEY on CPAP Chronic G47.33 Nausea and vomiting in adult Acute R11.2 COVID-19 Acute U07.1 Behcets syndrome Acute M35.2 Allergic rhinitis due to food Acute J30.5 Acute prostatitis Acute N41.0 Chronic rhinitis Acute J31.0 Post-nasal drip Acute R09.82 Seasonal allergic rhinitis due to pollen Acute J30.1 Tension headache Acute 06/11/16 G44.209 Migraine with aura and without status migrainosus, not intractable Acute 06/11/16 G43.109 Chronic midline low back pain with bilateral sciatica Acute 03/12/16 M54.41, M54.42, G89.29 Allergic rhinitis due to pollen Acute 07/05/15 J30.1 Allergic rhinitis due to other allergen Acute 01/17/14 J30.89 Medical History Medical History Tubular adenoma of colon (~01/2024) Obstructive sleep apnea Vasovagal syncope Per pt states it happened several years ago, has not happened since. Oral ulceration Uveitis of both eyes Carpal tunnel syndrome, bilateral Diabetic peripheral neuropathy Diabetes type 2, controlled Fibromyalgia Gastroesophageal reflux disease Chronic low back pain Chronic neck pain Migraine Osteoarthritis Hyperlipidemia Hypertension Heart disease Pt denies Surgical History Surgical History History of esophagogastroduodenoscopy (~01/2024) History of colonoscopy with polypectomy (~01/2024) 04/05/2016 [facility] tubular adenoma History of shoulder surgery RIGHT SHOULDER History of appendectomy Tobacco Smoking/Tobacco Use Status: Never Alcohol Alcohol Intake: never Substance Use Substance use: Never Substance use type: does not use Vital Signs and Lab Results Vital Signs Most Recent Vital Signs in EMR: Most Recent Vital Signs Temp Pulse Resp BP Pulse Ox 36.8 C 67 17 129/96 H 99 03/23/24 06:38 03/23/24 06:38 03/23/24 06:38 03/23/24 06:38 03/23/24 06:38 Lab Results Blood Type / Crossmatch: No Data to Display Complete Blood Count: No Data to Display Complete Metabolic Panel: No Data to Display Liver Function Panel: No Data to Display Coagulation Panel: No Data to Display Cardiac Panel: No Data to Display Arterial Blood Gas: No Data to Display Venous Blood Gas: No Data to Display Pancreas Panel: No Data to Display Thyroid Panel: No Data to Display Infectious Disease: No Data to Display Blood Cultures: No Data to Display Toxicology Panel: No Data to Display Imaging and Studies Imaging and Studies Study information below may be from another EMR and interpreted by another provider. Please see original notes in EMR for more complete details. EKG Summary: 01/11: sinus rhythm. Anesthesia Assessment and Plan Anesthesia History Personal History: No History of Anesthesia Complications Family History: No Family History of Anesthesia Complications Exercise Tolerance Exercise Tolerance: Metabolic Equivalents>4 Pertinent Negatives Pertinent Negatives: No Major Cardiovascular Symptoms or Complaints and No Major Pulmonary Symptoms or Complaints Cardiac & Pulmonary Exam Cardiac Exam: Normal S1/S2 Heart Sounds Pulmonary Exam: Clear Bilateral Breath Sounds Implantable Cardiac Device Does patient have a Pacemaker or an ICD?: No Airway Exam Known Difficult Airway: No Mallampati Class: 3 Mouth Opening: Normal (> 3cm) Thyromental Distance: Greater than 3 cm Neck Range of Motion: Full ROM Neck Circumference: Normal Teeth Condition: Normal Dentition ASA Classification ASA Score: ASA 2 Emergency Case?: No NPO Status NPO Status: NPO Clears >2 hours, Solids >8 hours Anesthesia Plan Resuscitation Status: Full Code Anesthesia Technique: General Anesthesia Airway Planned: Endotracheal Tube Monitors Used: Standard Monitors and SedLine
[2024-03-23] MEDS: Lactated Ringers 1,000 ML 80 ML IV ×2 (07:07→11:13)
[2024-03-23] MEDS: Acetaminophen 500 MG TAB 1000 MG PO (07:08)
[2024-03-23] MEDS: Indocyanine green 25 MG VIAL 5 MG IVP (07:09)
[2024-03-23] MEDS: Gabapentin 300 MG CAP 600 MG PO (07:09)
[2024-03-23] MEDS: metroNIDAZOLE 500 MG/100 ML BAG 100 MG IVPB (07:19)
[2024-03-23] MEDS: ceFAZolin 2 GM/50 ML BAG IVPB (07:49)
[2024-03-23] MEDS: Bupivacaine 0.25% Pres-Free W/EPI 30 ML VIAL (08:15)
--- NOTE | 2024-03-23 08:40 | GB_PTH ---
PATIENT: Nela Phelan LOC: NADJA U#:[id number] AGE/SX: 53/M ROOM: RE03/23/[address]: Sakshi Alvarez : 1970 BED: DIS: 03/23/2024 SPEC #: [id number] RECD: 03/23/24 12:44 STATUS: ZANDER REQ #: [id number] OG: 03/23/24 08:[address]: Sakshi Alvarez DEPT: Surgical Specimen RECD BY: Kathy James ENTERED: 03/23/24 12:44 SP TYPE: GB OTHR DR: Cecy Rasmussen Tissues: 1 - GALLBLADDER Procedures: GROSS AND MICRO LEVEL 3 Comments: [id number]
--- NOTE | 2024-03-23 09:36 | ROE_ITS ---
Date of service: 03/23/24 Time of Service: 09:37 Operative Note Operative Note DATE OF PROCEDURE: 03/23/24 PRE-OP DIAGNOSIS: Biliary dyskinesia/chronic cholecystitis POST-OP DIAGNOSIS: same (Also incidental umbilical hernia) PROCEDURE: Laparoscopic cholecystectomy and repair of incidental umbilical hernia SURGEON: Sakshi Padilla ASSISTING SURGEON: Radha Dover ANESTHESIA TYPE: Local By Surgeon and General LMA/ETT Refer to Anesthesia Record ESTIMATED BLOOD LOSS: 5 PATHOLOGY: other COMPLICATIONS: None Patient was transported to: PACU Patient's condition: stable Procedure Description: INDICATIONS: The pt is seen at the request of there PCP regarding acute on chronic cholecystitis, cholelithiasis. The pt has failed outpt conservative medical measures and is here today for laparoscopic cholecystectomy. Informed consent was obtained, explaining risks and benefits of the procedure including but not limited to bleeding, infection, pneumonia, blood clots, possible damage to bowel, bladder, blood vessels, bile ducts, possible open procedure, complications of general anesthesia and other unforetold comp lications. PROCEDURE: The patient agrees and is brought to the operative room suite and placed in supine position. Pt receives IV ICG preOp to aid w/ bile duct visualization.? Anesthesia was administered per the Department of Anesthesia. The patient did receive IV antibiotics. NG tube and Ovalle catheter are placed. The patient was prepped and draped in the usual sterile fashion using DuraPrep scrub solution. Pause for the cause was done. 20 mL of 1% buffered lidocaine was used for local anesthetization. 1 cm incision was made in the umbilicus. Hemostat was used to dissect down to the umbilicus. He does have a small umbilical hernia. A finger was placed in the abdomen and swept and there is no underlying adhesions. 5 mm port is inserted and insufflation has begun. The camera was inserted through the port and shows no damage to underlying structures. A 10 mm port was then placed in the epigastric position under direct visualization following creation of local field blocks as well as two 5 mm ports in the right upper quadrant. The camera was moved to one of the secondary ports so we could view the umbilical trocar site, and there is are no hernias or adhesions. The gallbladder fundus was grasped and retracted towards the right shoulder. Infundibulum was grasped and retracted laterally. The hepat-duodenal ligament is entered. The cystic duct and artery are dissected out and the most inferior portion of the gallbladder plate is removed from the liver and the critical view of safety was obtained after clearing away all fatty material. Endo Clips were placed across the duct and artery and these structures are divided. The remainder of the gallbladder was excised from the liver bed. The gallbladder was placed in a bag and brought out. Examination of the gallbladder shows indeed the cystic duct and artery to have been divided. The remainder of the abdomen was copiously irrigated with a liter of saline. All saline is removed. There is no bleeding or bile leakage from the liver bed or the clips sites. An EndoClose needle was used to close the 10 mm port site with an 0 Vicryl. All ports and instruments are removed. SPonge and needle counts are correct. Pneumoperitoneum is evacuated and the port sites are monitored to make sure there is no bleeding at the time of desufflation. ?The fascia under the umbilicus was closed with 0 Vicryl. ?Port sites are irrigated and the skin is closed with 4-0 Monocryl in a running subcuticular fashion. Skin glue sterile dressings are applied. The patient tolerated the procedure well without complications, transferred to the recovery room in stable condition. SAKSHI PADILLA, DO
[2024-03-23] MEDS: fentaNYL 100 MCG/2 ML VIAL IVP ×2 (10:25→10:35)
[2024-03-23] MEDS: HYDROmorphone 2 MG/ML SYR IVP (10:54)
[2024-03-23] MEDS: Normal Saline 10 ML VIAL IJ (10:54)
[2024-03-23] MEDS: FAMOTIDINE 20 MG/50 ML BAG 200 MG IVPB (11:20)
--- NOTE | 2024-03-23 13:08 | W.ANESPOSTOP ---
Postoperative Evaluation Date, Time and Location Date Performed: 03/23/24 Time Performed: 13:08 Patient Location: Day Surgery Unit Vital Signs Most Recent Imported Vital Signs: Most Recent Vital Signs Temp Pulse Resp BP Pulse Ox 36.7 C 77 18 134/69 96 03/23/24 12:36 03/23/24 12:36 03/23/24 12:36 03/23/24 12:36 03/23/24 12:36 Pain Score Most Recent Pain Score: Most Recent Pain Score Pain Level 9 03/23/24 11:20 Assessment Mental Status: Arousable with meaningful communication Airway and Respiratory Function: Patent airway with normal (patient baseline) respiratory exam Cardiovascular Function: Hemodynamically Stable Hydration Status: Adequately Hydrated Nausea & Vomiting: No Nausea or Vomiting Pain: Pain is tolerable per patient Peripheral Nerve Block: Patient did not receive a nerve block Postoperative Comments:: Feels more sleepy than after his endoscopy. We discussed the differences between endo (prop only, for a short duration) vs lap neo (prop, pain meds for a longer duration).
== END 2024-03-23 13:35 | disposition home or self-care (01) ==
LOC: SUR 06:16
PROVIDERS: PCP Internal Medicine; Visit Provider Surgery
PROC: 0FT44ZZ Resection of Gallbladder, Percutaneous Endoscopic Approach (ICD-10-PCS; CPT 47562; principal; 2024-03-23 07:30)
DX: K81.1 Chronic cholecystitis (principal); K42.9 Umbilical hernia without obstruction or gangrene; K82.8 Other specified diseases of gallbladder
CPT/HCPCS: 47562; 88304; J0690; J1100; J1170; J1171; J1836; J2001; J2250; J2371; J2405; J2704; J3010